=== PATIENT | female | born 1960 | race African-American/Black ===

== ENCOUNTER 2023-11-22 01:06 | Inpatient (IN) ==
[2023-11-22] MEDS: SODIUM CHLORIDE 0.9% 1,000 ML IV STA (01:37)
--- NOTE | 2023-11-22 01:37 | Emergency Department Note ---
History of Present Illness General Chief complaint: Abdominal Pain Stated complaint: ABD PAIN Time Seen by Provider: 11/22/23 01:20 History of Present Illness Maximum Pain Intensity: 9 This 62-year-old female presents the ER complaining of mid abdominal discomfort. Patient has history of constipation. She had a normal colonoscopy in the past. She has had gastric surgery. This was done 10 years ago in [facility]. She had a partial hysterectomy. No other stomach surgeries. Patient denies chest pain, dyspnea, fevers, vomiting, diarrhea. Patient also states has been feeling more rundown lately and sometimes lightheaded. Patient's heart rate did drop and she had an abnormal rhythm on the monitor. I did ask the tech to do an EKG. She was found to be heart block Mobitz type I. Home Medications Medication Instructions Recorded Confirmed Type amlodipine 10 mg tablet 10 mg PO QAM 11/22/23 11/22/23 History losartan 100 mg tablet 100 mg PO QAM 11/22/23 11/22/23 History Allergies Allergy/AdvReac Type Severity Reaction Status Date / Time latex Allergy Severe RESP Verified 11/22/23 01:54 DISTRESS/HIVES sulfamethoxazole Allergy Severe RESP Verified 11/22/23 01:54 [From Bactrim] DISTRESS/HIVES theophylline [From Rony-Dur] Allergy Severe RESP Verified 11/22/23 01:54 DISTRESS/HIVES trimethoprim [From Bactrim] Allergy Severe RESP Verified 11/22/23 01:54 DISTRESS/HIVES Past Med/Surg History Problem List (Updated 11/22/23 @ 03:03 by Arlyn Patiño PA-C) Abdominal pain (Acute) Atrioventricular block, Mobitz type 1, Wenckebach (Acute) Social History Smoking Status: Never smoker Preferred Language: Macedonian Current Living Situation: Significant Other Feels Safe at Home: Yes Review of Systems A total of 10 systems reviewed and were otherwise negative Physical Exam Vital Signs Vital Signs - 24 hr 11/22/23 01:18 11/22/23 01:42 11/22/23 01:46 Temperature 36.9 C Temperature Source Temporal Artery Scan Pulse Rate 70 73 64 Pulse Rate from SpO2 Sensor 76 Pulse Rhythm Respiratory Rate 16 22 Respiratory Effort / Characteristics Non-Labored Spontaneous Respiratory Depth Normal Blood Pressure 134/76 147/85 H Blood Pressure Mean 95 105 Blood Pressure Position Sitting Pulse Oximetry 98 100 Oxygen Delivery Method Room Air Sepsis Recent Fever Within 48 Hours No Sepsis New/Unexplained Change in Mental Status N/A Sepsis Action Taken by Nursing No Action Required 11/22/23 01:52 11/22/23 02:00 11/22/23 02:01 Temperature Temperature Source Pulse Rate 53 L 78 69 Pulse Rate from SpO2 Sensor 69 Pulse Rhythm Regular Respiratory Rate 18 18 Respiratory Effort / Characteristics Respiratory Depth Blood Pressure 140/79 Blood Pressure Mean 98 Blood Pressure Position Pulse Oximetry 98 98 Oxygen Delivery Method Room Air Room Air Sepsis Recent Fever Within 48 Hours Sepsis New/Unexplained Change in Mental Status Sepsis Action Taken by Nursing VITALS: Vitals are noted on the nurse's note and reviewed by myself. Vital signs stable. GENERAL: Pleasant female, in no acute distress, nondiaphoretic, well-developed well-nourished. SKIN: Capillary reflex less than 2 seconds. HEENT: Normocephalic. PERRLA. EOMI. Nares patent. Mucous membranes moist. Neck is supple without nuchal rigidity. HEART: Regular rate and rhythm LUNGS: Clear to auscultation bilaterally without wheezes, rales or rhonchi. No retractions or accessory muscle use. ABDOMEN: Positive bowel sounds x 4. Normal tympanic percussion. Soft, diffuse tenderness, without masses or organomegaly. Canseco sign negative. No guarding or rebound tenderness. no CVA tenderness MUSCULOSKELETAL: No gross musculoskeletal defects. NEURO: Patient was alert and oriented to person place and time. No focal neurological deficits. Course Administered Medications Discontinued Medications Sodium Chloride (Nss) 1,000 mls @ 999 mls/hr IV .Q1H1M STA Stop: 11/22/23 02:31 Last Infusion: 11/22/23 02:38 Dose: Infused Documented By: Admin: 11/22/23 01:37 Dose: 999 mls/hr Documented By: NIDHI Ioversol (Optiray 320 100ml) 100 ml IV ONCE ONE Stop: 11/22/23 02:42 Last Admin: 11/22/23 02:41 Dose: 93 ml Documented By: CARSON Medical Decision Making Medical Records Attestation: I reviewed the patient's medical records. Home Medications Current Medication List: was personally reviewed by il Laboratory Data Attestation: I reviewed the patient's lab results. 11/22/23 01:36 11/22/23 01:36 Lab Results 11/22/23 Range/Units 01:36 WBC 5.77 (4.8-10.8) K/ul RBC 3.62 L (4.20-5.40) M/uL Hgb 10.6 L (12.0-16.0) g/dl Hct 32.6 L (37.0-47.0) % MCV 90.1 (80.0-100.0) fL MCH 29.3 (25.0-34.0) pg MCHC 32.5 (32.0-36.0) g/dL RDW Std Deviation 43.7 (36.4-46.3) fL RDW Coeff of Albina 13.2 (11.5-14.5) % Plt Count 245 (130-400) K/uL MPV 11.6 (9.4-12.4) fL Immature Gran % (Auto) 0.2 % Neut % (Auto) 52.7 % Lymph % (Auto) 34.1 % Runnels % (Auto) 7.1 % Eos % (Auto) 5.4 % Baso % (Auto) 0.5 % Neut # (Auto) 3.04 (1.40-6.50) K/uL Lymph # (Auto) 1.97 (1.20-3.40) K/uL Runnels # (Auto) 0.41 (0.11-0.59) K/uL Eos # (Auto) 0.31 (0.00-0.50) K/uL Baso # (Auto) 0.03 (0.00-0.20) K/uL Immature Gran # (Auto) 0.01 (0.01-0.20) K/uL Sodium 139 (136-145) mmol/L Potassium 4.0 (3.5-5.1) mmol/L Chloride 107 (98-107) mmol/L Carbon Dioxide 24 (21-32) mmol/L Anion Gap 8 (3-11) BUN 11 (6-23) mg/dl Creatinine 0.68 (0.6-1.2) mg/dl Est Cr Clr Drug Dosing 98.0 ml/min Est GFR ( Amer) 109.4 ml/min Est GFR (Non-Af Amer) 94.4 ml/min BUN/Creatinine Ratio 16.2 (10-20) Glucose 91 (70-99(Fasting)) mg/dl Calcium 9.4 (8.6-10.3) mg/dl Magnesium 2.0 (1.7-2.4) mg/dl Total Bilirubin 0.4 (0.2-1.0) mg/dl AST 18 (13-39) U/L ALT 8 (7-52) U/L Alkaline Phosphatase 66 (34-104) U/L Troponin I High Sens 3.0 (0-14) pg/ml Total Protein 7.4 (6.0-8.3) gm/dl Albumin 4.1 (3.4-5.0) gm/dl Globulin 3.3 (2.5-4.0) gm/dl Albumin/Globulin Ratio 1.2 (0.9-2) Lipase 42 (11-82) U/L TSH 3.075 (0.300-4.500) uIu/ml Imaging Data Attestation: I personally reviewed and interpreted this imaging study as follows: Radiologist's Impression: Abdomen/Pelvis CT 11/22/23 01:32 Exam(s): CT ABDOMEN + PELVIS With Contrast EXAM: CT Abdomen and Pelvis With Intravenous Contrast CLINICAL HISTORY: Reason for exam: mid abd pain. TECHNIQUE: Axial computed tomography images of the abdomen and pelvis with intravenous contrast. CTDI is 27.51 mGy and DLP is 1328.43 mGy-cm. Automated exposure control was utilized for the study. A dose lowering technique was utilized adhering to the principles of ALARA. CONTRAST: Contrast must be dictated COMPARISON: No relevant prior studies available. FINDINGS: Lung bases: Unremarkable. No mass. No consolidation. ABDOMEN: Liver: Unremarkable. No mass. Gallbladder and bile ducts: Unremarkable. No calcified stones. No ductal dilation. Pancreas: Unremarkable. No mass. No ductal dilation. Spleen: Unremarkable. No splenomegaly. Adrenals: Unremarkable. No mass. Kidneys and ureters: Unremarkable. No solid mass. No hydronephrosis. Stomach and bowel: Gastric sleeve. Diverticulosis, without acute diverticulitis. No small bowel obstruction. No free intraperitoneal air. PELVIS: Appendix: No findings to suggest acute appendicitis. Bladder: Unremarkable. No mass. Reproductive: Unremarkable as visualized. ABDOMEN and PELVIS: Intraperitoneal space: Unremarkable. No free air. No significant fluid collection. Bones/joints: Degenerative changes of the spine. No acute fracture. No dislocation. Soft tissues: Unremarkable. Vasculature: Atherosclerotic changes of the aorta. No abdominal aortic aneurysm. Lymph nodes: Unremarkable. No enlarged lymph nodes. IMPRESSION: Diverticulosis, without acute diverticulitis. No small bowel obstruction. No free intraperitoneal air. Electronically signed by: Anuj Mcmullen MD 11/22/23 02:52 AM MDM Narrative Prior records/ancillary studies reviewed. Triage Nursing notes reviewed. Additional history obtained from nursing. The patient's history was concerning for abdominal pain. Differential diagnosis: Etiologies such as appendicitis, diverticulitis, PUD, biliary pathology, UTI, pancreatitis, obstruction, mesenteric ischemia, aortic pathology, infections, inflammatory bowel disease, renal colic, as well as others were entertained. Physical examination findings: As above. ER treatment provided: An order was placed for continuous cardiac monitoring. The monitor shows a rate of 60-100 with a sinus rhythm per my Independent interpretation. IV fluids On reassessment the patient felt better. Diagnostics interpreted by me: EKG was ordered for abnormal rhythm seen on monitor EKG: Sinus rhythm, no acute ST-T changes, with type II heart block Mobitz type I, impression type II heart block Mobitz type I per my independent interpretation The labs Independently Interpreted by myself revealed negative troponin, euthyroid, no worrisome leukocytosis Imaging studies: CT as above Consultation: A consultation was placed with the hospitalist. The case was discussed and diagnostics were reviewed. The patient was evaluated in the ER for further treatment. Exam and history seem consistent with new Mobitz type I heart block he has been feeling more rundown and lightheaded. CAT scan was negative. Medicine was consulted and case was discussed. Patient will be admitted to the medical service. By the evaluation outlined above emergent etiologies such as appendicitis, diverticulitis, PUD, biliary pathology, UTI, pancreatitis, obstruction, mesenteric ischemia, aortic pathology, infections, inflammatory bowel disease, renal colic, as well as others were deemed relatively unlikely. The pt informed about the findings as listed above. All questions were answered and pleased with the treatment. The chart was completed utilizing [employer] voice recognition software. Grammatical errors, random word insertions, pronoun errors, and incomplete sentences are an occassional consequence of this system due to software limitations, ambient noise, and hardware issues. Any formal questions or concerns about the content, text, or information contained within the body of this dictation should be directly addressed to the physician dam tender assistant for clarification. Impression & Plan Atrioventricular block, Mobitz type 1, Wenckebach, Abdominal pain Discharge Plan Visit Data Chief Complaint: Abdominal Pain Stated Complaint: ABD PAIN ED Provider: Leonidas Lind ED Midlevel Provider: Arlyn Patiño Discharge Problem: Atrioventricular block, Mobitz type 1, Wenckebach, Abdominal pain Patient Disposition: Admitted As Inpatient Condition: Good Forms Stand Alone Forms: [facility] [place] [employer] Prescriptions Prescriptions: No Action amlodipine 10 mg tablet 10 mg PO QAM losartan 100 mg tablet 100 mg PO QAM Referrals Referrals: PCP,NO [Physician] -
[2023-11-22 01:49] LABS: Basophils # (auto) 0.03 K/uL (0.00-0.20); Basophils % (auto) 0.5 %; Eosinophils # (auto) 0.31 K/uL (0.00-0.50); Eosinophils % (auto) 5.4 %; Hematocrit (blood only) 32.6 % (37.0-47.0); Hemoglobin 10.6 g/dl (12.0-16.0); Immature Granulocytes # (auto) 0.01 K/uL (0.01-0.20); Immature Granulocytes % (auto) 0.2 %; Lymphocytes # (auto) 1.97 K/uL (1.20-3.40); Lymphocytes % (auto) 34.1 %; Mean Corpuscular Hemoglobin 29.3 pg (25.0-34.0); Mean Corpuscular Hgb Conc 32.5 g/dL (32.0-36.0); Mean Corpuscular Volume 90.1 fL (80.0-100.0); Mean Platelet Volume 11.6 fL (9.4-12.4); Monocytes # (auto) 0.41 K/uL (0.11-0.59); Monocytes % (auto) 7.1 %; Neutrophils # (auto) 3.04 K/uL (1.40-6.50); Neutrophils % (auto) 52.7 %; Platelet Count 245 K/uL (130-400); RDW Coefficient of Variation 13.2 % (11.5-14.5); RDW Standard Deviation 43.7 fL (36.4-46.3); Red Blood Count 3.62 M/uL (4.20-5.40); White Blood Count 5.77 K/ul (4.8-10.8)
[2023-11-22 02:06] LABS: Albumin Globulin Ratio 1.2 (0.9-2); Albumin Level 4.1 gm/dl (3.4-5.0); BUN Creatinine Ratio 16.2 (10-20); Bilirubin,Total 0.4 mg/dl (0.2-1.0); Calcium 9.4 mg/dl (8.6-10.3); Est GFR (African American) 109.4 ml/min; Est GFR (Non-African American) 94.4 ml/min; Globulin 3.3 gm/dl (2.5-4.0); Total Protein 7.4 gm/dl (6.0-8.3)
[2023-11-22 02:21] LABS: Thyroid Stimulating Hormone 3.075 uIu/ml (0.300-4.500)
[2023-11-22] MEDS: OPTIRAY 320 100ml IV ONE (02:41)
--- NOTE | 2023-11-22 02:53 | CT Scan Report ---
Exam(s): CT ABDOMEN + PELVIS With Contrast EXAM: CT Abdomen and Pelvis With Intravenous Contrast CLINICAL HISTORY: Reason for exam: mid abd pain. TECHNIQUE: Axial computed tomography images of the abdomen and pelvis with intravenous contrast. CTDI is 27.51 mGy and DLP is 1328.43 mGy-cm. Automated exposure control was utilized for the study. A dose lowering technique was utilized adhering to the principles of ALARA. CONTRAST: Contrast must be dictated COMPARISON: No relevant prior studies available. FINDINGS: Lung bases: Unremarkable. No mass. No consolidation. ABDOMEN: Liver: Unremarkable. No mass. Gallbladder and bile ducts: Unremarkable. No calcified stones. No ductal dilation. Pancreas: Unremarkable. No mass. No ductal dilation. Spleen: Unremarkable. No splenomegaly. Adrenals: Unremarkable. No mass. Kidneys and ureters: Unremarkable. No solid mass. No hydronephrosis. Stomach and bowel: Gastric sleeve. Diverticulosis, without acute diverticulitis. No small bowel obstruction. No free intraperitoneal air. PELVIS: Appendix: No findings to suggest acute appendicitis. Bladder: Unremarkable. No mass. Reproductive: Unremarkable as visualized. ABDOMEN and PELVIS: Intraperitoneal space: Unremarkable. No free air. No significant fluid collection. Bones/joints: Degenerative changes of the spine. No acute fracture. No dislocation. Soft tissues: Unremarkable. Vasculature: Atherosclerotic changes of the aorta. No abdominal aortic aneurysm. Lymph nodes: Unremarkable. No enlarged lymph nodes. IMPRESSION: Diverticulosis, without acute diverticulitis. No small bowel obstruction. No free intraperitoneal air. Electronically signed by: Anuj Mcmullen MD 11/22/23 02:52 AM
[2023-11-22 04:29] LABS: Appearance Urine Clear (Clear); Bacteria Urine Automated None Seen (None Seen); Bilirubin Urine Negative (Negative); Blood Urine Negative (Negative); Cast Urine Automated 0-2 /lpf (0-2); Color Urine Yellow; Epithelial Cell Urine Auto 0-2 /hpf (0-2); Glucose Urine UA Negative (Negative); Ketones Urine Trace (Negative); Leukocyte Esterase Urine 1+ (Negative); Nitrite Urine Negative (Negative); Protein Urine Negative (Negative); RBC Urine Automated 0-2 /hpf (0-2); Specific Gravity Urine 1.029 (1.000-1.030); Urobilinogen Urine Negative (Negative); WBC Urine Automated 0-5 /hpf (0-5); pH Urine 5.5 (4.5-7.5)
[2023-11-22 06:02] LABS: Lyme Screen Rflx Confirmation Positive (Negative)
[2023-11-22 06:36] LABS: Lyme Ab IgG 2nd Tier Confirm Positive (Negative); Lyme Ab IgM 2nd Tier Confirm Negative (Negative)
[2023-11-22] MEDS ORDERED: POLYETHYLENE (MIRALAX) 17 GM PACK PO PRN (08:39)
[2023-11-22] MEDS ORDERED: NITROGLYCERIN SL 0.4 MG/TAB TAB SL PRN (08:39)
--- NOTE | 2023-11-22 09:03 | History & Physical Report ---
Date of Service November 22, 2023 Assessment & Plan (1) Atrioventricular block, Mobitz type 1, Ari: Plan: 62-year-old female with past medical history significant for type 2 diabetes, obstructive sleep apnea on BIPAP, hypertension, depression ,bipolar 1 disorder, s/p gastric sleeve procedure comes in because of abdominal pain. Patient says lately having constipation. Using stool softener. Last night had severe abdominal pain which prompted her to come to the ER. Currently abdominal pain got resolved but EKG showed stable Mobitz type 1 heart block. Patient states she was told couple of weeks ago to stop bipap as she no longer has sleep apnea. But then patient felt weak and slow she restarted herself BiPAP last week and seems topped her psychiatric meds. Says she has feeling of strain in her heart and thinks its from not using bipap while sleeping.She has some feeling of straining of heart now. Denies any fevers. No shortness of breath. No nausea. No headache. No blurred vision. No runny nose or sore throat. No cough. Normal micturition. No fevers. Hemodynamics are okay. She is from [place] and recently moved to [place]. Mobitz type I heart block Lyme screen came back positive will start on Rocephin follow echo telemetry consult cardiology for further recommendations obstructive sleep apnea on BiPAP hypertension on amlodipine and losartan will monitor diabetes currently not on meds will follow HbA1c levels obesity s/p gastric sleeve procedure abdominal pain currently resolved CT abdomen pelvis okay lipase is okay history of depression and bipolar 1 disorder currently not on any medications. DVT prophylaxis SCDs for now disposition telemetry full code. History of Present Illness Chief Complaint: Abdominal pain. Mobitz type I heart block Primary Care Provider: Any Gutierrez MD 62-year-old female with past medical history significant for type 2 diabetes, obstructive sleep apnea on BIPAP, hypertension, depression ,bipolar 1 disorder, s/p gastric sleeve procedure comes in because of abdominal pain. Patient says lately having constipation. Using stool softener. Last night had severe abdominal pain which prompted her to come to the ER. Currently abdominal pain got resolved but EKG showed stable Mobitz type 1 heart block. Patient states she was told couple of weeks ago to stop bipap as she no longer has sleep apnea. But then patient felt weak and slow she restarted herself BiPAP last week and seems topped her psychiatric meds. Says she has feeling of strain in her heart and thinks its from not using bipap while sleeping.She has some feeling of straining of heart now. Denies any fevers. No shortness of breath. No nausea. No headache. No blurred vision. No runny nose or sore throat. No cough. Normal micturition. No fevers. Hemodynamics are okay. She is from [facility] and recently moved to [place]. Past medical history. As mentioned above past surgical history. Left breast biopsy. Gastric bypass for obesity. Reduction of breast. Abortions. Hysterectomy with removal of ovaries. Social history. Remote history of smoking.. No alcohol use. drug use. Family history. Father from seizures. Mother had a pacemaker. Brother and sister on dialysis. Allergies Allergy/AdvReac Type Severity Reaction Status Date / Time latex Allergy Severe RESP Verified 11/22/23 01:54 DISTRESS/HIVES sulfamethoxazole Allergy Severe RESP Verified 11/22/23 01:54 [From Bactrim] DISTRESS/HIVES theophylline [From Rony-Dur] Allergy Severe RESP Verified 11/22/23 01:54 DISTRESS/HIVES trimethoprim [From Bactrim] Allergy Severe RESP Verified 11/22/23 01:54 DISTRESS/HIVES Home Medications Medication Instructions Recorded Confirmed Type amlodipine 10 mg tablet 10 mg PO QAM 11/22/23 11/22/23 History losartan 100 mg tablet 100 mg PO QAM 11/22/23 11/22/23 History Past Med/Surg History Problem List (Updated 11/22/23 @ 03:03 by Arlyn Patiño PA-C) Abdominal pain (Acute) Atrioventricular block, Mobitz type 1, Wenckebach (Acute) Social History Smoking Status: Never smoker Hx Alcohol Use: Yes Alcohol type: wine Hx Substance Use: No Preferred Language: Upper Sorbian Communication Ability: Effective Hand Tacker Required: No Beliefs That Will Affect Care: Islam Islam Beliefs: Advent, pentacostal. Current Living Situation: Spouse Current Living Situation Comment: Lives with and 1 grandson. Other Information That Helps Us Care for You: No Feels Safe at Home: Yes Safety Concerns: Feels Safe At This Time Assistive Devices: Brace/Splint/Immobilizer Assistive Devices Comment: L wrist splint worn PRN strain. Review of Systems Review of Systems: All systems reviewed & are unremarkable except as noted in HPI & below Physical Exam Physical Exam: General- Not in distress Head- atraumatic Eyes- PERRL. ENT- oropharynx clear Neck- supple, no JVD. Lungs- clear to auscultation no wheezing or crackles. Heart- regular rhythm; no murmur, no gallop. Abdomen- normal bowel sounds, soft, nontender, no distension. Extremities- no pretibial edema, no erythema seen Neuro- alert, oriented PERRL, no facial palsy; no dysarthria; moves extremities Results & Data Results & Data Vital Signs (Past 12 Hours) Vital Signs Temp Pulse Resp BP Pulse Ox O2 Del Method 11/22/23 06:30 62 16 130/70 98 Room Air 11/22/23 05:31 48 L 16 125/75 98 Room Air 11/22/23 05:00 47 L 17 183/88 H 96 Room Air 11/22/23 05:00 43 L 11/22/23 04:30 50 L 16 134/75 100 Room Air 11/22/23 04:00 75 18 160/77 H 100 Room Air 11/22/23 03:30 56 L 16 162/88 H 98 Room Air 11/22/23 02:01 69 18 140/79 98 Room Air 11/22/23 02:00 78 18 98 Room Air 11/22/23 01:52 53 L 11/22/23 01:46 64 11/22/23 01:42 73 22 147/85 H 100 11/22/23 01:18 36.9 C 70 16 134/76 98 Room Air Diagnostic Findings Laboratory Results WBC 5.77 K/ul (4.8-10.8) 11/22/23 01:36 RBC 3.62 M/uL (4.20-5.40) L 11/22/23 01:36 Hgb 10.6 g/dl (12.0-16.0) L 11/22/23 01:36 Hct 32.6 % (37.0-47.0) L 11/22/23 01:36 MCV 90.1 fL (80.0-100.0) 11/22/23 01:36 MCH 29.3 pg (25.0-34.0) 11/22/23 01:36 MCHC 32.5 g/dL (32.0-36.0) 11/22/23 01:36 RDW Std Deviation 43.7 fL (36.4-46.3) 11/22/23 01:36 RDW Coeff of Albina 13.2 % (11.5-14.5) 11/22/23 01:36 Plt Count 245 K/uL (130-400) 11/22/23 01:36 MPV 11.6 fL (9.4-12.4) 11/22/23 01:36 Immature Gran % (Auto) 0.2 % 11/22/23 01:36 Neut % (Auto) 52.7 % 11/22/23 01:36 Lymph % (Auto) 34.1 % 11/22/23 01:36 Zavala % (Auto) 7.1 % 11/22/23 01:36 Eos % (Auto) 5.4 % 11/22/23 01:36 Baso % (Auto) 0.5 % 11/22/23 01:36 Neut # (Auto) 3.04 K/uL (1.40-6.50) 11/22/23 01:36 Lymph # (Auto) 1.97 K/uL (1.20-3.40) 11/22/23 01:36 Zavala # (Auto) 0.41 K/uL (0.11-0.59) 11/22/23 01:36 Eos # (Auto) 0.31 K/uL (0.00-0.50) 11/22/23 01:36 Baso # (Auto) 0.03 K/uL (0.00-0.20) 11/22/23 01:36 Immature Gran # (Auto) 0.01 K/uL (0.01-0.20) 11/22/23 01:36 Sodium 139 mmol/L (136-145) 11/22/23 01:36 Potassium 4.0 mmol/L (3.5-5.1) 11/22/23 01:36 Chloride 107 mmol/L (98-107) 11/22/23 01:36 Carbon Dioxide 24 mmol/L (21-32) 11/22/23 01:36 Anion Gap 8 (3-11) 11/22/23 01:36 BUN 11 mg/dl (6-23) 11/22/23 01:36 Creatinine 0.68 mg/dl (0.6-1.2) 11/22/23 01:36 Est Cr Clr Drug Dosing 98.0 ml/min 11/22/23 01:36 Est GFR ( Amer) 109.4 ml/min 11/22/23 01:36 Est GFR (Non-Af Amer) 94.4 ml/min 11/22/23 01:36 BUN/Creatinine Ratio 16.2 (10-20) 11/22/23 01:36 Glucose 91 mg/dl (70-99(Fasting)) 11/22/23 01:36 Calcium 9.4 mg/dl (8.6-10.3) 11/22/23 01:36 Magnesium 2.0 mg/dl (1.7-2.4) 11/22/23 01:36 Total Bilirubin 0.4 mg/dl (0.2-1.0) 11/22/23 01:36 AST 18 U/L (13-39) 11/22/23 01:36 ALT 8 U/L (7-52) 11/22/23 01:36 Alkaline Phosphatase 66 U/L (34-104) 11/22/23 01:36 Troponin I High Sens 3.0 pg/ml (0-14) 11/22/23 01:36 Total Protein 7.4 gm/dl (6.0-8.3) 11/22/23 01:36 Albumin 4.1 gm/dl (3.4-5.0) 11/22/23 01:36 Globulin 3.3 gm/dl (2.5-4.0) 11/22/23 01:36 Albumin/Globulin Ratio 1.2 (0.9-2) 11/22/23 01:36 Lipase 42 U/L (11-82) 11/22/23 01:36 TSH 3.075 uIu/ml (0.300-4.500) 11/22/23 01:36 Urine Color Yellow 11/22/23 Unknown Urine Appearance Clear (Clear) 11/22/23 Unknown Urine pH 5.5 (4.5-7.5) 11/22/23 Unknown Ur Specific Winters 1.029 (1.000-1.030) 11/22/23 Unknown Urine Protein Negative (Negative) 11/22/23 Unknown Urine Glucose (UA) Negative (Negative) 11/22/23 Unknown Urine Ketones Trace (Negative) H 11/22/23 Unknown Urine Blood Negative (Negative) 11/22/23 Unknown Urine Nitrite Negative (Negative) 11/22/23 Unknown Urine Bilirubin Negative (Negative) 11/22/23 Unknown Urine Urobilinogen Negative (Negative) 11/22/23 Unknown Ur Leukocyte Esterase 1+ (Negative) H 11/22/23 Unknown Urine WBC (Auto) 0-5 /hpf (0-5) 11/22/23 Unknown Urine RBC (Auto) 0-2 /hpf (0-2) 11/22/23 Unknown U Hyaline Cast (Auto) 0-2 /lpf (0-2) 11/22/23 Unknown U Epithel Cells (Auto) 0-2 /hpf (0-2) 11/22/23 Unknown Urine Bacteria (Auto) None Seen (None Seen) 11/22/23 Unknown Lyme Disease Screen Positive (Negative) H 11/22/23 04:23 Lyme Tier 2 IgG Confirm Positive (Negative) H 11/22/23 04:23 Lyme Tier 2 IgM Confirm Negative (Negative) 11/22/23 04:23 Impressions Abdomen/Pelvis CT 11/22/23 01:32 Exam(s): CT ABDOMEN + PELVIS With Contrast EXAM: CT Abdomen and Pelvis With Intravenous Contrast CLINICAL HISTORY: Reason for exam: mid abd pain. TECHNIQUE: Axial computed tomography images of the abdomen and pelvis with intravenous contrast. CTDI is 27.51 mGy and DLP is 1328.43 mGy-cm. Automated exposure control was utilized for the study. A dose lowering technique was utilized adhering to the principles of ALARA. CONTRAST: Contrast must be dictated COMPARISON: No relevant prior studies available. FINDINGS: Lung bases: Unremarkable. No mass. No consolidation. ABDOMEN: Liver: Unremarkable. No mass. Gallbladder and bile ducts: Unremarkable. No calcified stones. No ductal dilation. Pancreas: Unremarkable. No mass. No ductal dilation. Spleen: Unremarkable. No splenomegaly. Adrenals: Unremarkable. No mass. Kidneys and ureters: Unremarkable. No solid mass. No hydronephrosis. Stomach and bowel: Gastric sleeve. Diverticulosis, without acute diverticulitis. No small bowel obstruction. No free intraperitoneal air. PELVIS: Appendix: No findings to suggest acute appendicitis. Bladder: Unremarkable. No mass. Reproductive: Unremarkable as visualized. ABDOMEN and PELVIS: Intraperitoneal space: Unremarkable. No free air. No significant fluid collection. Bones/joints: Degenerative changes of the spine. No acute fracture. No dislocation. Soft tissues: Unremarkable. Vasculature: Atherosclerotic changes of the aorta. No abdominal aortic aneurysm. Lymph nodes: Unremarkable. No enlarged lymph nodes. IMPRESSION: Diverticulosis, without acute diverticulitis. No small bowel obstruction. No free intraperitoneal air. Electronically signed by: Anuj Mcmullen MD 11/22/23 02:52 AM ECG Additional Comments: ECG sinus rhythm with second-degree AV block Mobitz type I At rate of 48. No acute ST changes seen. Code Status & VTE Plan VTE Prophylaxis Plan VTE Prophylaxis will be ordered: Yes
--- NOTE | 2023-11-22 09:14 | Cardiology Consultation ---
Date of Consultation November 22, 2023 Assessment & Plan (1) Positive Lyme disease serology: (2) Atrioventricular block, Mobitz type 1, Wenckebach: (3) Abdominal pain: (4) Hypertension: Plan Assessment: 62 year-old female with no prior history of conduction disease presents for abdominal pain, profound fatigue and feelings of "slow heart rates". Plan: -No known tick bites, no rashes or localized rashes;however, has been out in high exposure areas. -Positive Lyme with positive IgG, but negative IgM making it difficult to assert the lymes as a definitive cause of her heart block. -Extensive review of telemetry shows intermittent SB/SR with 2nd degree Mobitz I (Wenckebach) heart block. No evidence of type II or third degree heart block per review. -Patient denies any dizziness, lightheadedness or near syncopal symptoms. -Started on IV Rocephin and PO Doxycycline -Abnormal UA with patient reports of some UTI symptoms. given her abdominal pain with negative CT, would consider possible UTI. patient already receiving Rocephin. -Obtain echocardiogram to assess overall structure and function. -BP controlled at this time. Continue Losartan 100mg Daily and Amlodipine 10mg Daily as per current regimen. Case has been discussed with Dr. Cr. Further recommendations regarding plan of care as per his assessment. I spent a total of 40 minutes on the date of service in preparation, delivery, documentation of the care provided to the patient excluding any time spent in the performance of separately billed services. ELLIE Munroe [facility] Cardiology [facility] Supervising Physician Co-Signing Physician Notes Attending attestation: Case reviewed with the advanced practitioner. I have personally performed a history and physical examination on the patient. I have reviewed the advanced practitioner's documentation on the date of service referenced in note, and I agree with, and take responsibility for the plan of care. Subjective: Patient with vague illness of several months duration, generalized progressive debilitating fatigue. No definite fever or rash. Does of course live in an endemic area for Lyme disease. Exam: Cardiovascular regular rhythm, no murmurs, no edema Data: EKG performed 11/22/2023 at 2:11 AM: Sinus rhythm at 50 bpm with Mobitz type I second-degree AV block. Intermittent Mobitz second-degree AV block persisted until approximately 6 AM on telemetry, sinus rhythm in the 70s to 80s noted most recently. High-sensitivity troponin negative x 2 IgG Lyme positive, IgM Lyme negative Impression/ Plan: Generalized fatigue, sinus bradycardia with Mobitz type I second-degree heart block (Wenckebach block) noted on presentation. Perhaps related to Lyme carditis however Lyme exposure appears to be subacute or chronic. Continue telemetry monitoring while on IV Rocephin. Patient also on oral doxycycline. Echocardiogram has been completed and will be reviewed. I spent a total of 25 minutes coordinating, documenting, and providing care for this patient excluding time spent in the performance of separately billed services or time spent by another provider. Johnathan Cr DO History of Present Illness Reason for Consultation: Siva Gerber heart block Requesting Physician: Gala cabrera Attending Physician: Charles Luciano MD History of Present Illness HPI: Patient is a 62 year old female with PMHx significant for HTN, CJ on CPAP, type 2 DM, bipolar depression, prior gastric sleeve surgery that had initially presented to the ED with complaints of abdominal pain and constipation. She s tates that has felt really "off" the past few weeks. Endorses extreme fatigue, and feeling as though her "heart was moving really slow". Denies any arcelia chest pain, pressure, palpitations, or shortness of breath. Denies any recent cold or flu like symptoms, no fever or chills. She initially attributed her symptoms to being taken of CPAP which has since been restarted, and then thought it was like ly due to stopping changing some of her psych and BP medications. Lyme screen positive. IgG positive. IgM negative. UA abnormal, which patient had mentioned some urinary symptoms. CT of abdomen and pelvis demonstrates diverticulosis with no diverticulitis or obstruction. EKG today 0211: SB with 2nd degree AV block, Mobitz I EKG today 0504: SB with 2nd degree AV block, Mobitz I Patient was started immediately on IV Rocephin and PO doxycycline. Allergies Allergy/AdvReac Type Severity Reaction Status Date / Time latex Allergy Severe RESP Verified 11/22/23 01:54 DISTRESS/HIVES sulfamethoxazole Allergy Severe RESP Verified 11/22/23 01:54 [From Bactrim] DISTRESS/HIVES theophylline [From Rony-Dur] Allergy Severe RESP Verified 11/22/23 01:54 DISTRESS/HIVES trimethoprim [From Bactrim] Allergy Severe RESP Verified 11/22/23 01:54 DISTRESS/HIVES Home Medications Medication Instructions Recorded Confirmed Type amlodipine 10 mg tablet 10 mg PO QAM 11/22/23 11/22/23 History losartan 100 mg tablet 100 mg PO QAM 11/22/23 11/22/23 History Patient History Social History Smoking Status: Never smoker Hx Alcohol Use: Yes Alcohol type: wine Hx Substance Use: No Preferred Language: Urdu Communication Ability: Effective Medicare Biller Required: No Beliefs That Will Affect Care: Evangelical Evangelical Beliefs: Lutheran, pentacostal. Current Living Situation: Spouse Current Living Situation Comment: Lives with and 1 grandson. Other Information That Helps Us Care for You: No Feels Safe at Home: Yes Safety Concerns: Feels Safe At This Time Assistive Devices: Brace/Splint/Immobilizer Assistive Devices Comment: L wrist splint worn PRN strain. Review of Systems Review of Systems: All systems reviewed & are unremarkable except as noted in HPI & below Physical Exam Constitutional: well developed and well nourished; no acute distress and not ill appearing Neck: normal visual inspection and trachea midline Respiratory: normal respiratory effort, lungs clear to auscultation Cardiovascular: Rate/Rhythm: regular rhythm and + bradycardic (Intermittent 2nd degree AVB Mobitz I) Heart Sounds: normal S1 and normal S2; no murmur Vessels: dorsalis pedis pulses present; no JVD Extremities: no edema Skin: no rashes, warm and dry Psychiatric: A+Ox3, euthymic affect Results & Data Vital Signs (Past 12 Hours) Vital Signs Temp Pulse Pulse Resp BP BP Pulse Ox 11/22/23 08:39 11/22/23 08:26 36.5 C 76 18 158/99 H 100 11/22/23 06:30 62 16 130/70 98 11/22/23 05:31 48 L 16 125/75 98 11/22/23 05:00 47 L 17 183/88 H 96 11/22/23 05:00 43 L 11/22/23 04:30 50 L 16 134/75 100 11/22/23 04:00 75 18 160/77 H 100 11/22/23 03:30 56 L 16 162/88 H 98 11/22/23 02:01 69 18 140/79 98 11/22/23 02:00 78 18 98 11/22/23 01:52 53 L 11/22/23 01:46 64 11/22/23 01:42 73 22 147/85 H 100 11/22/23 01:18 36.9 C 70 16 134/76 98 O2 Del Method 11/22/23 08:39 Room Air 11/22/23 08:26 Room Air 11/22/23 06:30 Room Air 11/22/23 05:31 Room Air 11/22/23 05:00 Room Air 11/22/23 05:00 11/22/23 04:30 Room Air 11/22/23 04:00 Room Air 11/22/23 03:30 Room Air 11/22/23 02:01 Room Air 11/22/23 02:00 Room Air 11/22/23 01:52 11/22/23 01:46 11/22/23 01:42 11/22/23 01:18 Room Air Laboratory Results Cardiac Enzymes 11/22/23 11/22/23 Range/Units 01:36 08:49 AST 18 (13-39) U/L Troponin I High Sens 3.0 3.8 (0-14) pg/ml CBC 11/22/23 Range/Units 01:36 WBC 5.77 (4.8-10.8) K/ul RBC 3.62 L (4.20-5.40) M/uL Hgb 10.6 L (12.0-16.0) g/dl Hct 32.6 L (37.0-47.0) % Plt Count 245 (130-400) K/uL Neut # (Auto) 3.04 (1.40-6.50) K/uL Lymph # (Auto) 1.97 (1.20-3.40) K/uL Upson # (Auto) 0.41 (0.11-0.59) K/uL Eos # (Auto) 0.31 (0.00-0.50) K/uL Baso # (Auto) 0.03 (0.00-0.20) K/uL Comprehensive Metabolic Panel 11/22/23 Range/Units 01:36 Sodium 139 (136-145) mmol/L Potassium 4.0 (3.5-5.1) mmol/L Chloride 107 (98-107) mmol/L Carbon Dioxide 24 (21-32) mmol/L BUN 11 (6-23) mg/dl Creatinine 0.68 (0.6-1.2) mg/dl Glucose 91 (70-99(Fasting)) mg/dl Calcium 9.4 (8.6-10.3) mg/dl AST 18 (13-39) U/L ALT 8 (7-52) U/L Alkaline Phosphatase 66 (34-104) U/L Total Protein 7.4 (6.0-8.3) gm/dl Albumin 4.1 (3.4-5.0) gm/dl Intake and Output 11/21/23 11/22/23 11/22/23 22:59 06:59 14:59 Intake Total 1000 / 1000 50 / 50 Balance 1000 / 1000 50 / 50 Intake: IV 1000 / 1000 50 / 50 Sodium Chloride 0.9% 1,000 ml @ 1000 / 1000 999 mls/hr IV .Q1H1M ST[facility] Rx#: [id number] cefTRIAXone SODIUM 2,000 mg In 50 / 50 50 ml @ 100 mls/hr IV Q24H [facility] Rx#:[id number] Other: Weight 89.7 kg 91.9 kg Weight Measurement Method Chair Scale Built in [facility] Patient Weight 11/23/23 06:59 Weight 91.9 kg
[2023-11-22] MEDS: LOSARTAN POTASSIUM 50 MG TAB PO SCH (09:32)
[2023-11-22] MEDS: amLODIPine BESYLATE 5 MG TAB PO SCH (09:33)
--- NOTE | 2023-11-22 09:34 | Electrocardiogram Report ---
Test Reason : Blood Pressure : / mmHG Vent. Rate : 048 BPM Atrial Rate : 068 BPM P-R Int : 000 ms QRS Dur : 096 ms QT Int : 438 ms P-R-T Axes : 061 022 029 degrees QTc Int : 391 ms Sinus rhythm with 2nd degree A-V block (Mobitz I) Abnormal ECG When compared with ECG of 22-NOV-2023 02:11, (unconfirmed) No significant change was found Confirmed by Toby Morse ([id number]) on 11/22/2023 9:33:55 AM Referred By: REFERRED SELF Confirmed By:Toby Morse
--- NOTE | 2023-11-22 09:34 | Electrocardiogram Report ---
Test Reason : Blood Pressure : / mmHG Vent. Rate : 050 BPM Atrial Rate : 065 BPM P-R Int : 000 ms QRS Dur : 090 ms QT Int : 446 ms P-R-T Axes : 065 017 017 degrees QTc Int : 406 ms Sinus rhythm with 2nd degree A-V block (Mobitz I) Abnormal ECG No previous ECGs available Confirmed by Toby Morse ([id number]) on 11/22/2023 9:33:38 AM Referred By: REFERRED SELF Confirmed By:Toby Morse
[2023-11-22] MEDS: DOXYCYCLINE HYCLATE 100 MG CAP PO SCH (09:50)
[2023-11-22] MEDS: cefTRIAXone SODIUM 2,000 MG/50 ML BAG IV SCH (09:50)
--- OUTSIDE RECORDS SUMMARY | 2023-11-22 10:26 | External Medical Summary | Summary of Care ---
Author Name Unknown Organization [facility] Address [address] [place] [address] Phone [phone] Care Team Providers Care Health Record Technician Name Role Phone Any Gutierrez MD Primary Care Provider [phone] Reason for Visit * Reason Onset Date Comments Blood Pressure Check 11/07/2023 Encounter Details Date Type Department Care Team (Late st Contact Info) Description 11/07/2023 10:30 AM EDT Nurse Only Ancillary [facility] [address] [place] [address] [place], Nurse Fam Prac [facility] [address] [place] [address] Blood Pressure Check Allergies Active Allergy Reactions Criticality Noted Date Comments Sulfamethoxazole-Trimethoprim Anaphylaxis High 07/18 Latex Hives 07/19/2023 documented as of this encounter (statuses as of 11/07/2023) Medications Medication Sig Dispensed Refills Start Date End Date Status Losartan Potassium 100 MG Oral Tablet (Cozaar) Take 1 Tablet by mouth in the morning. Active clonazePAM 0.5 MG Oral Tablet (KlonoPIN) Take 1 Tablet by mouth in the morning and 1 Tablet at noon and 1 Tablet before bedtime. 90 Tablet 1 10/17/2023 Active traZODone HCl 50 MG Oral Tablet (Desyrel) Take 1 Tablet by mouth at bedtime. 30 Tablet 1 10/17/2023 Active Cariprazine HCl 3 MG Oral Capsule (Vraylar) Take 1 Capsule by mouth in the morning. 30 Capsule 1 10/17/2023 Active documented as of this encounter (statuses as of 11/07/2023) Active Problems Problem Noted Date Diagnosed Date Food insecurity 08/13/2023 Overview: Per [facility] Protocol Hypertension goal BP (blood pressure) < 140/90 0 07/19/2023 Type 2 diabetes mellitus wit h hemoglobin A1c goal of less than 7.0% 07/19/2023 Bipolar 1 disorder 07/19/2023 S/P gastric sleeve procedure 07/19/2023 CJ on CPAP 07/19/2023 documented as of this encounter (statuses as of 11/07/2023) Social History Tobacco Use Types Packs/Day Years Used Date Smoking Tobacco: Never Smokeless Tobacco: Never Hunger Vital Sign Answer Date Recorded Within the past 12 months, y ou worried that your food would run out before you got the money to buy more. Sometimes true Within the past 12 months, t he food you bought just didn't last and you didn't have money to get more. Never true Childcare Answer Date Recorded Do you feel overwhelmed with taking care of a child, family member or friend? No 08/01/2023 Does your family need help f inding childcare? (Household - for ages 0-17 years) Not on file 08/01/2023 Clothing Answer Date Recorded Have you been unable to get clothing when it was really needed? No 08/01/2023 Is your family able to get c lothes or diapers when needed? (Household - for ages 0-17 years) Not on file 08/01/2023 Personal Safety Answer Date Recorded Do you feel unsafe or have concerns for your saf ety? No 08/01/2023 Do you have concerns for you r family's safety? (Household - for ages 0-17 years) Not on file 08/01/2023 Utilities Answer Date Recorded Do you have trouble paying y our heating, water, or electric bill? No 08/01/2023 Is your family able to pay t he heat, water, or electric bill? (Household - for ages 0-17 years) Not on file 08/01/2023 Does your family have access to good internet? (Household - for ages 0-17 years) Not on file 08/01/2023 Employment Status Answer Date Recorded Are you unemployed or without regular income? No 08/01/2023 Does the household have a re gular source of income? (Household - for ages 0-17 years) Not on file 08/01/2023 Social Connections Answer Date Recorded How often do you feel lonely or isolated from th ose around you? Never 08/01/2023 Financial Resource Strain Answer Date R ecorded Do you have any trouble payi ng for your medications, or do you think you might in the future? No 08/01/2023 Does your family have troubl e paying for medicine? (Household - for ages 0-17 years) Not on file 08/01/2023 Transportation Needs Answer Date Record ed READ ONLY Do you have troubl e getting a ride to medical visits or work? Never True 08/01/2023 Does your family have a hard time getting a ride to doctors visits? (Household - for ages 0-17 years) Not on file 08/01/2023 Has lack of transportation k ept you from medical appointments, meetings, work, or from getting things needed for daily living? Check all that apply. (Adult - for ages 18 years and over) Not on file 08/01/2023 Do you (or your family) have trouble finding or paying for a ride (transportation)? (Household - for ages 0-17 years) Not on file 08/01/2023 Housing Stability Answer Date Recorded Do you currently live in a s helter or have no steady place to sleep at night? No 08/01/2023 READ ONLY Do you think you a re at risk of becoming homeless? No 08/01/2023 Does your family worry about paying for your home or becoming homeless? (Household - for ages 0-17 years) Not on file 0 08/01/2023 Are you homeless or worried that you might be in the future? (Adult - for ages 18 years and over) Not on file Are you (or your family) lexii eless or worried that you might be in the future? (Household - for ages 0-17 years) Not on file Food Insecurity Answer Date Recorded Do you need food for this week? No 08/01/2023 Are you able to get enough f ood for your family? (Household - for ages 0-17 years) Not on file 08/01/2023 Does your family need food t his week? (Household - for ages 0-17 years) Not on file 08/01/2023 Do you always have enough fo od for your family? (Household - for ages 0-17 years) Not on file 08/01/2023 Sex and Gender Information Value Date Recorded Sex Assigned at Female 08/01/2023 8:18 AM EDT Gender Identity Female 08/01/2023 8:18 AM EDT Sexual Orientation Straight 08/01/2023 8: 18 AM EDT Job Start Date Occupation Industry Not on file Not on file Not on file documented as of this encounter Last Filed Vital Signs Vital Sign Reading Time Taken Comments Blood Pressure 106/64 11/07/2023 10:19 AM EDT Pulse - - Temperature - - Respiratory Rate - - Oxygen Saturation - - Inhaled Oxygen Concentration - - Weight - - Height - - Body Mass Index - - documented in this encounter Progress Notes * Catarino Francis MED ASSIST - 11/07/2023 10:15 AM EDT Stephani Sales presented for blood pressure check per provider orders. The blood pressure was obtained using the left arm in the sitting position using a adult large cuff. The results were charted in Vital Signs. BP Readings from Last 3 Encounters: 10/08/23 108/60 08/31/23 124/80 07/19/23 138/80 Readings: 1) 106/64 Patient denies headache, pressure in head, dizziness, lightheadedness, chest discomfort, focal neurological symptoms, change in vision, nose bleeds. Did patient take medications today? Yes Patient has been taking losartan and amlodipine. Patient was instructed to follow-up as per their next scheduled appt documented in this encounter Plan of Treatment Upcoming Encounters Date Type Department Care Team (Late st Contact Info) Description 11/29/2023 3:00 PM EDT Telemedicine Psychiatry Bernardo Brito [address] [place] [phone] Xiomara Bishop MD [address] [facility] [place] [address] 03/03/2024 10:40 AM EDT Office Visit Family Practice [facility] [address] [facility] [place] [address] Any Gutierrez MD [address] [facility] [place] [address] Scheduled Orders Name Type Priority Associated Diagnoses Orde r Schedule BLOOD PRESSURE Procedures Routine HTN, goal below 140/90 Ordered: 11/07/2023 Health Maintenance Due Date Last Done Comments Pneumococcal Vaccine: Pediatrics (0 to 5 Years) and At-Risk Patients (6 to 64 Years) (1 of 2 - PCV) 12/12/1967 HIV Screening 1976 Diabetic Eye Exam 12/12/1979 Diabetic Foot Exam 12/12/1979 Hepatitis C Screening 12/12/1979 Cologuard 2006 Colonoscopy 2006 Colorectal Cancer Screening 2006 Fecal Occult Blood Test 2006 Sigmoidoscopy 2006 Zoster Vaccines (1 of 2) 12/12/2011 COVID-19 Vaccine (1 - 2022-2 4 season) 2023 Influenza Vaccine (FLU shot) (#1) 2024 HbA1c 01/19/2024 07/19/2023 GFR 07/18/2024 07/19/2023 Mammogram 07/24/2024 07/25/2023, 07/25/2023 Albumin/Creatinine Ratio 08/01/2024 08/02/2023 DTaP,Tdap,and Td Vaccines (1 - Tdap) 10/07/2024 Postponed from 12/11 (Patient Declined After Education) Lipid Panel 07/18/2028 07/19/2023 HPV (Gardasil) Vaccine Aged Out No lo nger eligible based on patient's age to complete this topic Hepatitis B Vaccine Aged Out No longe r eligible based on patient's age to complete this topic MENINGOCOCCAL (MENACTRA/MENVEO) Aged Out No longer eligible b ased on patient's age to complete this topic documented as of this encounter Medical Devices Not on filedocumented as of this encounter Visit Diagnoses Diagnosis HTN, goal below 140/90- Primary Unspecified essential hypertension documented in this encounter Care Teams Health Record Technician Relationship Specialty Start Date End Date Any Gutierrez MD [address] [place] [address] PCP - General Family Medicine 07/19/23 documented as of this encounter
--- OUTSIDE RECORDS SUMMARY | 2023-11-22 10:26 | External Medical Summary | Summary of Care ---
Author Name Unknown Organization [facility] Address [address] [place] [address] Phone [phone] Care Team Providers Care Associate Professor Of Anthropology Name Role Phone Any Gutierrez MD Primary Care Provider [phone] Reason for Referral * Precert (Within 10 days (routine)) - Pending Review Specialty Diagnoses / Procedures Referred By Contac t Referred To Contact Sleep Disorders Diagnoses CJ (obstructive sleep apnea) Procedures SLEEP STUDY, W/O CPAP Emely Rankin MD [address] [place] [id number] Referral ID Status Reason Start Date Expiration Date V isits Requested Visits Authorized [id number] Pending Review 10/30/2023 [id number] Reason for Visit * Reason Onset Date Comments Advice 10/30/2023 Encounter Details Date Type Department Care Team (Late st Contact Info) Description 10/30/2023 Telephone Sleep Lab, [address] [place] [address] Emely Rankin MD [address] [place] [id number] Advice Allergies Active Allergy Reactions Criticality Noted Date Comments Sulfamethoxazole-Trimethoprim Anaphylaxis High 07/18 Latex Hives 07/19/2023 documented as of this encounter (statuses as of 10/30/2023) Medications Medication Sig Dispensed Refills Start Date [...] as of this encounter (statuses as of 10/30/2023) Active Problems Problem Noted Date Diagnosed Date Food insecurity 08/13/2023 Overview: Per [facility] Protocol Hypertension goal BP (blood pressure) < 140/90 0 07/19/2023 Type 2 diabetes mellitus wit h hemoglobin A1c goal of less than 7.0% 07/19/2023 Bipolar 1 disorder 07/19/2023 S/P gastric sleeve procedure 07/19/2023 CJ on CPAP 07/19/2023 documented as of this encounter (statuses as of 10/30/2023) Social History Tobacco Use Types Packs/Day Years [...] No 08/01/2023 Does the household have a [facility] psychiatric [facility] source of income? (Household - for ages [...] on file documented as of this encounter Miscellaneous Notes * Addendum Note - Emely Rankin MD - 10/30/2023 3:40 PM EDTAddended by: EMELY RANKIN on: 10/30/2023 03:40 PM Modules accepted: Orders * Telephone Encounter - Monica Chowdhury, [facility] - 10/30/2023 1:00 PM EDT The patient is calling in asking for an order to get supplies so she may start using her CPAP again. She is having heart palpitations and her blood pressure is increasing again. She had a Watchpat study 08/31/2023 which revealed a 4% pAHI of 2.0 and 3% pAHI of 7.1. She has [facility] [place] insurance. I explained that her study was negative at the CMS guidelines of 4% but I suggested I message you to have an in lab study done. She was agreeable to that but [facility] as she doesn't have a ride to come to [place]. documented in this encounter Plan of Treatment Upcoming Encounters Date Type Department Care Team (Late st Contact Info) Description 11/07/2023 10:30 AM EDT Nurse Only Ancillary [facility] [place] [address] [facility] [place] [id number] [place], Nurse Fam Prac [facility] [address] [facility] [place] [address] 11/29/2023 3:00 PM EDT Telemedicine Psychiatry Tiffanie [place] [address] [place] [address] Xiomara Bishop MD [address] [place] [address] 03/03/2024 10:40 AM EDT Office Visit Family Practice [facility] [place] [address] [place] [address] Any Gutierrez MD [address] [facility] [place] [address] Scheduled Orders Name Type Priority Associated Diagnoses Orde r Schedule SLEEP STUDY, W/O CPAP Procedures Routine CJ (obstructive sleep apnea) Ordered: 10/30/2023 Health Maintenance Due Date Last Done Comments [...] 4 season) 2023 Influenza Vaccine (FLU shot) (Season Ended) 2024 HbA1c 01/19/2024 07/19/2023 GFR 07/18/2024 07/19/2023 Mammogram 07/24/2024 07/25/2023, 07/25/2023 Albumin/Creatinine Ratio 08/01/2024 08/02/2023 DTaP,Tdap,and Td Vaccines (1 - Tdap) 10/07/2024 Postponed from 12/11 (Patient Declined After Education) Lipid Panel 07/18/2028 07/19/2023 GARDASIL-HPV IMMUNIZATION SERIES Aged Out No longer eligible b ased on patient's age to complete this topic Hepatitis B Aged Out No longer eligi ble based on patient's age to complete this topic MENINGOCOCCAL (MENACTRA/MENVEO) Aged Out No longer eligible b ased on patient's age to complete this topic documented as of this encounter Medical Devices Not on filedocumented as of this encounter Visit Diagnoses Diagnosis CJ (obstructive sleep apnea)- Primary Obstructive sleep apnea (adult) (pediatric) documented in this encounter Care Teams Associate Professor Of Anthropology Relationship Specialty Start Date End Date Any Gutierrez MD [address] [place] [address] PCP - General Family Medicine 07/19/23 documented as of this encounter
--- OUTSIDE RECORDS SUMMARY | 2023-11-22 10:26 | External Medical Summary | Summary of Care ---
Author Name Unknown Organization [facility] Address [address] [place] [address] Phone [phone] Care Team Providers Care County Demonstrator Name Role Phone Any Gutierrez MD Primary Care Provider [phone] Reason for Visit * Reason Onset Date Comments Test Results 09/04/2023 Encounter Details Date Type Department Care Team (Late st Contact Info) Description 09/04/2023 Telephone Sleep Lab, [facility] [address], [place] [id number] Caitlin Quintana MD [address] [place], [place] [id number] Test Results Allergies Active Allergy Reactions Criticality Noted Date Comments Sulfamethoxazole-Trimethoprim Anaphylaxis High 07/18 Latex Hives 07/19/2023 documented as of this encounter (statuses as of 09/04/2023) Medications Medication Sig Dispensed Refills Start Date End Date Status amLODIPine Besylate 5 MG Oral Tablet (Norvasc) Take 2 Tablets by mouth in the morning. 0 Active Losartan Potassium 100 MG Oral Tablet (Cozaar) Take 1 Tablet by mouth in the morning. 0 Active Cariprazine HCl 1.5 MG Oral Capsule (Vraylar) Take 1 Capsule by mouth in the morning. 30 Capsule 0 08/29/2023 Active traZODone HCl 50 MG Oral Tablet (Desyrel) Take 1 Tablet by mouth at bedtime. 30 Tablet 0 08/29/2023 Active clonazePAM 0.5 MG Oral Tablet (KlonoPIN) Take 1 Tablet by mouth in the morning and 1 Tablet at noon and 1 Tablet before bedtime. 90 Tablet 0 08/29/2023 Active Lurasidone HCl 60 MG Oral Tablet (Latuda) Take 1 Tablet by mouth in the morning. 0 08/01/2023 Active documented as of this encounter (statuses as of 09/04/2023) Active Problems Problem Noted Date Diagnosed Date Food insecurity 08/13/2023 Overview: Per [facility] Protocol Hypertension goal BP (blood pressure) < 140/90 0 07/19/2023 Type 2 diabetes mellitus wit h hemoglobin A1c goal of less than 7.0% 07/19/2023 Bipolar 1 disorder 07/19/2023 S/P gastric sleeve procedure 07/19/2023 CJ on CPAP 07/19/2023 documented as of this encounter (statuses as of 09/04/2023) Social History Tobacco Use Types Packs/Day Years [...] have money to get more. Never true Sex and Gender Information Value Date Recorded Sex Assigned at Female 08/01/2023 8:18 AM EDT Gender Identity Female 08/01/2023 8:18 AM EDT Sexual Orientation Straight 08/01/2023 8: 18 AM EDT Job Start Date Occupation Industry Not on file Not on file Not on file documented as of this encounter Miscellaneous Notes * Telephone Encounter - Monica Chowdhury RPSGT - 09/04/2023 1:33 PM EDT The patient returned my call to discuss her home sleep study results and treatment options, if needed. The patient voiced understanding of the results and treatment options. All questions were answered. The patient chose to do nothing more at this time. documented in this encounter Plan of Treatment Upcoming Encounters Date Type Department Care Team (Late st Contact Info) Description 09/19/2023 2:30 PM EDT Telemedicine Psychiatry, [facility] [address] [place] [address] Xiomara Bishop MD [address] [facility] [place] [address] 03/03/2024 10:40 AM EDT Office Visit Family [facility] [address] [facility] [place] [address] Any Gutierrez MD [address] [facility] [place] [address] Health Maintenance Due Date Last Done Comments Pneumococcal Vaccine: Pediat rics (0 to 5 Years) and At-Risk Patients (6 to 64 Years) (1 of 2 - PCV) 12/12/1967 HIV Screening 1976 Diabetic Eye Exam 12/12/1979 Diabetic Foot Exam 12/12/1979 Hepatitis C Screening 12/12/1979 DTaP,Tdap,and Td Vaccines (1 - Tdap) 1980 Cologuard 2006 Colonoscopy 2006 Colorectal Cancer Screening 2006 Fecal Occult Blood Test 2006 Sigmoidoscopy 2006 Zoster Vaccines (1 of 2) 12/12/2011 COVID-19 Vaccine (2022-2 4 season) 2023 *BASELINE EKG FOR HTN 07/23/2023 Influenza Vaccine (FLU shot) (Season Ended) 2024 HbA1c 01/19/2024 07/19/2023 GFR 07/18/2024 07/19/2023 Mammogram 07/24/2024 07/25/2023 Albumin/Creatinine Ratio 08/01/2024 08/02/2023 Lipid Panel 07/18/2028 07/19/2023 GARDASIL-HPV IMMUNIZATION SERIES Aged Out No longer eligible based on patient's age to complete this topic Hepatitis B Aged Out No longer eligi ble based on patient's age to complete this topic MENINGOCOCCAL (MENACTRA/MENVEO) Aged Out No longer eligible based on patient's age to complete this topic documented as of this encounter Medical Devices Not on filedocumented as of this encounter Care Teams County Demonstrator Relationship Specialty Start Date End Date Any Gutierrez MD [address] [place] [address] PCP - General Family Medicine 07/19/23 documented as of this encounter
--- OUTSIDE RECORDS SUMMARY | 2023-11-22 10:26 | External Medical Summary | Summary of Care ---
Author Name Unknown Organization [facility] Address [address] [place] [address] Phone [phone] Care Team Providers Care Oxyacetylene Burner Name Role Phone Any Gutierrez MD Primary Care Provider [phone] Reason for Visit * Reason Comments Sleep Problems Encounter Details Date Type Department Care Team (Latest Contact Info) Description 08/27/2023 2:00 PM EDT [facility] [address] [facility] [address] [place] [address] Sleep apnea, unspecified type* Allergies Active Allergy Reactions Criticality Noted Date Comments Sulfamethoxazole-Trimethoprim Anaphylaxis High 07/18 Latex Hives 07/19/2023 documented as of this encounter (statuses as of 09/01/2023) Medications Medication Sig Dispensed Refills Start Date End Date Status amLODIPine Besylate 5 MG Oral Tablet (Norvasc) Take 2 Tablets by mouth in the morning. 0 Active Losartan Potassium 100 MG Oral Tablet (Cozaar) Take 1 Tablet by mouth in the morning. 0 Active documented as of this encounter (statuses as of 09/01/2023) Active Problems Problem Noted Date Diagnosed Date Food insecurity 08/13/2023 Overview: Per [facility] Protocol Hypertension goal BP (blood pressure) < 140/90 0 07/19/2023 Type 2 diabetes mellitus wit h hemoglobin A1c goal of less than 7.0% 07/19/2023 Bipolar 1 disorder 07/19/2023 S/P gastric sleeve procedure 07/19/2023 CJ on CPAP 07/19/2023 documented as of this encounter (statuses as of 09/01/2023) Social History Tobacco Use Types Packs/Day Years [...] on file documented as of this encounter Progress Notes * Caitlin Quintana MD - 09/01/2023 11:40 PM EDT Images from the original note were not included. documented in this encounter Plan of Treatment Upcoming Encounters Date Type Department Care Team (Late st Contact Info) Description 09/19/2023 2:30 PM EDT [facility] [address] [place] [address] Xiomara Bishop MD [address] [place] [address] 03/03/2024 10:40 AM EDT Office Visit Family Practice [facility] [address] [place] [address] Any Gutierrez MD [address] [place] [address] Health Maintenance Due Date Last Done Comments [...] Vaccine (1 - 2022-2 4 season) 2023 *BASELINE EKG FOR HTN [...] as of this encounter Visit Diagnoses Diagnosis Sleep apnea, unspecified type- Primary documented in this encounter Care Teams Oxyacetylene Burner Relationship Specialty Start Date End Date Any Gutierrez MD [address] [place] [address] PCP - General Family Medicine 07/19/23 documented as of this encounter
--- OUTSIDE RECORDS SUMMARY | 2023-11-22 10:26 | External Medical Summary | Summary of Care ---
Author Name Unknown Organization [facility] Address [address] [place] [address] Phone [phone] Care Team Providers Care Account Support Specialist Name Role Phone Any Gutierrez MD Primary Care Provider [phone] Reason for Visit * Reason Comments Medication Management * - Authorized Specialty Diagnoses / Procedures Referred By Contac t Referred To Contact Referral ID Status Reason Start Date Expiration Date V isits Requested Visits Authorized [id number] Authorized 07/06/2023 07/04/[phone] Encounter Details Date Type Department Care Team (Late st Contact Info) Description 10/17/2023 2:30 PM EDT Telemedicine Psychiatry [facility] [address] [place] [address] Xiomara Bishop MD [address] [place] [address] Bipolar depression (HCC)*; EPI (generalized anxiety disorder) Allergies Active Allergy Reactions Criticality Noted Date Comments Sulfamethoxazole-Trimethoprim Anaphylaxis High 07/18 Latex Hives 07/19/2023 documented as of this encounter (statuses as of 10/17/2023) Medications Medication Sig Dispensed Refills Start Date [...] the morning. 30 Capsule 1 10/17/2023 Active clonazePAM 0.5 MG Oral Tablet (KlonoPIN) Take 1 Tablet by mouth in the morning and 1 Tablet at noon and 1 Tablet before bedtime. 90 Tablet 09/19/2023 10/17/2023 Discontinued (Refill) Cariprazine HCl 1.5 MG Oral Capsule (Vraylar) Take 1 Capsule by mouth in the morning. 30 Capsule 09/19/2023 10/17/2023 Discontinued (Refill) traZODone HCl 50 MG Oral Tablet (Desyrel) Take 1 Tablet by mouth at bedtime. 30 Tablet 09/19/2023 10/17/2023 Discontinued (Refill) documented as of this encounter (statuses as of 10/17/2023) Active Problems Problem Noted Date Diagnosed Date Food insecurity 08/13/2023 Overview: Per [facility] Protocol Hypertension goal BP (blood pressure) < 140/90 0 07/19/2023 Type 2 diabetes mellitus wit h hemoglobin A1c goal of less than 7.0% 07/19/2023 Bipolar 1 disorder 07/19/2023 S/P gastric sleeve procedure 07/19/2023 CJ on CPAP 07/19/2023 documented as of this encounter (statuses as of 10/17/2023) Social History Tobacco Use Types Packs/Day Years [...] as of this encounter Progress Notes * Xiomara Bishop MD - 10/17/2023 2:56 PM EDT OUTPATIENT PSYCHIATRY RETURN VISIT DIVISION OF PSYCHIATRY [address] [address] Name: Stephani Sales : 1960 Date and Time Patient was Seen: 10/17/2023 at 2.30 pm Patient location: HOME. I was not in a hospital or clinic location. After connecting through [employer], patient was verified with two unique identifiers. Patient (or authorized legal associate sales representative) was then informed that this was a Telemedicine visit and being conducted confidentially over secure lines. Methods to assure confidentiality were taken. Patient acknowledged consent and understanding of privacy and security of the Telemedicine visit. The patient agreed to participate. Physical Location of patient: Home CC: " I have been okay " INTERVAL HISTORY: Patient is a 62 year old female with H/O Bipolar depression, EPI presenting with symptoms of Depression and anxiety. Patient seen in follow up. Patient reports feeling better compared to before and has some periods of depression. Vraylar increased to 3 mg po daily. Pt able to sleep well with Trazodone and Klonopin.. 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 Has multiple pets. Patient denies psychotic symptoms such as Auditory and visual hallucinations , Paranoia or other Delusions. Patient denies Suicidal ideation intent or plan. Denies recurrent thoughts of . DeniesSIB thoughts/actions. No HI thoughts Medical ROS and Side effects of Medications: Constitutional: (-) otherwise negative Eyes: (-) otherwise negative Cardiovascular: (-) otherwise negative Pulmonary: (-) otherwise negative Abdominal/GI: (-) otherwise negative Musculoskeletal: (-) otherwise negative Endocrine: (-) otherwise negative Skin: (-) otherwise negative Neurology: negative CURRENT MEDICATIONS: Current Outpatient Medications Medication Sig Dispense Refill Losartan Potassium 100 MG Oral Tablet (Cozaar) Take 1 Tablet by mouth in the morning. clonazePAM 0.5 MG Oral Tablet (KlonoPIN) Take 1 Tablet by mouth in the morning and 1 Tablet at noonand 1 Tablet before bedtime. 90 Tablet 0 Cariprazine HCl 1.5 MG Oral Capsule (Vraylar) Take 1 Capsule by mouth in the morning. 30 Capsule 0 traZODone HCl 50 MG Oral Tablet (Desyrel) Take 1 Tablet by mouth at bedtime. 30 Tablet 0 No current facility-administered medications for this visit. VITALS There were no vitals filed for this visit. Wt Readings from Last 3 Encounters: 10/08/23 92.1 kg (203 lb 1.9 oz) 08/31/23 93.4 kg (205 lb 12.8 oz) 07/19/23 93.9 kg (207 lb 0.6 oz) There is no height or weight on file to calculate BMI. [place] Suicide Severity Rating Scale Results 10/17/2023 15:31 [place] SUICIDE SEVERITY RATING SCALE (C-SSRS) Have you wished you were or wished you could go to sleep and not wake up? (In the Past Month or Since Last Visit) No Have you had any actual thoughts of killing yourself? (In the Past Month or Since Last Visit) No Have you been thinking about how you might do this? (In the Past Month or Since Last Visit) No Have you had thoughts and had some intention of acting on them? (In the Past Month or Since Last Visit) No Have you started to work out or worked out the details of how to kill yourself? Do you intend to carry out this plan? (In the Past Month or Since Last Visit) No Have you ever done anything, started to do anything, or prepared to do anything to end your life? (Lifetime) Yes Was this within the past 3 months? No Level of Risk Moderate Protective Factors Future Plans;Hopeful attitude and or beliefs;Identifies reasons for living;Caresabout job/school;Help-Seeking Behaviors Risk Factors History of Depression;Anxiety;Previous suicide attempts MENTAL STATUS EVALUATION: Appearance: age-appropriate and casually dressed General: No acute distress Skin: no cuts or lesions on exposed skin surface Muscle strength and tone: no abnormal involuntary movements noticeable Gait and Station: not assessed, patient seen via teleconference Behavior: cooperative Speech: Normal in tone and rate Mood: "I am ok" Affect: type - Euthymic; range - constricted; lability - no Associations: intact Thought Process: goal directed Abstract Reasoning: not tested Thought Content: denies suicidal ideations, homicidal ideations, auditory hallucinations, visual hallucinations, delusions, impulsivity to act out or preoccupation with violence Orientation: alert and oriented to person, place, time and situation Attention span/concentration as evidenced by: ability to sustain attention to examiner - intact Insight: fair Judgment: fair ASSESSMENT AND PLAN: Bipolar 1 depression PTSD Plan: Medications: I have reviewed the patients controlled substance dispensing history in the Prescription Drug Monitoring Program in compliance with the [facility] regulations before prescribing a controlled substance. Last Tox Screen Results: No results found for this or any previous visit. Vraylar increased to 3 mg po daily for mood stabilization, Trazodone 50 mg at bedtime for sleep andKlonopin 0.5 mg po tid. 2. Therapy: Approximately 17 minutes was spent in psychotherapy, primarily supportive therapy with patient including addressing side effects of medication, psycho education about diagnosis. Using CBTto identify cognitive distortions and ways to modify those. 3. Labs: Patient agreed to get blood work done. Labs reviewed on chart. 4. Safety Plan : Was completed at the time of initial visit 5. Psychoeducation: Treatment options and alternatives reviewed with patient who agrees with the above plan. Information about current medications was provided to the patient including reasons why medications are being used. Patient understood the risks, benefits, side-effects, and potential complications associated with changes in medications being proposed (both medications being started, and medications being discontinued or having dose changed). Patient is making an informed medical decision to follow the recommendations outlined in this note. Directed pt to call with any questions or concerns, worsening symptoms and/or ask for earlier appointment. Greater than 50% of the time was spent counseling or coordinating the care of the patient Risk assessment was performed. This is a patient being treated for chronic mental health conditionsand/or substance use disorder as characterized above; at the time of this visit, there was no indication that this patient was either a risk to self, others, or gravely disabled by symptoms of a mental illness or substance use disorder. At the time of this evaluation, pt did not appear to be an acute risk to self or others, there were enough protective factors in place, and it was deemed safe andappropriate to continue with treatment on an outpatient basis with return to clinic in the timeframe described above. We reviewed previous crisis plan should he/she experience worsening of symptoms before next follow-up appointment, including being aware of what resources to use according to the urgency and severityof symptoms. Stephani Sales was able to verbalize understanding of the steps necessary to obtain help between appointments should be needed, from requesting a phone call, to requesting an appointment sooner, including reaching clinic after hours, accessing our system, and accessing emergency mental health and medical services, either at a local emergency department or by activating mobile crisis teams and EMS. Time Spent on Visit: 30 minutes Please note 17 minutes of counseling time over and above medication management was spent on management of mood/anxiety and current life stressors Billing code: 90077 RTC in 4 weeks Xiomara Bishop MD Psychiatry, [place] [address] [facility] [address] documented in this encounter Plan of Treatment Upcoming Encounters Date Type Department Care Team (Late st Contact Info) Description 11/07/2023 10:30 AM EDT Nurse Only Ancillary [facility] [address] [place] [address] [place], Nurse Fam [address] [place] [address] 11/29/2023 3:00 PM EDT Telemedicine Psychiatry [facility] [address] [place] [id number] Xiomara Bishop MD [address] [place] [address] 03/03/2024 10:40 AM EDT Office Visit Family Practice [facility] [place] [address] [facility] [place] [address] Any Gutierrez MD [address] [place] [address] [place] [address] Health Maintenance Due Date Last Done Comments [...] as of this encounter Visit Diagnoses Diagnosis Bipolar depression (HCC)- Primary Bipolar I disorder, most recent episode (or current) depressed, unspecified EPI (generalized anxiety disorder) Generalized anxiety disorder documented in this encounter Care Teams Account Support Specialist Relationship Specialty Start Date End Date Any Gutierrez MD [address] [place] [address] PCP - General Family Medicine 07/19/23 documented as of this encounter
--- OUTSIDE RECORDS SUMMARY | 2023-11-22 10:26 | External Medical Summary | Summary of Care ---
Author Name Unknown Organization [facility] Address [address] [place] [address] Phone [phone] Care Team Providers Care Tile Presser Name Role Phone Any Gutierrez MD Primary Care Provider [phone] Reason for Visit * Reason Comments Medication Management Encounter Details Date Type Department Care Team (Late st Contact Info) Description 10/08/2023 12:40 PM EDT Office Visit Family Practice [facility] [address] [place] [address] Any Gutierrez MD [address] [place] [address] Hypertension goal BP (blood pressure) < 140/90*; Type 2 diabetes mellitus with hemoglobin A1c goal of less than 7.0% ([facility]); Bipolar 1 disorder ([facility]) Allergies Active Allergy Reactions Criticality Noted Date Comments Sulfamethoxazole-Trimethoprim Anaphylaxis High 07/18 Latex Hives 07/19/2023 documented as of this encounter (statuses as of 10/08/2023) Medications Medication Sig Dispensed Refills Start Date End Date Status Losartan Potassium 100 MG Oral Tablet (Cozaar) Take 1 Tablet by mouth in the morning. Active clonazePAM 0.5 MG Oral Tablet (KlonoPIN) Take 1 Tablet by mouth in the morning and 1 Tablet at noon and 1 Tablet before bedtime. 90 Tablet 09/19/2023 Active Cariprazine HCl 1.5 MG Oral Capsule (Vraylar) Take 1 Capsule by mouth in the morning. 30 Capsule 09/19/2023 Active traZODone HCl 50 MG Oral Tablet (Desyrel) Take 1 Tablet by mouth at bedtime. 30 Tablet 09/19/2023 Active amLODIPine Besylate 5 MG Oral Tablet (Norvasc) Take 2 Tablets by mouth in the morning. 10/08/2023 Discontinued documented as of this encounter (statuses as of 10/08/2023) Active Problems Problem Noted Date Diagnosed Date Food insecurity 08/13/2023 Overview: Per [facility] Protocol Hypertension goal BP (blood pressure) < 140/90 0 07/19/2023 Type 2 diabetes mellitus wit h hemoglobin A1c goal of less than 7.0% 07/19/2023 Bipolar 1 disorder 07/19/2023 S/P gastric sleeve procedure 07/19/2023 CJ on CPAP 07/19/2023 documented as of this encounter (statuses as of 10/08/2023) Social History Tobacco Use Types Packs/Day Years [...] Sign Reading Time Taken Comments Blood Pressure 108/60 10/08/2023 12:53 PM EDT Pulse 79 10/08/2023 12:53 PM EDT Temperature 36.2 C (97.1 F) 10/08/2023 12:53 PM E DT Respiratory Rate 16 10/08/2023 12:53 PM EDT Oxygen Saturation 98% 10/08/2023 12:53 PM EDT Inhaled Oxygen Concentration - - Weight 92.1 kg (203 lb 1.9 oz) 10/08/2023 12:53 PM EDT Height - - Body Mass Index 32.78 07/19/2023 1:09 PM EDT documented in this encounter Progress Notes * Any Gutierrez MD - 10/08/2023 1:08 PM EDT Subjective Chief Complaint Patient presents with Medication Management HPI: Stephani Sales is a 62 year old female. Patient is unaccompanied. The following issues were addressed today: Patient presents today to discuss blood pressure medication. She is s/p gastric bypass and has lostweight, now stable around 205lb. Body mass index is 32.78 kg/m. She reports she was retested for sleep apnea and told she no longer needs a CPAP. Has also noticed her blood pressure has been running lower. Takes it at home using a wrist cuff and is consistently <120/70. Feeling tired and not sure if it is from low blood pressures or new psych medications. She is following with psych for bipolar disorder and currently on Vraylar, Klonopin, and trazodone. For blood pressure, takes losartan 100mg and amlodipine 10mg daily. Review of Systems: See HPI Objective BP 108/60 | Pulse 79 | Temp 36.2 C (97.1 F) (Tympanic) | Resp 16 | Wt 92.1 kg (203 lb 1.9 oz) |SpO2 98% | BMI 32.78 kg/m | BSA 2.07 m Wt Readings from Last 3 Encounters: 10/08/23 92.1 kg (203 lb 1.9 oz) 08/31/23 93.4 kg (205 lb 12.8 oz) 07/19/23 93.9 kg (207 lb 0.6 oz) BP Readings from Last 3 Encounters: 10/08/23 108/60 08/31/23 124/80 07/19/23 138/80 General: Well-appearing, no acute distress Psychiatric: Appropriate mood and affect Hemoglobin AIC Results: Lab Results Component Value Date/Time HEMOGLOBIN A1C - LORYER 5.5 07/19/2023 02:39 PM Assessment & Plan 1. Hypertension goal BP (blood pressure) < 140/90 Reviewed home readings. Blood pressure here today is 108/60. Will stop amlodipine. Continue losartan for now. Return in 4 weeks for blood pressure recheck and if remains low can consider decreasing losartan dose. 2. Type 2 diabetes mellitus with hemoglobin A1c goal of less than 7.0% (HCC) Well-controlled with diet. 3. Bipolar 1 disorder (HCC) Continue current medications. Follow-up with psychiatry as scheduled. Return in about 4 weeks (around 11/05/2023) for nursing visit for BP check. This note was electronically signed by Any Gutierrez MD documented in this encounter Nursing Notes * Deborah Lee LPN - 10/08/2023 12:55 PM EDT Patient presents in office today wanting to discuss medications. Has been on BP medication for several years and has lost a lot of weight. Wondering if dose can be lowered. documented in this encounter Plan of Treatment Upcoming Encounters Date Type Department Care Team (Late st Contact Info) Description 10/17/2023 2:30 PM EDT Telemedicine Psychiatry [facility] [address] [place] [address] Xiomara Bishop MD [address] [place] [address] 11/07/2023 10:30 AM EDT Nurse Only [facility] [place] [address] [facility] [place] [address] Lexie Nurse Fam [facility] [address] [place] [address] 03/03/2024 10:40 AM EDT [facility] [address] [facility] [place] [address] Any Gutierrez MD [address] [facility] [place] [address] Health Maintenance Due Date Last Done Comments [...] Mammogram 07/24/2024 07/25/2023 Albumin/Creatinine Ratio 08/01/2024 08/02/2023 DTaP,Tdap,and Td [...] as of this encounter Visit Diagnoses Diagnosis Hypertension goal BP (blood pressure) < 140/90- Primary Unspecified essential hypertension Type 2 diabetes mellitus with hemoglobin A1c goal of less than 7.0% (HCC) Bipolar 1 disorder (HCC) Bipolar I disorder, most recent episode (or current) unspecified documented in this encounter Care Teams Tile Presser Relationship Specialty Start Date End Date Any Gutierrez MD [address] [place] [address] PCP - General Family Medicine 07/19/23 documented as of this encounter"
--- OUTSIDE RECORDS SUMMARY | 2023-11-22 10:26 | External Medical Summary | Summary of Care ---
Author Name Unknown Organization [facility] Address [address] [place] [address] Phone [phone] Care Team Providers Care Medical Technician Assistant Name Role Phone Any Gutierrez MD Primary Care Provider [phone] Reason for Visit * Reason Comments Medication Management * - Authorized Specialty Diagnoses / Procedures Referred By Viry t Referred To Contact Referral ID Status Reason Start Date Expiration Date V isits Requested Visits Authorized [id number] Authorized 07/06/2023 07/04/2024 [id number] Encounter Details Date Type Department Care Team (Late st Contact Info) Description 09/19/2023 2:30 PM EDT [facility] [address], [place] [phone] Xiomara Bishop MD [address] [place], [place] [phone] Bipolar 1 disorder (HCC)*; EPI (generalized anxiety disorder) Allergies Active Allergy Reactions Criticality Noted Date Comments Sulfamethoxazole-Trimethoprim Anaphylaxis High 07/18 Latex Hives 07/19/2023 documented as of this encounter (statuses as of 09/19/2023) Medications Medication Sig Dispensed Refills Start Date End Date Status amLODIPine Besylate 5 MG Oral Tablet (Norvasc) Take 2 Tablets by mouth in the morning. 0 Active Losartan Potassium 100 MG Oral Tablet (Cozaar) Take 1 Tablet by mouth in the morning. 0 Active clonazePAM 0.5 MG Oral Tablet (KlonoPIN) Take 1 Tablet by mouth in the morning and 1 Tablet at noon and 1 Tablet before bedtime. 90 Tablet 0 09/19/2023 Active Cariprazine HCl 1.5 MG Oral Capsule (Vraylar) Take 1 Capsule by mouth in the morning. 30 Capsule 0 09/19/2023 Active traZODone HCl 50 MG Oral Tablet (Desyrel) Take 1 Tablet by mouth at bedtime. 30 Tablet 0 09/19/2023 Active Cariprazine HCl 1.5 MG Oral Capsule (Vraylar) Take 1 Capsule by mouth in the morning. 30 Capsule 0 08/29/2023 09/19/2023 Discontinued (Refill) traZODone HCl 50 MG Oral Tablet (Desyrel) Take 1 Tablet by mouth at bedtime. 30 Tablet 0 08/29/2023 09/19/2023 Discontinued (Refill) Lurasidone HCl 60 MG Oral Tablet (Latuda) Take 1 Tablet by mouth in the morning. 0 08/01/2023 09/19/2023 Discontinued (Medication/ Dose Changed) clonazePAM 0.5 MG Oral Tablet (KlonoPIN) Take 1 Tablet by mouth in the morning and 1 Tablet at noon and 1 Tablet before bedtime. 90 Tablet 0 09/05/2023 09/19/2023 Discontinued (Refill) documented as of this encounter (statuses as of 09/19/2023) Active Problems Problem Noted Date Diagnosed Date Food insecurity 08/13/2023 Overview: Per [facility] Protocol Hypertension goal BP (blood pressure) < 140/90 0 07/19/2023 Type 2 diabetes mellitus wit h hemoglobin A1c goal of less than 7.0% 07/19/2023 Bipolar 1 disorder 07/19/2023 S/P gastric sleeve procedure 07/19/2023 CJ on CPAP 07/19/2023 documented as of this encounter (statuses as of 09/19/2023) Social History Tobacco Use Types Packs/Day Years [...] Progress Notes * Xiomara Bishop MD - 09/19/2023 2:41 PM EDT OUTPATIENT PSYCHIATRY RETURN VISIT DIVISION OF PSYCHIATRY [address] [address] Name: Stephani Sales : 1960 Date and Time Patient was Seen: 09/19/2023 at 2.30 pm Patient location: HOME. I was not in a hospital or clinic location. After connecting through [employer], patient was verified with two unique identifiers. Patient (or authorized legal quality assurance representative) was then informed that this was a Telemedicine visit and being conducted confidentially over secure lines. Methods to assure confidentiality were taken. Patient acknowledged consent and understanding of privacy and security of the Telemedicine visit. The patient agreed to participate. Time Spent on Visit: 30 minutes - including preparing to see the patient, reviewing history, performing evaluation, counseling/educating patient, ordering medications/tests, documenting clinical information. Physical Location of patient: Home CC: " I have been okay " INTERVAL HISTORY: Patient is a 62 year old female with H/O Bipolar depression, EPI presenting with symptoms of Depression and anxiety. Patient seen in follow up. Patient reports feeling better compared to before. Has been doing more art and being productive and enjoying her art projects. Does have episodes of sadness but it has comedown. Pt able to sleep well on Trazodone but wakes up at 3 am. She states she feels more creative at that time and starts doing art projects. Goes to bed early though. Pt wants to own or rent a building so she can do art exhibitions more frequently. Has multiple pets. Will give 4 more weeks on Vraylar 1.5 mg po daily for mood stabilization. Will continue Trazodone 50 mg at bedtime for sleep and Klonopin 0.5 mg po tid. Patient denies psychotic symptoms such as Auditory [...] Current Outpatient Medications Medication Sig Dispense Refill amLODIPine Besylate 5 MG Oral Tablet (Norvasc) Take 2 Tablets by mouth in the morning. Losartan Potassium 100 MG Oral Tablet (Cozaar) Take 1 Tablet by mouth in the morning. Cariprazine HCl 1.5 MG Oral Capsule (Vraylar) Take 1 Capsule by mouth in the morning. 30 Capsule 0 traZODone HCl 50 MG Oral Tablet (Desyrel) Take 1 Tablet by mouth at bedtime. 30 Tablet 0 Lurasidone HCl 60 MG Oral Tablet (Latuda) Take 1 Tablet by mouth in the morning. clonazePAM 0.5 MG Oral Tablet (KlonoPIN) Take 1 Tablet by mouth in the morning and 1 Tablet at noonand 1 Tablet before bedtime. 90 Tablet 0 No current facility-administered medications for this visit. VITALS There were no vitals filed for this visit. Wt Readings from Last 3 Encounters: 08/31/23 93.4 kg (205 lb 12.8 oz) 07/19/23 93.9 kg (207 lb 0.6 oz) There is no height or weight on file to calculate BMI. [place] Suicide Severity Rating Scale Results 09/19/2023 15:05 [place] SUICIDE SEVERITY RATING SCALE (C-SSRS) Have [...] Speech: Normal in tone and rate Mood: anxious Affect: type - Euthymic; range - constricted; [...] Drug Monitoring Program in compliance with the [facility] regulations before prescribing a controlled substance. Last Tox Screen Results: No results found for this or any previous visit. Vraylar 1.5 mg po daily for mood stabilization, Trazodone 50 mg at bedtime for sleep and Klonopin 0.5 mg po tid. 2. Therapy: Approximately [...] to the urgency and severityof symptoms. Stephani Henrry was able to verbalize understanding of the [...] mood/anxiety and current life stressors Billing code: 74677 and G2211 RTC in 4 weeks Xiomara Bishop MD [facility] [address] [facility] [address] documented in this encounter Plan of Treatment Upcoming Encounters Date Type Department Care Team (Late st Contact Info) Description 10/17/2023 2:30 PM EDT Telemedicine Psychiatry Bernardo Brito [address] [place] [address] Xiomara Bishop MD [address] [place] [address] 03/03/2024 10:40 AM EDT Office Visit Family Practice [facility] [address] [place] [address] Any Gutierrez MD [address] [place] [address] Health Maintenance Due Date Last Done Comments [...] of this encounter Visit Diagnoses Diagnosis Bipolar 1 disorder (HCC)- Primary Bipolar I disorder, most recent episode (or current) unspecified EPI (generalized anxiety disorder) Generalized anxiety disorder documented in this encounter Care Teams Medical Technician Assistant Relationship Specialty Start Date End Date Any Gutierrez MD [address] [place] [address] PCP - General Family Medicine 07/19/23 documented as of this encounter
--- OUTSIDE RECORDS SUMMARY | 2023-11-22 10:26 | External Medical Summary | Summary of Care ---
Author Name Unknown Organization [facility] Address [address] [place] [address] Phone [phone] Care Team Providers Care Culinary Arts Teacher Name Role Phone Any Gutierrez MD Primary Care Provider [phone] Reason for Visit * Reason Comments Sleep Problems Encounter Details Date Type Department Care Team (Latest Contact Info) Description 08/27/2023 2:00 PM EDT [facility] [address] [facility] [address] [facility] [address] [place] [address] Sleep apnea, unspecified type* Allergies Active Allergy [...] Info) Description 09/19/2023 2:30 PM EDT [facility] [address] [place] [address] Xiomara Bishop MD [address] [place] [address] 03/03/2024 10:40 AM EDT Office Visit Family Practice [facility] [address] [place] [address] Any Gutierrez MD [address] [place] [address] Health Maintenance Due Date Last Done Comments [...] Primary documented in this encounter Care Teams Culinary Arts Teacher Relationship Specialty Start Date End Date Any Gutierrez MD [address] [place] [address] PCP - General Family Medicine 07/19/23 documented as of this encounter
--- OUTSIDE RECORDS SUMMARY | 2023-11-22 10:26 | External Medical Summary | Summary of Care ---
Author Name Unknown Organization [facility] Address [address] [place] [address] Phone [phone] Care Team Providers Care Cemetery Manager Name Role Phone Any Gutierrez MD Primary Care Provider [phone] Reason for Visit * Reason Onset Date Comments Advice 10/30/2023 Encounter Details Date Type Department Care Team (Late st Contact Info) Description 10/30/2023 Telephone Sleep Lab, [address] [id number] Caitlin Quintana MD [address] [place] [address] Advice Allergies Active Allergy Reactions Criticality Noted [...] Diagnosed Date Food insecurity 08/13/2023 Overview: Per [facility] Protocol Hypertension goal BP (blood pressure) [...] Miscellaneous Notes * Telephone Encounter - Monica Chowdhury, YANICK - 10/30/2023 1:00 PM EDT The patient is calling in asking for an order to get supplies so she may start using her CPAP again. She is having heart palpitations and her blood pressure is increasing again. She had a [employer] study 08/31/2023 which revealed a 4% pAHI of 2.0 and 3% pAHI of 7.1. She has [facility] [place] insurance. I explained that her study was negative at the CMS guidelines of 4% but I suggested I message you to have an in lab study done. She was agreeable to that but requested to go to [facility] as she doesn't have a ride to come to [place]. documented in this encounter Plan of Treatment Upcoming Encounters Date Type Department Care Team (Late st Contact Info) Description 11/07/2023 10:30 AM EDT Nurse Only Ancillary [facility] [address] [place] [address] Nurse [facility]ie Fam [facility] [address] [address] 11/29/2023 3:00 PM EDT Telemedicine Psychiatry Bern[facility] Brito [address] [address] Xiomara Bishop MD [address] [place] [address] 03/03/2024 10:40 AM EDT Office Visit Family Practice [facility] [address] [facility] [place] [address] Any Gutierrez MD [address] [facility] [place] [address] Health Maintenance Due Date Last Done Comments [...] filedocumented as of this encounter Care Teams Cemetery Manager Relationship Specialty Start Date End Date Any Gutierrez MD [address] [place] [address] PCP - General Family Medicine 07/19/23 documented as of this encounter
--- OUTSIDE RECORDS SUMMARY | 2023-11-22 10:26 | External Medical Summary | Summary of Care ---
Author Name Unknown Organization [facility] Address [address] [place] [address] Phone [phone] Care Team Providers Care Security Operations Manager Name Role Phone Any Gutierrez MD Primary Care Provider [phone] Reason for Visit * Reason Onset Date Comments Other 11/13/2023 Encounter Details Date Type Department Care Team (Late st Contact Info) Description 11/13/2023 Telephone Family Practice [facility] [place] [address] [facility] [place] [address] Any Gutierrez MD [address] [place] [address] Other Allergies Active Allergy Reactions Criticality Noted Date Comments Sulfamethoxazole-Trimethoprim Anaphylaxis High 07/18 Latex Hives 07/19/2023 documented as of this encounter (statuses as of 11/13/2023) Medications Medication Sig Dispensed Refills Start Date [...] as of this encounter (statuses as of 11/13/2023) Active Problems Problem Noted Date Diagnosed Date Food insecurity 08/13/2023 Overview: Per [facility] Protocol Hypertension goal BP (blood pressure) < 140/90 0 07/19/2023 Type 2 diabetes mellitus wit h hemoglobin A1c goal of less than 7.0% 07/19/2023 Bipolar 1 disorder 07/19/2023 S/P gastric sleeve procedure 07/19/2023 CJ on CPAP 07/19/2023 documented as of this encounter (statuses as of 11/13/2023) Social History Tobacco Use Types Packs/Day Years [...] encounter Miscellaneous Notes * Telephone Encounter - Irma Lima CPhT - 11/13/2023 10:31 AM EDT Pt calling in- she was trying to call her insurance plan and called the office line accidentally Thank you, Irma Lima CPhT II Medical Physicist [facility] 11/13/2023, 10:32 AM documented in this encounter Plan of Treatment Upcoming Encounters Date Type Department Care Team (Late st Contact Info) Description 11/29/2023 3:00 PM EDT Telemedicine Psychiatry [facility] Brito [address] [place] [phone] Xiomara Bishop MD [address] [place] [facility] [place] [address] 03/03/2024 10:40 AM EDT [facility] [place] [address] [place] [address] Any Gutierrez MD [address] [place] [address] Health Maintenance Due Date Last Done Comments [...] filedocumented as of this encounter Care Teams Security Operations Manager Relationship Specialty Start Date End Date Any Gutierrez MD [address] [place] [address] PCP - General Family Medicine 07/19/23 documented as of this encounter
--- OUTSIDE RECORDS SUMMARY | 2023-11-22 10:26 | External Medical Summary | Summary of Care ---
Author Name Unknown Organization [facility] Address [address] [place] [address] Phone [phone] Care Team Providers Care Inspector And Clerk Name Role Phone Any Gutierrez MD Primary Care Provider [phone] Reason for Referral * Evaluate & Treat - Unlimited Visits (Within 10 days (routine)) - Pending Review Specialty Diagnoses / Procedures Referred By Contac t Referred To Contact Sleep Medicine / Sleep Disorders Diagnoses History of sleep apnea Any Gutierrez MD [address] [place] [address] Referral ID Status Reason Start Date Expiration Date Visits Requested Visits Authorized [id number] Pending Review Specialty Services Required 11/15/2023 2 2 Question Answer Referral Priority Within 10 days (routine) Where should this appointment be scheduled? External - [facility] Sleep Apnea Testing and Management Does the patient snore and/or gasp at night or has been told they stop breathing at night? Yes, document patient's symptoms in progress note Reason for Visit * Reason Onset Date Comments Referral 11/13/2023 Encounter Details Date Type Department Care Team (Late st Contact Info) Description 11/13/2023 Telephone Family Practice [facility] [address] [place] [address] Any Gutierrez MD [address] [place] [address] Referral Allergies Active Allergy Reactions Criticality Noted Date Comments Sulfamethoxazole-Trimethoprim Anaphylaxis High 07/18 Latex Hives 07/19/2023 documented as of this encounter (statuses as of 11/15/2023) Medications Medication Sig Dispensed Refills Start Date [...] as of this encounter (statuses as of 11/15/2023) Active Problems Problem Noted Date Diagnosed Date Food insecurity 08/13/2023 Overview: Per [facility] Protocol Hypertension goal BP (blood pressure) < 140/90 0 07/19/2023 Type 2 diabetes mellitus wit h hemoglobin A1c goal of less than 7.0% 07/19/2023 Bipolar 1 disorder 07/19/2023 S/P gastric sleeve procedure 07/19/2023 CJ on CPAP 07/19/2023 documented as of this encounter (statuses as of 11/15/2023) Social History Tobacco Use Types Packs/Day Years [...] No 08/01/2023 Does the household have a [facility] source of income? (Household - for ages [...] encounter Miscellaneous Notes * Telephone Encounter - Any Gutierrez MD - 11/15/2023 9:33 AM EDT Per TE on 10/30/23: Suggested to have an in lab study done. She was agreeable to that but requested to go to [facility] as she doesn't have a ride to come to [place]. Ordered referral * Telephone Encounter - Cierra Bermudez OSA - 11/13/2023 11:22 AM EDT Patient calling in states that the sleep study department told her she does not have sleep apnea and is needing a new referral to have another sleep study done that will test her for other sleep disorders. Asking for a call back to discuss what she should do. documented in this encounter Plan of Treatment Upcoming Encounters Date Type Department Care Team (Late st Contact Info) Description 11/15/2023 4:40 PM EDT Office Visit [facility] [address] [place] [address] Any Gutierrez MD 200 [facility] [place] [address] 11/29/2023 3:00 PM EDT Telemedicine Psychiatry [facility] [address] [place] [phone] Xiomara Bishop MD [address] [place] [address] 03/03/2024 10:40 AM EDT Office Visit [facility] [address] [place] [address] Any Gutierrez MD 200 [facility] [place] [address] Scheduled Referrals Name Type Priority Associated Diagnoses Orde r Schedule SLEEP MEDICINE REFERRAL OP Referral Within 10 days (routine) History of sleep apnea Ordered: 11/15/2023 Health Maintenance Due Date Last Done Comments [...] Vaccines (1 of 2) 12/12/2011 COVID-19 Vaccine ( - 2022-2 4 season) 2023 Influenza Vaccine [...] as of this encounter Visit Diagnoses Diagnosis History of sleep apnea- Primary Personal history of other specified diseases documented in this encounter Care Teams Inspector And Clerk Relationship Specialty Start Date End Date Any Gutierrez MD 200 [place] [address] PCP - General Family Medicine 07/19/23 documented as of this encounter
--- OUTSIDE RECORDS SUMMARY | 2023-11-22 10:26 | External Medical Summary | Summary of Care ---
Author Name Unknown Organization [facility] Address [address] [place] [address] Phone [phone] Care Team Providers Care Fuel Cell Assembler Name Role Phone Any Gutierrez MD Primary Care Provider [phone] Encounter Details Date Type Department Care Team (Late st Contact Info) Description 11/05/2023 Population Health External Data Unspecified Department Allergies Active Allergy Reactions Criticality Noted Date Comments Sulfamethoxazole-Trimethoprim Anaphylaxis High 07/18 Latex Hives 07/19/2023 documented as of this encounter (statuses as of 11/05/2023) Medications Medication Sig Dispensed Refills Start Date [...] as of this encounter (statuses as of 11/05/2023) Active Problems Problem Noted Date Diagnosed Date Food insecurity 08/13/2023 Overview: Per [facility] Protocol Hypertension goal BP (blood pressure) < 140/90 0 07/19/2023 Type 2 diabetes mellitus wit h hemoglobin A1c goal of less than 7.0% 07/19/2023 Bipolar 1 disorder 07/19/2023 S/P gastric sleeve procedure 07/19/2023 CJ on CPAP 07/19/2023 documented as of this encounter (statuses as of 11/05/2023) Social History Tobacco Use Types Packs/Day Years [...] on file documented as of this encounter Plan of Treatment Upcoming Encounters Date Type Department Care Team (Late st Contact Info) Description 11/07/2023 10:30 AM EDT Nurse Only [facility] [place] 200 [facility] [place] [address] [facility] 200 [facility] [place] [address] 11/29/2023 3:00 PM EDT Telemedicine Psychiatry [facility] [address] [place] [phone] Xiomara Bishop MD [address] [place] [address] 03/03/2024 10:40 AM EDT Office Visit Family [facility] [place] 200 [facility] [place] [address] Any Gutierrez MD 200 [place] [address] Health Maintenance Due Date Last Done Comments [...] filedocumented as of this encounter Care Teams Fuel Cell Assembler Relationship Specialty Start Date End Date Any Gutierrez MD [address] [place] [address] PCP - General Family Medicine 07/19/23 documented as of this encounter
--- OUTSIDE RECORDS SUMMARY | 2023-11-22 10:26 | External Medical Summary | Summary of Care ---
Author Name Unknown Organization [facility] Address [address] [place] [address] Phone [phone] Care Team Providers Care Check Writer Name Role Phone Any Gutierrez MD Primary Care Provider [phone] Reason for Visit * Reason Onset Date Comments Test Results 09/04/2023 Encounter Details Date Type Department Care Team (Late st Contact Info) Description 09/04/2023 Telephone Sleep Lab, [facility] [address] [place], [place] [phone] Caitlin Quintana MD [address] [place], [place] [phone] Test Results Allergies Active Allergy Reactions Criticality [...] Diagnosed Date Food insecurity 08/13/2023 Overview: Per [facility] Protocol Hypertension goal BP (blood pressure) [...] Miscellaneous Notes * Telephone Encounter - Monica Cohwdhury RPSGT - 09/04/2023 1:23 PM EDT Left message on requesting the patient return our call to discuss her home sleep study results. documented in this encounter Plan of Treatment Upcoming Encounters Date Type Department Care Team (Late st Contact Info) Description 09/19/2023 2:30 PM EDT [address] [address] Xiomara Bishop MD [address] [place] [address] 03/03/2024 10:40 AM EDT Office Visit [facility] [address] [facility] [place] [address] Any Gutierrez MD 200 [facility] [place] [address] Health Maintenance Due Date Last Done Comments [...] filedocumented as of this encounter Care Teams Check Writer Relationship Specialty Start Date End Date Any Gutierrez MD [address] [place] [address] PCP - General Family Medicine 07/19/23 documented as of this encounter
--- OUTSIDE RECORDS SUMMARY | 2023-11-22 10:27 | External Medical Summary | Summary of Care ---
Author Name Unknown Organization [facility] Address [address] [place] [address] Phone [phone] Care Team Providers Care Head Sulfide Operator Name Role Phone Any Gutierrez MD Primary Care Provider [phone] Reason for Visit * Reason Comments Medication Management Encounter Details Date Type Department Care Team (Late st Contact Info) Description 08/29/2023 2:30 PM EDT [facility] [address] [place], [place] [phone] Xiomara Bishop MD [address] [place], [place] [phone] Bipolar 1 disorder (HCC) [F31.9]*; PTSD (post-traumatic stress disorder) [F43.10]; EPI (generalized anxiety disorder) [F41.1] Allergies Active Allergy Reactions Criticality Noted Date Comments Sulfamethoxazole-Trimethoprim Anaphylaxis High 07/18 Latex Hives 07/19/2023 documented as of this encounter (statuses as of 08/29/2023) Medications Medication Sig Dispensed Refills Start Date [...] 90 Tablet 0 08/29/2023 Active Lurasidone HCl 40 MG Oral Tablet (Latuda) Take 1 Tablet by mouth at bedtime. 0 08/29/2023 Discontinued (Medication/ Dose Changed) QUEtiapine Fumarate 25 MG Oral Tablet (SEROquel) Take 1-2 tablets by mouth at bedtime for sleep 0 08/29/2023 Discontinued (Medication/ Dose Changed) documented as of this encounter (statuses as of 08/29/2023) Active Problems Problem Noted Date Diagnosed Date Food insecurity 08/13/2023 Overview: Per [facility] Protocol Hypertension goal BP (blood pressure) < 140/90 0 07/19/2023 Type 2 diabetes mellitus wit h hemoglobin A1c goal of less than 7.0% 07/19/2023 Bipolar 1 disorder 07/19/2023 S/P gastric sleeve procedure 07/19/2023 CJ on CPAP 07/19/2023 documented as of this encounter (statuses as of 08/29/2023) Social History Tobacco Use Types Packs/Day Years [...] Progress Notes * Xiomara Bishop MD - 08/29/2023 2:37 PM EDT OUTPATIENT PSYCHIATRY RETURN VISIT DIV[facility] OF [facility] [address] Name: Stephani Sales DOB: 1960 Date and Time Patient was Seen: 08/29/2023 at 2.30 pm Patient location: HOME. I was not in a hospital or clinic location. After connecting through [employer], patient was verified with two unique identifiers. Patient (or authorized legal inbound call center representative) was then informed that this was [...] patient: Home CC: " I have been stressed " INTERVAL HISTORY: Patient is a 62 year old female with H/O Bipolar depression, EPI presenting with symptoms of Depression and anxiety. Patient seen in follow up. Patient reports feeling depressed, [place] in [place] [facility], feeling bored, having crying spells,fatigue, lack of interest, unable to pull herself together in spite of trying to keep herself busy with artwork, running on [employer], or going to mormonism. Lost one of her brothers before then dad and now another brother is on dialysis and [facility]. Pt has the court case still going on and has frequent reminders of the incident and unable to sleep. Pt has been trying melatonin with Marijuana but have cut it down since it is not helping anymore. Pt has had past trials with medications like Latuda, Seroquel, Geodon , Klonopin and many SSRI's . Currently on Latuda but not responding well. Vraylar 1.5 mg po daily was started for mood stabilization, Trazodone 50 mg at [...] 1 Tablet by mouth in the morning. Lurasidone HCl 40 MG Oral Tablet (Latuda) Take 1 Tablet by mouth at bedtime. QUEtiapine Fumarate 25 MG Oral Tablet (SEROquel) Take 1-2 tablets by mouth at bedtime for sleep No current facility-administered medications for this visit. VITALS There were no vitals filed for this visit. Wt Readings from Last 3 Encounters: 07/19/23 93.9 kg (207 lb 0.6 oz) There is no height or weight on file to calculate BMI. [place] Suicide Severity Rating Scale Results 08/29/2023 15:40 [place] SUICIDE SEVERITY RATING SCALE (C-SSRS) Have [...] not assessed, patient seen via teleconference Behavior: cooperative, tearful Speech: Normal in tone and rate Mood: anxious and depressed Affect: type - dysthymic; range - constricted; lability - no Associations: [...] Monitoring Program in compliance with the [facility] regulations before prescribing a controlled substance. Last Tox Screen Results: No results found for this or any previous visit. Vraylar 1.5 mg po daily was started for mood stabilization, Trazodone 50 mg at [...] mood/anxiety and current life stressors Billing code: 72725 and G2211 RTC in 3 weeks Xiomara Bishop MD Psychiatry, [address] [address] documented in this encounter Plan of Treatment Upcoming Encounters Date Type Department Care Team (Late st Contact Info) Description 08/31/2023 10:40 AM EDT Office Visit [facility] 200 [facility] [place] [address] Any Gutierrez MD 200 [place] [address] 09/19/2023 2:30 PM EDT Telemedicine Psychiatry, [address] [address] Xiomara Bishop MD [address] [place] [address] Health Maintenance Due Date Last Done Comments [...] Vaccine ( - 2022-2 4 season) 2023 *BASELINE EKG [...] encounter Visit Diagnoses Diagnosis Bipolar 1 disorder (HCC) [F31.9]- Primary Bipolar I disorder, most recent episode (or current) unspecified PTSD (post-traumatic stress disorder) [F43.10] Posttraumatic stress disorder EPI (generalized anxiety disorder) [F41.1] Generalized anxiety disorder documented in this encounter Care Teams Head Sulfide Operator Relationship Specialty Start Date End Date Any Gutierrez MD [address] [place] [address] PCP - General Family Medicine 07/19/23 documented as of this encounter
--- OUTSIDE RECORDS SUMMARY | 2023-11-22 10:27 | External Medical Summary | Summary of Care ---
Author Name Unknown Organization [facility] Address [address] [place] [address] Phone [phone] Care Team Providers Care Sander Portable Machine Name Role Phone Any Gutierrez MD Primary Care Provider [phone] Reason for Visit * Reason Onset Date Comments Scheduling 08/10/2023 Encounter Details Date Type Department Care Team (Late st Contact Info) Description 08/10/2023 Telephone Sleep Disorders, [facility] [address] [place] [address] [facility], Nurse Sleep Disorders [address] [place] [address] Scheduling Allergies Active Allergy Reactions Criticality Noted Date Comments Sulfamethoxazole-Trimethoprim Anaphylaxis High 07/18 Latex Hives 07/19/2023 documented as of this encounter (statuses as of 08/22/2023) Medications Medication Sig Dispensed Refills Start Date End Date Status amLODIPine Besylate 5 MG Oral Tablet (Norvasc) Take 2 Tablets by mouth in the morning. 0 Active Losartan Potassium 100 MG Oral Tablet (Cozaar) Take 1 Tablet by mouth in the morning. 0 Active Lurasidone HCl 40 MG Oral Tablet (Latuda) Take 1 Tablet by mouth at bedtime. 0 Active QUEtiapine Fumarate 25 MG Oral Tablet (SEROquel) Take 1-2 tablets by mouth at bedtime for sleep 0 Active documented as of this encounter (statuses as of 08/22/2023) Active Problems Problem Noted Date Diagnosed Date Hypertension goal BP (blood pressure) < 140/90 0 07/19/2023 Type 2 diabetes mellitus wit h hemoglobin A1c goal of less than 7.0% 07/19/2023 Bipolar 1 disorder 07/19/2023 S/P gastric sleeve procedure 07/19/2023 CJ on CPAP 07/19/2023 documented as of this encounter (statuses as of 08/22/2023) Social History Tobacco Use Types Packs/Day Years [...] encounter Miscellaneous Notes * Telephone Encounter - Jessica Landis OSA - 08/10/2023 10:37 AM EDT Jayden, Can you assist this patient with scheduling a WatchPat? She is aware that you are scheduling out. (She wanted it mailed to her but we were told that they needed to roller picker at a Sleep facility). Thank you! documented in this encounter Plan of Treatment Upcoming Encounters Date Type Department Care Team (Late st Contact Info) Description 08/29/2023 9:00 AM EDT Telemedicine Psychiatry, [place] [address] [address] Xiomara Bishop MD [address] [facility] [place] [address] 08/31/2023 10:40 AM EDT Office Visit Family Practice [facility] [place] [address] [place] [address] Any Gutierrez MD [address] [place] [address] Health Maintenance Due Date Last Done Comments [...] filedocumented as of this encounter Care Teams Sander Portable Machine Relationship Specialty Start Date End Date Any Gutierrez MD [address] [place] [address] PCP - General Family Medicine 07/19/23 documented as of this encounter
--- OUTSIDE RECORDS SUMMARY | 2023-11-22 10:27 | External Medical Summary | Summary of Care ---
Author Name Unknown Organization [facility] Address [address] [place] [address] Phone [phone] Care Team Providers Care Data Entry Specialist Name Role Phone Any Gutierrez MD Primary Care Provider [phone] Reason for Visit * Reason Comments Outpatient Testing Encounter Details Date Type Department Care Team (Late st Contact Info) Description 08/02/2023 10:00 AM EDT Laboratory Laboratory [facility] [address] [place] [address] [facility] [address] [place] [address] Type 2 diabetes mellitus with hemoglobin A1c goal of less than 7.0% ([facility]) Allergies Active Allergy Reactions Criticality Noted Date Comments Sulfamethoxazole-Trimethoprim Anaphylaxis High 07/18 Latex Hives 07/19/2023 documented as of this encounter (statuses as of 08/02/2023) Medications Medication Sig Dispensed Refills Start Date [...] as of this encounter (statuses as of 08/02/2023) Active Problems Problem Noted Date Diagnosed Date Hypertension goal BP (blood pressure) < 140/90 0 07/19/2023 Type 2 diabetes mellitus wit h hemoglobin A1c goal of less than 7.0% 07/19/2023 Bipolar 1 disorder 07/19/2023 S/P gastric sleeve procedure 07/19/2023 CJ on CPAP 07/19/2023 documented as of this encounter (statuses as of 08/02/2023) Social History Tobacco Use Types Packs/Day Years [...] Care Team (Late st Contact Info) Description 08/06/2023 2:00 PM EDT Telemedicine Sleep Disorders, [facility] [address] [place] [address] Caitlin Quintana MD [address] [place] [address] 08/29/2023 9:00 AM EDT Telemedicine Psychiatry, [place] [address] [place] [address] Xiomara Bishop MD [address] [place] [address] 08/31/2023 10:40 AM EDT Office Visit [facility] [address] [place] [address] Any Gutierrez MD [address] [place] [address] Pending Results Name Type Priority Associated Diagnoses Date /Time ALBUMIN / CREATININE RATIO, URINE Lab Routine Type 2 diabetes mellitus with hemoglobin A1c goal of less than 7.0% (HCC) 08/02/2023 10:00 AM EDT Health Maintenance Due Date Last Done Comments Pneumococcal Vaccine: Pediat rics (0 to 5 Years) and At-Risk Patients (6 to 64 Years) (1 of 2 - PCV) 12/12/1967 Depression Screening 1973 HIV Screening 1976 Albumin/Creatinine Ratio 12/12/1979 Diabetic Eye Exam 12/12/1979 Diabetic Foot Exam 12/12/1979 Hepatitis C Screening 12/12/1979 DTaP,Tdap,and Td Vaccines (1 - Tdap) 1980 Cologuard 2006 Colonoscopy 2006 Colorectal Cancer Screening 2006 Fecal Occult Blood Test 2006 Sigmoidoscopy 2006 Zoster Vaccines (1 of 2) 12/12/2011 COVID-19 Vaccine (1 - 2022-2 4 season) 2023 Influenza Vaccine (FLU shot) (#1) 2023 *BASELINE EKG FOR HTN 07/23/2023 HbA1c 01/19/2024 07/19/2023 GFR 07/18/2024 07/19/2023 Mammogram 07/24/2024 07/25/2023 Lipid Panel 07/18/2028 07/19/2023 GARDASIL-HPV IMMUNIZATION SERIES [...] as of this encounter Visit Diagnoses Diagnosis Type 2 diabetes mellitus with hemoglobin A1c goal of less than 7.0% (HCC) documented in this encounter Care Teams Data Entry Specialist Relationship Specialty Start Date End Date Any Gutierrez MD [address] [place] [address] PCP - General Family Medicine 07/19/23 documented as of this encounter
--- OUTSIDE RECORDS SUMMARY | 2023-11-22 10:27 | External Medical Summary | Summary of Care ---
Author Name Unknown Organization [facility] Address [address] [place] [address] Phone [phone] Care Team Providers Care Sisal Operator Name Role Phone Any Gutierrez MD Primary Care Provider [phone] Reason for Visit * Reason Comments Medication Management Encounter Details Date Type Department Care Team (Late st Contact Info) Description 08/29/2023 2:30 PM EDT [facility] [address] [place], [place] [phone] Xiomara Bishop MD [address] [place], [place] [phone] Bipolar 1 disorder (HCC) [F31.9]*; PTSD (post-traumatic [...] Diagnosed Date Food insecurity 08/13/2023 Overview: Per [facility] Protocol Hypertension goal BP (blood pressure) [...] OUTPATIENT PSYCHIATRY RETURN VISIT DIVISION OF PSYCHIATRY [facility] [address] Name: Stephani Sales DOB: 1960 Date and Time Patient was Seen: 08/29/2023 at 2.30 pm Patient location: HOME. I was not in a hospital or clinic location. After connecting through [employer], patient was verified with two unique identifiers. Patient (or authorized legal indirect sales representative) was then informed that this [...] depressed, difficulty in adjusting [place] from [facility], feeling bored, having crying spells,fatigue, lack of interest, unable to pull herself together in spite of trying to keep herself busy with artwork, running on [employer], or going to mosque. Lost one of her brothers before then dad and now another brother is on dialysis and [facility]. Pt has the court case still [...] or weight on file to calculate BMI. [place] Suicide Severity Rating Scale Results 08/29/2023 15:40 [...] Drug Monitoring Program in compliance with the [facility] regulations before prescribing a controlled [...] mood/anxiety and current life stressors Billing code: 03871 and G2211 RTC in 3 weeks Xiomara Bishop MD Psychiatry, [address] [address] documented in this encounter Plan of Treatment Upcoming Encounters Date Type Department Care Team (Late st Contact Info) Description 08/31/2023 10:40 AM EDT Office Visit [facility] 200 [place] [address] Any Gutierrez MD 200 [place] [address] 09/19/2023 2:30 PM EDT Telemedicine Psychiatry, [address] [address] Xiomara Bishop MD [address] [place] [address] Health Maintenance Due Date Last Done Comments [...] disorder documented in this encounter Care Teams Sisal Operator Relationship Specialty Start Date End Date Any Gutierrez MD [address] [place] [address] PCP - General Family Medicine 07/19/23 documented as of this encounter
--- OUTSIDE RECORDS SUMMARY | 2023-11-22 10:27 | External Medical Summary | Summary of Care ---
Author Name Unknown Organization [facility] Address [address] [place] [address] Phone [phone] Care Team Providers Care Cook Camp Name Role Phone Any Gutierrez MD Primary Care Provider [phone] Reason for Visit * Reason Onset Date Comments Scheduling 08/10/2023 Encounter Details Date Type Department Care Team (Late st Contact Info) Description 08/10/2023 Telephone Sleep Disorders, [facility] [address] [place] [address] [facility], Nurse Sleep Disorders [address] [place] [address] Scheduling Allergies Active Allergy Reactions Criticality Noted Date Comments Sulfamethoxazole-Trimethoprim Anaphylaxis High 07/18 Latex Hives 07/19/2023 documented as of this encounter (statuses as of 08/24/2023) Medications Medication Sig Dispensed Refills Start Date [...] as of this encounter (statuses as of 08/24/2023) Active Problems Problem Noted Date Diagnosed Date Food insecurity 08/13/2023 Overview: Per [facility] Protocol Hypertension goal BP (blood pressure) < 140/90 0 07/19/2023 Type 2 diabetes mellitus wit h hemoglobin A1c goal of less than 7.0% 07/19/2023 Bipolar 1 disorder 07/19/2023 S/P gastric sleeve procedure 07/19/2023 CJ on CPAP 07/19/2023 documented as of this encounter (statuses as of 08/24/2023) Social History Tobacco Use Types Packs/Day Years [...] encounter Miscellaneous Notes * Telephone Encounter - Nieves Knapp OSA - 08/24/2023 1:54 PM EDT Patient aware and scheduled for WatchPat pick-up at the 's location, 08/27/23 at 2:00 pm. * Telephone Encounter - Nieves Knapp, CJ - 08/24/2023 1:41 PM EDT Left message for patient to call the [facility] location to schedule her Watchpat pick-up. * Telephone Encounter - Jessica Landis OSA - 08/10/2023 10:37 AM EDT Jayden, Can you assist this patient with scheduling a WatchPat? She is aware that you are scheduling out. (She wanted it mailed to her but we were told that they needed to strip picker at a Sleep facility). Thank you! documented in this encounter Plan of Treatment Upcoming Encounters Date Type Department Care Team (Late st Contact Info) Description 08/27/2023 2:00 PM EDT [facility] [address] [place] [address] [place], Sleep Med Home Study [facility] [address] [facility] [place] [address] 08/29/2023 9:00 AM EDT Telemedicine Psychiatry, [place] [address] [place] [address] Xiomara Bishop MD [address] [place] [address] 08/31/2023 10:40 AM EDT Office Visit Family Practice [facility] [address] [facility] [address] Any Gutierrez MD [address] [place] [address] Health Maintenance Due Date Last Done Comments [...] filedocumented as of this encounter Care Teams Cook Camp Relationship Specialty Start Date End Date Any Gutierrez MD [address] [facility] [place] [address] PCP - General Family Medicine 07/19/23 documented as of this encounter
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
--- OUTSIDE RECORDS SUMMARY | 2023-11-22 10:27 | External Medical Summary | Summary of Care ---
Author Name Unknown Organization [facility] Address [address] [place] [address] Phone [phone] Care Team Providers Care Electronics Recycler Name Role Phone Any Gutierrez MD Primary Care Provider [phone] Reason for Visit * Reason Onset Date Comments Appointment 08/29/2023 Encounter Details Date Type Department Care Team (Late st Contact Info) Description 08/29/2023 Telephone [facility], [place] [address] [place] [address] Xiomara Bishop MD [address] [place] [address] Appointment Allergies Active Allergy Reactions Criticality Noted Date [...] encounter Miscellaneous Notes * Telephone Encounter - Shirley Humphrey OSA - 08/29/2023 9:50 AM EDT Pt called in due to missing 9 am appt today. Said she was having trouble with my G password and hadalready spoken with the support line regarding resetting. Made sure pt had My G support number and she said she was going to try and reset the password again. Pt is rescheduled for this afternoon andmessaged provider to let them know that patient may need to be called on the phone if she is unableto reset password and connect by video. documented in this encounter Plan of Treatment Upcoming Encounters Date Type Department Care Team (Late st Contact Info) Description 08/29/2023 2:30 PM EDT [facility] [address] [address] Xiomara Bishop MD [address] [place] [address] 08/31/2023 10:40 AM EDT Office Visit Family Practice [facility] [address] [facility] [place] [address] Any Gutierrez MD 200 [facility] [place] [address] Health Maintenance Due Date Last Done Comments [...] filedocumented as of this encounter Care Teams Electronics Recycler Relationship Specialty Start Date End Date Any Gutierrez MD [address] [place] [address] PCP - General Family Medicine 07/19/23 documented as of this encounter
--- OUTSIDE RECORDS SUMMARY | 2023-11-22 10:27 | External Medical Summary | Summary of Care ---
Author Name Unknown Organization [facility] Address [address] [place] [address] Phone [phone] Care Team Providers Care Supply Analyst Name Role Phone Any Gutierrez MD Primary Care Provider Reason for Visit * Reason Onset Date Comments Scheduling 08/06/2023 WatchPat Encounter Details Date Type Department Care Team (Late st Contact Info) Description 08/06/2023 Telephone Sleep Disorders, [facility] [address] [place] [address] [facility], Nurse Sleep Disorders [address] [place] [address] Scheduling (WatchPat) Allergies Active Allergy Reactions Criticality Noted Date Comments Sulfamethoxazole-Trimethoprim Anaphylaxis High 07/18 Latex Hives 07/19/2023 documented as of this encounter (statuses as of 08/06/2023) Medications Medication Sig Dispensed Refills Start Date [...] as of this encounter (statuses as of 08/06/2023) Active Problems Problem Noted Date Diagnosed Date Hypertension goal BP (blood pressure) < 140/90 0 07/19/2023 Type 2 diabetes mellitus wit h hemoglobin A1c goal of less than 7.0% 07/19/2023 Bipolar 1 disorder 07/19/2023 S/P gastric sleeve procedure 07/19/2023 CJ on CPAP 07/19/2023 documented as of this encounter (statuses as of 08/06/2023) Social History Tobacco Use Types Packs/Day Years [...] Description 08/29/2023 9:00 AM EDT Telemedicine Psychiatry, [place] [address] [place] [facility] [place] [address] Xiomara Bishop MD [address] [place] [address] 08/31/2023 10:40 AM EDT Office Visit Family Practice [facility] [place] [address] [facility] [place] [address] Any Gutierrez MD 200 [facility] [place] [address] Health Maintenance Due Date Last Done Comments Pneumococcal Vaccine: Pediat rics (0 to 5 Years) and At-Risk Patients (6 to 64 Years) (1 of 2 - PCV) 12/12/1967 Depression Screening 1973 HIV Screening 1976 Diabetic Eye Exam 12/12/1979 [...] filedocumented as of this encounter Care Teams Supply Analyst Relationship Specialty Start Date End Date Any Gutierrez MD [address] [place] [address] PCP - General Family Medicine 07/19/23 documented as of this encounter
--- OUTSIDE RECORDS SUMMARY | 2023-11-22 10:27 | External Medical Summary | Summary of Care ---
Author Name Unknown Organization [facility] Address [address] [place] [address] Phone [phone] Care Team Providers Care Sales Contract Administrator Name Role Phone Unavailable Primary Care Provider Unavailabl e Encounter Details Date Type Department Care Team (Latest Contact Info) Description 05/21/2012 11:10 AM EST - 05/21/2012 11:59 PM EST Hospital Encounter Radiology [place] [address] [place] [address] Discharge Disposition: Home - Self Care Allergies Active Allergy Reactions Criticality Noted Date Comments Sulfamethoxazole-Trimethoprim Anaphylaxis High 07/18 Latex Hives 07/19/2023 documented as of this encounter (statuses as of 07/25/2023) Medications No known medicationsdocumented as of this encounter (statuses as of 07/25/2023) Active Problems Problem Noted Date Diagnosed Date Hypertension goal BP (blood pressure) < 140/90 0 07/19/2023 Type 2 diabetes mellitus wit h hemoglobin A1c goal of less than 7.0% 07/19/2023 Bipolar 1 disorder 07/19/2023 S/P gastric sleeve procedure 07/19/2023 CJ on CPAP 07/19/2023 documented as of this encounter (statuses as of 07/25/2023) Social History Tobacco Use Types Packs/Day Years Used Date Smoking Tobacco: Never Assessed Sex and Gender Information Value Date Recorded Sex Assigned at Not on file Gender Identity Not on file Sexual Orientation Not on file Job Start Date Occupation Industry Not on file Not on file Not on file documented as of this encounter Plan of Treatment Upcoming Encounters Date Type Department Care Team (Late st Contact Info) Description 08/31/2023 10:40 AM EDT Office Visit Family Practice [place], [place] [address] [place] [address] Any Gutierrez MD [address] [place] [address] Health Maintenance Due Date Last Done Comments Pneumococcal Vaccine: Pediat rics (0 to 5 Years) and At-Risk Patients (6 to 64 Years) (1 of 2 - PCV) 12/12/1967 Depression Screening 1973 HIV Screening 1976 Albumin/Creatinine Ratio 12/12/1979 Diabetic Eye Exam 12/12/1979 Diabetic Foot Exam 12/12/1979 Hepatitis C Screening 12/12/1979 DTaP,Tdap,and Td Vaccines (1 - Tdap) 1980 Mammogram 2001 Cologuard 2006 Colonoscopy 2006 Colorectal Cancer Screening 2006 Fecal Occult Blood Test 2006 Sigmoidoscopy 2006 Zoster Vaccines (1 of 2) 12/12/2011 COVID-19 Vaccine (1 - 2022-2 4 season) 2023 Influenza Vaccine (FLU shot) (#1) 2023 *BASELINE EKG FOR HTN 07/23/2023 HbA1c 01/19/2024 07/19/2023 GFR 07/18/2024 07/19/2023 Lipid Panel 07/18/2028 07/19/2023 GARDASIL-HPV IMMUNIZATION SERIES [...] Not on filedocumented as of this encounter Procedures Procedure Name Priority Date/Time Associated Diagnosis Comments RADIOLOGY EXAM - MAMMOGRAPHY (IMAGES ONLY, NO REPORT) Routine 05/21/2012 11:10 AM EST documented in this encounter Results * RADIOLOGY EXAM - MAMMOGRAPHY (IMAGES ONLY, NO REPORT) (05/21/2012 11:10 AM EST) 05/21/2012 11:0 8 AM EST Narrative Scheduling, [place] - 07/24/2023 10:00 AM EDT This is an imaging study not interpreted or resulted by a [facility] or [facility] contracted radiologist. Any Gutierrez MD RAD MAMMOGRAPHY documented in this encounter
--- OUTSIDE RECORDS SUMMARY | 2023-11-22 10:27 | External Medical Summary | Summary of Care ---
Author Name Unknown Organization [facility] Address [address] [place] [address] Phone [phone] Care Team Providers Care Email Production Specialist Name Role Phone Any Gutierrez MD Primary Care Provider [phone] Reason for Visit * Reason Onset Date Comments Scheduling 08/10/2023 Encounter Details Date Type Department Care Team (Late st Contact Info) Description 08/10/2023 Telephone Sleep Disorders, [facility] [address] [place] [address] [facility], Nurse Sleep Disorders [address] [place] [address] Scheduling Allergies Active Allergy Reactions [...] Diagnosed Date Food insecurity 08/13/2023 Overview: Per [facility] Protocol Hypertension goal BP (blood [...] Encounter - Nieves Knapp OSA - 08/24/2023 1:41 PM EDT Left message for patient to call the [facility] location to schedule her Watchpat pick-up. * Telephone Encounter - Jessica Landis OSA - 08/10/2023 10:37 AM EDT Jayden, Can you assist this patient with scheduling a WatchPat? She is aware that you are scheduling out. (She wanted it mailed to her but we were told that they needed to pickle cutter at a Sleep facility). Thank you! documented in this encounter Plan of Treatment Upcoming Encounters Date Type Department Care Team (Late st Contact Info) Description 08/29/2023 9:00 AM EDT [place] [place] [address] [place] [address] Xiomara Bishop MD [address] [place] [address] 08/31/2023 10:40 AM EDT Office Visit [facility] [address] [facility] [place] [address] Any Gutierrez MD 200 [place] [address] Health Maintenance Due Date Last Done Comments [...] filedocumented as of this encounter Care Teams Email Production Specialist Relationship Specialty Start Date End Date Any Gutierrez MD [address] [place] [address] PCP - General Family Medicine 07/19/23 documented as of this encounter
--- OUTSIDE RECORDS SUMMARY | 2023-11-22 10:27 | External Medical Summary | Summary of Care ---
Author Name Unknown Organization [facility] Address [address] [place] [address] Phone [phone] Care Team Providers Care Special Agent Name Role Phone Any Gutierrez MD Primary Care Provider [phone] Reason for Visit * Reason Onset Date Comments Scheduling 08/10/2023 Encounter Details Date Type Department Care Team (Late st Contact Info) Description 08/10/2023 Telephone Sleep Disorders, [facility] [address] [place] [address] [facility], Nurse Sleep Disorders [address] [place] [address] Scheduling Allergies Active Allergy Reactions Criticality Noted Date Comments Sulfamethoxazole-Trimethoprim Anaphylaxis High 07/18 Latex Hives 07/19/2023 documented as of this encounter (statuses as of 08/10/2023) Medications Medication Sig Dispensed Refills Start Date [...] as of this encounter (statuses as of 08/10/2023) Active Problems Problem Noted Date Diagnosed Date Hypertension goal BP (blood pressure) < 140/90 0 07/19/2023 Type 2 diabetes mellitus wit h hemoglobin A1c goal of less than 7.0% 07/19/2023 Bipolar 1 disorder 07/19/2023 S/P gastric sleeve procedure 07/19/2023 CJ on CPAP 07/19/2023 documented as of this encounter (statuses as of 08/10/2023) Social History Tobacco Use Types Packs/Day Years [...] we were told that they needed to meat pickler at a Sleep facility). Thank you! documented in this encounter Plan of Treatment Upcoming Encounters Date Type Department Care Team (Late st Contact Info) Description 08/29/2023 9:00 AM EDT Telemedicine Psychiatry, [place] [address] [place] [address] Xiomara Bishop MD [address] [facility] [place] [address] 08/31/2023 10:40 AM EDT Office Visit Family Practice [facility] [place] [address] [place] [address] Any Gutierrez MD [address] [place] [address] Health Maintenance Due Date Last Done Comments [...] filedocumented as of this encounter Care Teams Special Agent Relationship Specialty Start Date End Date Any Gutierrez MD [address] [place] [address] PCP - General Family Medicine 07/19/23 documented as of this encounter
--- OUTSIDE RECORDS SUMMARY | 2023-11-22 10:27 | External Medical Summary ---
Author Name Unknown Address Unknown Organization K01:[facility] - [address] [place] [address] Laboratory Report Ordering Provider Test Date Status DARIANA YADAV 08/02/2023 10:00:41 Final Normal: <30 mg/g creatinine< br/>High: 30-300 mg/g creatinine
Very High: >300 mg/g creatinine
Nephrotic: >2200 mg/g creatinine Observation Date Value Abnormality Reference (Units ) Status Albumin, Urine 08/02/2023 10:00:41 <1.20 (mg/dL) Final Creatinine, Urine 08/02/2023 10:00:41 153 (mg/dL) Final Albumin/Creatinine [Mass Ratio] in Urine 08/02/2023 10:00:41 <8 <30 (mg/g Creat) Final Performing Location [facility] - [address] [place] [address]
--- OUTSIDE RECORDS SUMMARY | 2023-11-22 10:27 | External Medical Summary | Summary of Care ---
Author Name Unknown Organization [facility] Address [address] [place] [address] Phone [phone] Care Team Providers Care Entry Processor Name Role Phone Any Gutierrez MD Primary Care Provider [phone] Reason for Visit * Reason Comments NEW PATIENT * Evaluate & Treat - Unlimited Visits (Within 30 days (routine)) - Authorized Specialty Diagnoses / Procedures Referred By Contac t Referred To Contact Sleep Medicine / Sleep Disorders Diagnoses CJ on CPAP Any Gutierrez MD [address] [place] [address] Referral ID Status Reason Start Date Expiration Date Visits Requested Visits Authorized [id number] Authorized Specialty Services Required 07/19/2023 2 2 Encounter Details Date Type Department Care Team (Late st Contact Info) Description 08/06/2023 2:00 PM EDT Telemedicine Sleep Disorders, [address] [address] Caitlin Quintana MD [address] [place] [address] CJ (obstructive sleep apnea)* Allergies Active Allergy Reactions Criticality Noted Date [...] Progress Notes * Caitlin Quintana MD - 08/06/2023 2:14 PM EDT Patient location: HOME. I was in a hospital or clinic location. After connecting through televideo,patient was verified with two unique identifiers. Patient (or authorized legal patient support representative) was then informed that this was a Telemedicine visit and being conducted confidentially over secure lines. Methods to assure confidentiality were taken. Patient acknowledged consent and understanding of pr ivacy and security of the Telemedicine visit. The patient agreed to participate. Name: Stephani Sales Sex: female : 1960 CC/REASON FOR CONSULT: CJ HPI: Patient is a 62 yo lady with history of DM, HTN, bipolar, depression, anxiety, CJ on bipap, s/p gastric bypass. Patient lost 200 pounds. Patient is waking up gasping for air. Patient does keep a regular sleep/wake schedule. Patient goes to bed by 8-9 PM. Patient usually wakes up by 5 AM. On weekends, patient does keep the same sleep schedule. Patient estimates a total sleep time (in a 24 hour period) of 6-7 hours. Patient does work. Patient Denies problem falling asleep in 15 minutes. Bedtime routine: relax. Patient is taking Seroquel. . Patient usually sleeps in the side position. Once patient falls asleep, patient does wake up in the middle of the night, because of need to urinate. Patient has been told about snoring. Patient Denies waking up from sleep gasping for air or choking. Patient does feel refreshed upon waking up. Patient reports waking up with a dry mouth in the morning. During sleep patient usually breathes through Mouth. There has been a recent change in weight. Lost 200 pounds. Daytime sleepiness is not a problem. There is no history of cataplexy, sleep paralysis or hypnagogic hallucinations. There is no history of a viral illness or significant head injury prior to the start of daytime sleepiness. Patient does not take naps. Patient does drive. Patient Denies feeling sleepy while driving. Patient does drink caffeinated beverages per day. Patient Denies having an urge to move the legs. Patient Denies any history of parasomnias. Patient has not had a nasal fracture or other facial trauma. Patient has not had any upper airway surgery. Patient does have problems with nocturnal gastroesophageal reflux. Patient does not have difficulty with memory or concentration. PAST TREATMENTS: BIPAP PRIOR SLEEP STUDIES: Unavailable to review OTHER RELEVANT LABS AND STUDIES: None Review of Systems: General/Constitutional: Denies fever, chills, night sweats, or unexplained changes in weight. Head: Denies headache, dizziness, lightheadedness, or syncope. Eyes: Denies changes in vision, pain, itching, drainage, or redness. Ears: Denies changes in hearing, pain, pressure, ringing, or drainage. Nose: Denies congestion, loss of smell, rhinorrhea, sneezing, or sinus pressure. Throat: Denies post-nasal drip, sore throat, dry mouth, hoarseness, sour tastes in mouth/back of throat, or difficulty swallowing. Cardiovascular: Denies chest pain, palpitations, dyspnea on exertion, or edema in the lower extremities. Pulmonary: Denies shortness of breath, cough, wheezing, tightness hemoptysis, or phlegm. Gastrointestinal: Denies nausea, vomiting, diarrhea, constipation, indigestion/reflux, hematemesis,pain, melena or hematochezia. Genitourinary: Denies nocturia, urgency, frequency, incontinence, dysuria, or blood in urine. Musculoskeletal: Denies neck, back, or other joint pain. Denies numbness/tingling in extremities. Psych: Denies depression or anxiety. No past medical history on file. Past Surgical History: Procedure Laterality Date BREAST BIOPSY Left 2013 negative GASTRIC BYPASS FOR OBESITY OTHER Patient reports hysterectomy for HMB, no oophorectomy REDUCTION OF BREAST Bilateral 2015 Social History Tobacco Use Smoking status: Never Smokeless tobacco: Never Vaping Use Vaping Use: Never used Family History Problem Relation Age of Onset Hypertension Mother Diabetes Mother Dementia Mother Seizures Father Allergies as of 08/06/2023 - Reviewed 08/01/2023 Allergen Reaction Noted Bactrim [sulfamethoxazole-trimethoprim] Anaphylaxis 07/19/2023 Latex Hives 07/19/2023 Current Outpatient Medications Medication Sig Dispense Refill [...] No current facility-administered medications for this visit. Physical Exam: Unable to attain due to nature of telemedicine encounter Assessment: Patient is a 62 yo lady with history of DM, HTN, bipolar, depression, anxiety, CJ on bipap, s/p gastric bypass. Patient lost 200 pounds CJ WatchPAT Discussed the diagnosis and consequences including but not limited to i.e increased risk for hypertension, arrhthymias, stroke, congestive heart failure and . Treatment options discussed in detail, CPAP therapy explained. All questions were answered. Consider weight loss. JNC 7 lists CJ as a causal risk factor for hypertension. Effective treatment of hypertension decreases cardiovascular risk/injury Recommended patient keep consistent bed/wake times and to get 7-8 hours of sleep. Reviewed good sleep hygiene. Advised patient on the dangers of drowsy driving and not to drive when drowsy. F/U in 2 weeks after WP or sooner if needed. MD Any Young MD documented in this encounter Plan of Treatment Upcoming Encounters Date Type Department Care Team (Late st Contact Info) Description 08/29/2023 9:00 AM EDT Telemedicine Psychiatry, [place] [address] [place] [address] Xiomara Bishop MD [address] [place] [address] 08/31/2023 10:40 AM EDT Office Visit Family [facility] [address] [facility] [place] [address] Any Gutierrez MD 200 [place] [address] Scheduled Orders Name Type Priority Associated Diagnoses Orde r Schedule TIMED SLEEP STUDY, UNATTEND, HR/O2 SAT/RESP Procedures Routine CJ (obstructive sleep apnea) Ordered: 08/06/2023 Health Maintenance Due Date Last Done Comments [...] (pediatric) documented in this encounter Care Teams Entry Processor Relationship Specialty Start Date End Date Any Gutierrez MD [address] [place] [address] PCP - General Family Medicine 07/19/23 documented as of this encounter
--- OUTSIDE RECORDS SUMMARY | 2023-11-22 10:27 | External Medical Summary | Summary of Care ---
Author Name Unknown Organization [facility] Address [address] [place] [address] Phone [phone] Care Team Providers Care Cementer Helper Name Role Phone Any Gutierrez MD Primary Care Provider [phone] Reason for Visit * Reason Comments Well Adult Exam Pelvic and breast ex am Acute Encounter Details Date Type Department Care Team (Latest Contact Info) Description 08/31/2023 10:40 AM EDT Office Visit Family Practice [facility] [address] [place] [address] Any Gutierrez MD [address] [place] [address] Well woman exam with routine gynecological exam* Allergies Active Allergy Reactions Criticality Noted Date Comments Sulfamethoxazole-Trimethoprim Anaphylaxis High 07/18 Latex Hives 07/19/2023 documented as of this encounter (statuses as of 08/31/2023) Medications Medication Sig Dispensed Refills Start Date [...] as of this encounter (statuses as of 08/31/2023) Active Problems Problem Noted Date Diagnosed Date Food insecurity 08/13/2023 Overview: Per [facility] Protocol Hypertension goal BP (blood pressure) < 140/90 0 07/19/2023 Type 2 diabetes mellitus wit h hemoglobin A1c goal of less than 7.0% 07/19/2023 Bipolar 1 disorder 07/19/2023 S/P gastric sleeve procedure 07/19/2023 CJ on CPAP 07/19/2023 documented as of this encounter (statuses as of 08/31/2023) Social History Tobacco Use Types Packs/Day Years [...] Sign Reading Time Taken Comments Blood Pressure 124/80 08/31/2023 10:32 AM EDT Pulse 79 08/31/2023 10:32 AM EDT Temperature 36.1 C (96.9 F) 08/31/2023 1 0:32 AM EDT Respiratory Rate 16 08/31/2023 10:3 2 AM EDT Oxygen Saturation 98% 08/31/2023 10: 32 AM EDT Inhaled Oxygen Concentration - - Weight 93.4 kg (205 lb 12.8 oz) 024 10:32 AM EDT Height - - Body Mass Index 33.22 07/19/2023 1:09 PM EDT documented in this encounter Progress Notes * Any Gutierrez MD - 08/31/2023 4:22 PM EDT Subjective Chief Complaint Patient presents with Well Adult Exam Pelvic and breast exam Acute HPI: Stephani Sales is a 62 year old female. Patient is unaccompanied. The following issues were addressed today: Patient presents today for well woman exam. Reports history of "partial hysterectomy" for heavy menstrual bleeding. Suspect MANFRED without BSO. Will have previous records transferred. No longer needs Pap smears. Recent mammogram on 07/25/23 was normal. She is but not currently sexually active. Patient denies dysuria, urinary frequency or urgency, pelvic pain, vaginal discharge, vaginal bleeding or breast concerns. Patient denies family history of breast, uterine, or ovarian cancer. Review of Systems: See HPI Objective BP 124/80 | Pulse 79 | Temp 36.1 C (96.9 F) (Tympanic) | Resp 16 | Wt 93.4 kg (205 lb 12.8 oz) | SpO2 98% | BMI 33.22 kg/m | BSA 2.09 m Wt Readings from Last 3 Encounters: 08/31/23 93.4 kg (205 lb 12.8 oz) 07/19/23 93.9 kg (207 lb 0.6 oz) BP Readings from Last 3 Encounters: 08/31/23 124/80 07/19/23 138/80 General: Well-appearing, no acute distress Cardiovascular: Regular rate and rhythm, no murmur Respiratory: Good respiratory effort, breath sounds equal and clear to auscultation bilaterally Abdomen: Soft, non-distended, non-tender, normoactive bowel sounds Psychiatric: Appropriate mood and affect Breasts: Symmetrical, no skin changes, masses, nipple discharge, or tenderness, no axillary lymphadenopathy Vulva/Perineum: Normal development, no lesions, sparse hair distribution, normal anus Urethral meatus: Normal location and size, no lesions Urethra: No masses, tenderness, or scarring Vagina: Atrophic, no discharge or lesions, no cystocele or rectocele Assessment & Plan 1. Well woman exam with routine gynecological exam Age-appropriate health maintenance and screening recommendations were reviewed. The following recommendations were discussed and/or provided to patient in the after-visit summary: Avoidance of tobacco Being physically active with a goal of 150 to 300 minutes of moderate physical activity each week Eating a diet rich in fruits, vegetables, and whole grains and low in saturated/trans fat, red and processed meats, and highly processed foods and refined grain products Limiting alcohol consumption Protecting against sexually transmitted infections Avoidance of excess sun exposure, using sunscreen with SPF 30 or higher, and wearing sun protectiveclothing when appropriate No Pap smear indicated due to hysterectomy for benign reasons. Mammogram UTD. Follow Up: Return in about 6 months (around 03/01/2024) for routine follow-up. | Check-out note: Needs to sign records release This note was electronically signed by Any Gutierrez MD documented in this encounter Nursing Notes * Deborah Lee LPN - 08/31/2023 10:30 AM EDT Stephani Sales presents for annual woman's health exam. Medications & HM reviewed. documented in this encounter Plan of Treatment Upcoming Encounters Date Type Department Care Team (Late st Contact Info) Description 09/19/2023 2:30 PM EDT Telemedicine [facility] [address] [place] [address] Xiomara Bishop MD [address] [place] [address] 03/03/2024 10:40 AM EDT Office Visit Family Practice [facility] [place] [address] [facility] [place] [address] Any Gutierrez MD [address] [facility] [place] [address] Health Maintenance Due Date Last Done Comments [...] as of this encounter Visit Diagnoses Diagnosis Well woman exam with routine gynecological exam- Primary Routine gynecological examination documented in this encounter Care Teams Cementer Helper Relationship Specialty Start Date End Date Any Gutierrez MD [address] [place] [address] PCP - General Family Medicine 07/19/23 documented as of this encounter
--- OUTSIDE RECORDS SUMMARY | 2023-11-22 10:27 | External Medical Summary | Summary of Care ---
Author Name Unknown Organization [facility] Address [address] [place] [address] Phone [phone] Care Team Providers Care Beef Splitter Name Role Phone Unavailable Primary Care Provider Unavailabl e Encounter Details Date Type Department Care Team (Latest Contact Info) Description 12/01/2009 8:25 AM EDT - 12/01/2009 11:59 PM EDT Hospital Encounter Radiology Film File [address] [place] [address] Discharge Disposition: Home - Self [...] A1c goal of less than 7.0% 07/19/2023 ATYPICAL BIPOLAR DISORDER 07/19/2023 S/P gastric sleeve procedure 07/19/2023 CJ [...] EDT Office Visit Family Practice [facility] [place] [address] [facility] [place], [place] [address] Any Gutierrez MD 200 [facility] [place] [address] Health Maintenance Due Date Last Done Comments [...] - MAMMOGRAPHY (IMAGES ONLY, NO REPORT) Routine 12/01/2009 8:25 AM EDT documented in this encounter Results * RADIOLOGY EXAM - MAMMOGRAPHY (IMAGES ONLY, NO REPORT) (12/01/2009 8:25 AM EDT) 12/01/2009 8:24 AM EDT Narrative Scheduling, Silent - 07/24/2023 10:03 AM EDT This is an imaging study not interpreted or resulted by a [facility] or [facility] radiologist. Any Gutierrez MD RAD MAMMOGRAPHY documented in this encounter
--- OUTSIDE RECORDS SUMMARY | 2023-11-22 10:28 | External Medical Summary ---
Author Name Unknown Address Unknown Organization [id number][facility] [place] [address] Laboratory Report Ordering Provider Test Date Status DARIANA YADAV 07/19/2023 14:39:25 Final Observation Date Value Abnormality Reference (Units ) Status SYNC LEUKOCYTES IN BLOOD BY AUTOMATED COUNT 07/19/2023 14:39:25 6.67 4.00-10.80 (K/uL) Final Segs 07/19/2023 14:39:25 52.2 40.0-75.0 (%) Final Lymphs % 07/19/2023 14:39:25 32.5 18.0-42.0 (%) Final Monos 07/19/2023 14:39:25 9.0 1.0-11.0 (%) Final Eosinophils 07/19/2023 14:39:25 6.0 0.0-6.0 (%) Final Basos 07/19/2023 14:39:25 0.3 0.0-2.0 (%) Final Absolute Segs 07/19/2023 14:39:25 3.48 1.80-7.70 (K/uL) Final Lymphs, absolute 07/19/2023 14:39:25 2.17 1.00-4.80 (K/ul) Final Monos, Abs 07/19/2023 14:39:25 0.60 0.00-1.10 (K/uL) Final Eos, Abs 07/19/2023 14:39:25 0.40 0.00-0.70 (K/uL) Final Basos, Abs 07/19/2023 14:39:25 0.02 0.00-0.20 (K/uL) Final Performing Location [facility] [address]
--- OUTSIDE RECORDS SUMMARY | 2023-11-22 10:28 | External Medical Summary | Summary of Care ---
Author Name Unknown Organization [facility] Address [address] [place] [address] Phone [phone] Care Team Providers Care Hospital Administrator Name Role Phone Unavailable Primary Care Provider Unavailabl e Encounter Details Date Type Department Care Team (Latest Contact Info) Description 07/08/2015 10:05 AM EST - 07/08/2015 11:59 PM EST Hospital Encounter Radiology Film File [address] [place] [address] Discharge Disposition: Home - Self [...] EDT Office Visit Family Practice [place] [address] [place], [place] [address] Any Gutierrez MD [address] [place], [place] [address] Health Maintenance Due Date Last Done Comments [...] - MAMMOGRAPHY (IMAGES ONLY, NO REPORT) Routine 07/08/2015 10:05 AM EST documented in this encounter Results * RADIOLOGY EXAM - MAMMOGRAPHY (IMAGES ONLY, NO REPORT) (07/08/2015 10:05 AM EST) 07/08/2015 10:0 1 AM EST Narrative Scheduling, Silent - 07/24/2023 10:06 AM EDT This is an imaging study not interpreted or resulted by a [facility] or [facility] contracted radiologist. Any Gutierrez MD RAD MAMMOGRAPHY documented in this encounter
--- OUTSIDE RECORDS SUMMARY | 2023-11-22 10:28 | External Medical Summary ---
Author Name Unknown Address Unknown Organization [id number][facility] - [address] [place] [address] Laboratory Report Ordering Provider Test Date Status DARIANA YADAV 07/19/2023 14:39:25 Final Observation Date Value Abnormality Reference (Units ) Status Folic Acid 07/19/2023 14:39:25 6.8 >4.5 (ng/ mL) Final Performing Location [facility] - [address] [place] [address]
--- OUTSIDE RECORDS SUMMARY | 2023-11-22 10:28 | External Medical Summary | Summary of Care ---
Author Name Unknown Organization [facility] Address [address] [place] [address] Phone [phone] Care Team Providers Care Die Inspector Name Role Phone Any Gutierrez MD Primary Care Provider Reason for Visit * Reason Onset Date Comments Appointment 07/23/2023 Encounter Details Date Type Department Care Team (Late st Contact Info) Description 07/23/2023 Telephone Family Practice [facility] [address] [facility] [place] [address] Any Gutierrez MD [address] [place] [address] Appointment (/) Allergies Active Allergy Reactions Criticality Noted Date Comments Sulfamethoxazole-Trimethoprim Anaphylaxis High 07/18 Latex Hives 07/19/2023 documented as of this encounter (statuses as of 07/23/2023) Medications Medication Sig Dispensed Refills Start Date [...] as of this encounter (statuses as of 07/23/2023) Active Problems Problem Noted Date Diagnosed Date Hypertension goal BP (blood pressure) < 140/90 0 07/19/2023 Type 2 diabetes mellitus wit h hemoglobin A1c goal of less than 7.0% 07/19/2023 Bipolar 1 disorder 07/19/2023 S/P gastric sleeve procedure 07/19/2023 CJ on CPAP 07/19/2023 documented as of this encounter (statuses as of 07/23/2023) Social History Tobacco Use Types Packs/Day Years Used Date Smoking Tobacco: Never Smokeless Tobacco: Never Sex and Gender Information Value Date Recorded Sex Assigned at Not on file Gender Identity Not on file Sexual Orientation Not on file Job Start Date Occupation Industry Not on file Not on file Not on file documented as of this encounter Miscellaneous Notes * Telephone Encounter - Jacquelin Hernandez OSA - 07/23/2023 12:24 PM EDT Pt needs to schedule with Sleep Medicine Diagnosis: CJ on CPAP [G47.33] LMOM 07/23/2023 RMK documented in this encounter Plan of Treatment Upcoming Encounters Date Type Department Care Team (Late st Contact Info) Description 07/25/2023 8:45 AM EDT Imaging Radiology [address] [facility] [place] [address] 08/31/2023 10:40 AM EDT Office Visit Family Practice [facility] [address] [facility] [place] [address] Any Gutierrez MD [address] [facility] [place] [address] Health Maintenance Due Date Last Done Comments [...] 12/12/2011 COVID-19 Vaccine (2022-2 4 season) 2023 Influenza Vaccine (FLU shot) [...] filedocumented as of this encounter Care Teams Die Inspector Relationship Specialty Start Date End Date Any Gutierrez MD [address] [place] [address] PCP - General Family Medicine 07/19/23 documented as of this encounter
--- OUTSIDE RECORDS SUMMARY | 2023-11-22 10:28 | External Medical Summary ---
Author Name Unknown Address Unknown Organization [id number] [place] [address] [place] [address] Laboratory Report Ordering Provider Test Date Status DARIANA YADAV 07/19/2023 14:39:25 Final Observation Date Value Abnormality Reference (Units ) Status Vitamin B12 07/19/2023 14:39:25 [phone] (pg/mL) Final Performing Location [facility] - [address] [place] [address]
--- OUTSIDE RECORDS SUMMARY | 2023-11-22 10:28 | External Medical Summary ---
Author Name Unknown Address Unknown Organization [id number][facility] [place] [address] [facility] [address] Laboratory Report Ordering Provider Test Date Status DARIANA YADAV 07/19/2023 14:39:25 Final Observation Date Value Abnormality Reference (Units ) Status HbA1C 07/19/2023 14:39:25 5.5 4.0-5.6 (% ) Final The use of HbA1c to monitor glycemic status is based on normal hemoglobin and HbA composition. This test should not be used in patients with abnormal hemoglobin that affects the half life of the red blood cell or the in vivo glycation rates. Glucose, estimated average 07/19/2023 14:39:25 111 <126 (mg/dL) Final Performing Location [facility] [place] [address] [facility] [address]
--- OUTSIDE RECORDS SUMMARY | 2023-11-22 10:28 | External Medical Summary ---
Author Name Unknown Address Unknown Organization [id number] [place] [address] [facility] [address] Laboratory Report Ordering Provider Test Date Status OSVALDO YADAVY 07/19/2023 14:39:25 Final Observation Date Value Abnormality Reference (Units ) Status Triglyceride 07/19/2023 14:39:25 80 <=174 ( mg/dL) Final Triglyceride Reference Range s (mg/dL):
<150 Acceptable
150-174 Borderline high
175-499 High
>=500 Very high Cholesterol 07/19/2023 14:39:25 198 <200 (mg /dL) Final Total Cholesterol Reference Ranges (mg/dL):
<200 Desirable
200-239 Borderline high
>=240 High HDL 07/19/2023 14:39:25 65 >49 (mg/dL ) Final HDL Cholesterol Reference Ra nges (mg/dL):
>=60 High (Desirable)
<50 Low (Undesirable) For Females
<40 Low (Undesirable) For Males NON-HDL CHOLESTEROL 07/19/2023 14:39:25 133 <=159 (mg/dL) Final Non-HDL Cholesterol Referenc e Range (mg/dL):
<100 Target level for high risk ASCVD patient
<130 Optimal for general population
130-159 Near optimal for general population
160-189 Borderline High
190-219 High
>=220 Very High LDL, (calculated) 07/19/2023 14:39:25 117 <= 129 (mg/dL) Final LDL Cholesterol Reference Ra nges (mg/dL):
<70 Target level for high risk ASCVD patient
<100 Optimal for general population
100-129 Near optimal for general population
130-159 Borderline high
160-189 High
>=190 Very high Performing Location [facility] [place] [address] [facility] [address]
--- OUTSIDE RECORDS SUMMARY | 2023-11-22 10:28 | External Medical Summary ---
Author Name Unknown Address Unknown Organization K09:[facility] [place] [address] Laboratory Report Ordering Provider Test Date Status DARIANA YADAV 07/19/2023 14:39:25 Final Observation Date Value Abnormality Reference (Units ) Status WBC, Total 07/19/2023 14:39:25 6.67 4.00-10.8 0 (K/uL) Final RBC 07/19/2023 14:39:25 3.98 3.85-5.15 (M/uL) Final Hemoglobin 07/19/2023 14:39:25 11.4 Below low normal 12 .0-15.3 (g/dL) Final HCT 07/19/2023 14:39:25 36.0 36.0-45.2 (%) Final MCV 07/19/2023 14:39:25 90.5 81.5-97.5 (fL) Final MCH 07/19/2023 14:39:25 28.6 27.0-34.0 (pg) Final MCHC 07/19/2023 14:39:25 31.7 32.0-36.0 (g/dL) Final RDW 07/19/2023 14:39:25 13.7 11.5-15.5 (%) Final Platelets 07/19/2023 14:39:25 277 140-400 (K /uL) Final MPV 07/19/2023 14:39:25 10.6 6.6-11.1 ( fL) Final Performing Location [facility] [place] [address]
--- OUTSIDE RECORDS SUMMARY | 2023-11-22 10:28 | External Medical Summary | Summary of Care ---
Author Name Unknown Organization [facility] Address [address] [place] [address] Phone [phone] Care Team Providers Care Felting Machine Operator Name Role Phone Unavailable Primary Care Provider Unavailabl e Encounter Details Date Type Department Care Team (Latest Contact Info) Description 06/02/2015 11:20 AM EST - 06/02/2015 11:59 PM EST Hospital Encounter Radiology Film File [address] [place] [address] Discharge Disposition: Home - Self [...] EDT Office Visit Family Practice [place] [place] [address] [place], [place] [address] Any Gutierrez MD [address] [place], [place] [address] Health Maintenance Due Date Last Done Comments [...] - MAMMOGRAPHY (IMAGES ONLY, NO REPORT) Routine 06/02/2015 11:20 AM EST documented in this encounter Results * RADIOLOGY EXAM - MAMMOGRAPHY (IMAGES ONLY, NO REPORT) (06/02/2015 11:20 AM EST) 06/02/2015 11:1 5 AM EST Narrative Scheduling, Silent - 07/24/2023 10:06 AM EDT This is an imaging study not interpreted or resulted by a [facility] or [facility] contracted radiologist. Any Gutierrez MD RAD MAMMOGRAPHY documented in this encounter
--- OUTSIDE RECORDS SUMMARY | 2023-11-22 10:28 | External Medical Summary ---
Author Name Unknown Address Unknown Organization : Laboratory Report Ordering Provider Test Date Status DARIANA YADAV 07/19/2023 14:39:25 Final Observation Date Value Abnormality Reference (Units ) Status Thiamine [Moles/volume] in Blood 07/19/2023 14:39:25 92 78-185 (nmol/L) Final Vitamin supplementation with in 24 hours prior to
blood draw may affect the accuracy of the results.
This test was developed and its analytical performance
characteristics have been determined by [facility] [place], [place]. It has
not been cleared or approved by the U.S. Food and Drug
Administration. This assay has been validated pursuant
to the CLIA regulations and is used for clinical
purposes.

Test Performed at:
[email or web address]
[address] [facility]
[place] [address]
Remy Peralta M.D., Ph.D.,Director of Laboratories Performing Location
--- OUTSIDE RECORDS SUMMARY | 2023-11-22 10:28 | External Medical Summary | Summary of Care ---
Author Name Unknown Organization [facility] Address [address] [place] [address] Phone [phone] Care Team Providers Care Direct Marketing Specialist Name Role Phone Unavailable Primary Care Provider Unavailabl e Encounter Details Date Type Department Care Team (Latest Contact Info) Description 01/13/2011 9:30 AM EDT - 01/13/2011 11:59 PM EDT Hospital Encounter Radiology Film File [address] [place] [address] Discharge Disposition: Home - Self [...] EDT Office Visit Family Practice [facility] [place] 200 [facility] [place], [place] [address] Any Gutierrez MD 200 [facility] [place] [address] Health Maintenance Due Date Last Done Comments [...] - MAMMOGRAPHY (IMAGES ONLY, NO REPORT) Routine 01/13/2011 9:30 AM EDT documented in this encounter Results * RADIOLOGY EXAM - MAMMOGRAPHY (IMAGES ONLY, NO REPORT) (01/13/2011 9:30 AM EDT) 01/13/2011 9:29 AM EDT Narrative Scheduling, Silent - 07/24/2023 10:01 AM EDT This is an imaging study not interpreted or resulted by a [facility] or [facility] radiologist. Any Gutierrez MD RAD MAMMOGRAPHY documented in this encounter
--- OUTSIDE RECORDS SUMMARY | 2023-11-22 10:28 | External Medical Summary | Summary of Care ---
Author Name Unknown Organization [facility] Address [address] [place] [address] Phone [phone] Care Team Providers Care Supervisor Sound Technician Name Role Phone Unavailable Primary Care Provider Unavailabl e Encounter Details Date Type Department Care Team (Latest Contact Info) Description 06/04/2012 2:00 PM EST - 06/04/2012 11:59 PM EST Hospital Encounter Radiology Film File [address] [place] [address] Discharge Disposition: Home - Self [...] EDT Office Visit Family Practice [place] [place] [address] [place], [place] [address] Any Gutierrez MD [address] [place] [address] Health Maintenance Due Date Last Done Comments [...] - MAMMOGRAPHY (IMAGES ONLY, NO REPORT) Routine 06/04/2012 2:00 PM EST documented in this encounter Results * RADIOLOGY EXAM - MAMMOGRAPHY (IMAGES ONLY, NO REPORT) (06/04/2012 2:00 PM EST) 06/04/2012 1:59 PM EST Narrative Scheduling, Silent - 07/24/2023 10:00 AM EDT This is an imaging study not interpreted or resulted by a [facility] or [facility] radiologist. Any Gutierrez MD RAD MAMMOGRAPHY documented in this encounter
--- OUTSIDE RECORDS SUMMARY | 2023-11-22 10:28 | External Medical Summary ---
Author Name Unknown Address Unknown Organization K09:[facility] - [address] [place] [address] Laboratory Report Ordering Provider Test Date Status DARIANA YADAV 07/19/2023 14:39:25 Final Observation Date Value Abnormality Reference (Units ) Status BUN 07/19/2023 14:39:25 12 6-20 (mg/dL) Final Creatinine 07/19/2023 14:39:25 0.7 0.5-1.0 (mg/dL) Final Glomerular filtration rate/1.73 sq M.predicted [Volume Rate/Area] in Serum, Plasma or Blood by Creatinine-based formula (CKD-EPI) 07/19/2023 14:39:25 >90 >=60 (mL/min) Final eGFR is calculated based on the CKD-EPI 2020 equation SODIUM 07/19/2023 14:39:25 140 135-146 (m mol/L) Final Potassium 07/19/2023 14:39:25 4.5 3.5-5.1 (m mol/L) Final Cl 07/19/2023 14:39:25 101 98-107 (mm ol/L) Final CO2 07/19/2023 14:39:25 27 22-32 (mmo l/L) Final Anion gap 07/19/2023 14:39:25 12 7-15 (mmol /L) Final Glucose 07/19/2023 14:39:25 85 70-120 (mg /dL) Final Albumin 07/19/2023 14:39:25 4.5 3.8-5.0 (g /dL) Final AST (Aspartate aminotransferase) 07/19/2023 14:39:25 14 10-35 (U/L) Fin al Alk Phos 07/19/2023 14:39:25 105 35-130 (U/ L) Final Bilirubin, Total 07/19/2023 14:39:25 0.2 <=1 .2 (mg/dL) Final Calcium 07/19/2023 14:39:25 9.9 8.4-10.2 ( mg/dL) Final Protein 07/19/2023 14:39:25 7.6 6.0-8.3 (g /dL) Final ALT (Alanine aminotransferase) 07/19/2023 14:39:25 9 Below low normal 10-35 (U/L) Final Performing Location [facility] [address] [place] [address]
--- OUTSIDE RECORDS SUMMARY | 2023-11-22 10:28 | External Medical Summary | Summary of Care ---
Author Name Unknown Organization [facility] Address [address] [place] [address] Phone [phone] Care Team Providers Care Needle Grinder Name Role Phone Any Gutierrez MD Primary Care Provider [phone] Reason for Referral * Evaluate & Treat - Unlimited Visits (Within 30 days (routine)) - Pending Review Specialty Diagnoses / Procedures Referred By Viry gallego Referred To Contact Psychiatry Diagnoses Bipolar 1 disorder (HCC) Any Gutierrez MD [address] [place] [address] Referral ID Status Reason Start Date Expiration Date Visits Requested Visits Authorized [id number] Pending Review Specialty Services Required 07/19/[phone] Question Answer Referral Priority Within 30 days (routine) Where should this appointment be scheduled? [facility] Is this referral for medication management? Yes Reason for Referral Bipolar * Evaluate & Treat - Unlimited Visits (Within 30 days (routine)) - Pending Review Specialty Diagnoses / Procedures Referred By Viry gallego Referred To Contact Sleep Medicine / Sleep Disorders Diagnoses CJ on CPAP Any Gutierrez MD [address] [place] [address] Referral ID Status Reason Start Date Expiration Date Visits Requested Visits Authorized [id number] Pending Review Specialty Services Required 07/19/2023 2 2 Question Answer Referral Priority Within 30 days (routine) Where should this appointment be scheduled? [facility] Sleep Apnea Testing and Management Does the patient snore and/or gasp at night or has been told they stop breathing at night? Yes Reason for Visit * Reason Comments NEW PATIENT Encounter Details Date Type Department Care Team (Late st Contact Info) Description 07/19/2023 1:00 PM EDT Office Visit Family Practice [facility] [place] [address] Any Gutierrez MD [address] [facility] [place] [address] Hypertension goal BP (blood pressure) < 140/90*; Type 2 diabetes mellitus with hemoglobin A1c goal of less than 7.0% (HCC); Bipolar 1 disorder (HCC); S/P gastric sleeve procedure; CJ on CPAP; Encounter for screening mammogram for malignant neoplasm of breast Allergies Active Allergy Reactions Criticality Noted Date Comments Sulfamethoxazole-Trimethoprim Anaphylaxis High 07/18 Latex Hives 07/19/2023 documented as of this encounter (statuses as of 07/19/2023) Medications Medication Sig Dispensed Refills Start Date [...] as of this encounter (statuses as of 07/19/2023) Active Problems Problem Noted Date Diagnosed Date Hypertension goal BP (blood pressure) < 140/90 0 07/19/2023 Type 2 diabetes mellitus wit h hemoglobin A1c goal of less than 7.0% 07/19/2023 Bipolar 1 disorder 07/19/2023 S/P gastric sleeve procedure 07/19/2023 CJ on CPAP 07/19/2023 documented as of this encounter (statuses as of 07/19/2023) Social History Tobacco Use Types Packs/Day Years [...] Sign Reading Time Taken Comments Blood Pressure 138/80 07/19/2023 1:09 PM EDT Pulse 78 07/19/2023 1:09 PM EDT Temperature 36.3 C (97.4 F) 07/19/2023 1:09 PM ED T Respiratory Rate 16 07/19/2023 1:09 PM EDT Oxygen Saturation - - Inhaled Oxygen Concentration - - Weight 93.9 kg (207 lb 0.6 oz) 07/19/2023 1:09 P M EDT Height 167.6 cm (5' 6") 07/19/2023 1:09 PM EDT Body Mass Index 33.42 07/19/2023 1:09 PM EDT documented in this encounter Progress Notes * Any Gutierrez MD - 07/19/2023 1:30 PM EDT Subjective Chief Complaint Patient presents with NEW PATIENT HPI: Stephani Sales is a 62 year old female. Patient is unaccompanied. The following issues were addressed today: Patient presents to [facility]. Recently relocated from [place]. The patient's past medical history, surgical history, family history, social history, vaccination history, medications, and allergies were reviewed. Has hypertension, currently on amlodipine 5mg and losartan 100mg. Denies chest pain, shortness of breath, or edema. She does not check her blood pressure at home. Has bipolar I disorder and depression, currently on Latuda 40g and Seroquel 25mg at bedtime. Statesboth of these medications were started recently by her psychiatrist in [place]. Would like to reestablish locally. 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 States she was diagnosed with T2DM in the past but is not currently on treatment. Has CJ, on CPAP. Requesting referral to sleep medicine. S/p gastric sleeve. Lost about 200lb. Due for updated labs. States she just had a Cologuard test this year and it was normal. No longer needs Pap smears. Had a hysterectomy for heavy menstrual bleeding. Would like to schedulefor pelvic and breast exam. Review of Systems: See HPI Objective BP 138/80 | Pulse 78 | Temp 36.3 C (97.4 F) | Resp 16 | Ht 1.676 m (5' 6") | Wt 93.9 kg (207 lb0.6 oz) | BMI 33.42 kg/m | BSA 2.09 m Wt Readings from Last 3 Encounters: 07/19/23 93.9 kg (207 lb 0.6 oz) BP Readings from Last 3 Encounters: 07/19/23 138/80 General: Well-appearing, no acute distress Cardiovascular: Regular rate and rhythm, no murmur Respiratory: Good respiratory effort, breath sounds equal and clear to auscultation bilaterally Neurological: Alert and oriented, no focal deficits noted Psychiatric: Appropriate mood and affect, tangential speech Assessment & Plan 1. Hypertension goal BP (blood pressure) < 140/90 Well-controlled. Continue current medication(s). Update labs. - COMPREHENSIVE METABOLIC PANEL; Future 2. Type 2 diabetes mellitus with hemoglobin A1c goal of less than 7.0% (HCC) Update labs. - COMPREHENSIVE METABOLIC PANEL; Future - LIPID PANEL WITH DIRECT LDL IF TG IS HIGH; Future - HEMOGLOBIN A1C; Future - ALBUMIN / CREATININE RATIO, URINE; Future 3. Bipolar 1 disorder (HCC) Stable. Continue current medication(s). - ADULT/PEDS PSYCHIATRY REFERRAL OP 4. S/P gastric sleeve procedure Update labs. - CBC WITH WBC DIFFERENTIAL; Future - VITAMIN B12; Future - VITAMIN B1 (THIAMINE), BLOOD, LC/MS/MS; Future - FOLIC ACID; Future - 25-HYDROXY VITAMIN D; Future - IRON SCREEN, INCLUDING TIBC; Future 5. CJ on CPAP - SLEEP MEDICINE REFERRAL OP - CBC WITH WBC DIFFERENTIAL; Future 6. Encounter for screening mammogram for malignant neoplasm of breast - MAMMOGRAM SCREENING ALEKS BILATERAL; Future Follow Up: Return in about 6 weeks (around 08/30/2023) for well woman exam. Check-out note: Needs to sign records release. Labs today. Mammogram ordered. Psych and sleep medicine referrals This note was electronically signed by Any Gutierrez MD documented in this encounter Nursing Notes * Paz Virgen LPN - 07/19/2023 1:10 PM EDT Establish care documented in this encounter Plan of Treatment Upcoming Encounters Date Type Department Care Team (Late st Contact Info) Description 07/25/2023 8:45 AM EDT Imaging Radiology [address] [place] [address] 08/31/2023 10:40 AM EDT Office Visit [facility] [place] [address] Any Gutierrez MD [address] [facility] [place] [address] Pending Results Name Type Priority Associated Diagnoses Date /Time COMPREHENSIVE METABOLIC PANEL Lab Routine Hypertension goal BP (blood pressure) < 140/90 Type 2 diabetes mellitus with hemoglobin A1c goal of less than 7.0% ([facility]) 07/19/2023 2:39 PM EDT LIPID PANEL WITH DIRECT LDL IF TG IS HIGH Lab Routine Type 2 diabetes mellitus with hemoglobin A1c goal of less than 7.0% ([facility]) 07/19/2023 2:39 PM EDT HEMOGLOBIN A1C Lab Routine Type 2 diabetes mellitus with hemoglobin A1c goal of less than 7.0% ([facility]) 07/19/2023 2:39 PM EDT VITAMIN B12 Lab Routine S/P gastric sleeve procedure 07/19/2023 2:39 PM EDT VITAMIN B1 (THIAMINE), BLOOD, LC/MS/MS Lab Routine S/P gastric sleeve procedure 07/19/2023 2:39 PM EDT FOLIC ACID Lab Routine S/P gastric sleeve procedure 07/19/2023 2:39 PM EDT 25-HYDROXY VITAMIN D Lab Routine S/P gastric sleeve procedure 07/19/2023 2:39 PM EDT IRON SCREEN, INCLUDING TIBC Lab Routine S/P gastric sleeve procedure 07/19/2023 2:39 PM EDT Scheduled Orders Name Type Priority Associated Diagnoses Orde r Schedule MAMMOGRAM SCREENING ALEKS BILATERAL Medical Imaging Routine Encounter for screening mammogram for malignant neoplasm of breast Expected: 07/19/2023, Expires: 08/18/2024 COMPREHENSIVE METABOLIC PANEL Lab Routine Hypertension goal BP (blood pressure) < 140/90 Type 2 diabetes mellitus with hemoglobin A1c goal of less than 7.0% (HCC) Expected: 07/19/2023 (Approximate), Expires: 07/18/2024 LIPID PANEL WITH DIRECT LDL IF TG IS HIGH Lab Routine Type 2 diabetes mellitus with hemoglobin A1c goal of less than 7.0% (HCC) Expected: 07/19/2023 (Approximate), Expires: 07/18/2024 HEMOGLOBIN A1C Lab Routine Type 2 diabetes mellitus with hemoglobin A1c goal of less than 7.0% (HCC) Expected: 07/19/2023 (Approximate), Expires: 07/18/2024 ALBUMIN / CREATININE RATIO, URINE Lab Routine Type 2 diabetes mellitus with hemoglobin A1c goal of less than 7.0% (HCC) Expected: 07/19/2023 (Approximate), Expires: 07/18/2024 VITAMIN B12 Lab Routine S/P gastric sleeve procedure Expected: 07/19/2023 (Approximate), Expires: 07/18/2024 VITAMIN B1 (THIAMINE), BLOOD, LC/MS/MS Lab Routine S/P gastric sleeve procedure Expected: 07/19/2023, Expires: 07/18/2024 FOLIC ACID Lab Routine S/P gastric sleeve procedure Expected: 07/19/2023 (Approximate), Expires: 07/18/2024 25-HYDROXY VITAMIN D Lab Routine S/P gastric sleeve procedure Expected: 07/19/2023 (Approximate), Expires: 07/18/2024 IRON SCREEN, INCLUDING TIBC Lab Routine S/P gastric sleeve procedure Expected: 07/19/2023 (Approximate), Expires: 07/18/2024 Scheduled Referrals Name Type Priority Associated Diagnoses Orde r Schedule SLEEP MEDICINE REFERRAL OP Referral Within 30 days (routine) CJ on CPAP Ordered: 07/19/2023 ADULT/PEDS PSYCHIATRY REFERRAL OP Referral Within 30 days (routine) Bipolar 1 disorder (HCC) Ordered: 07/19/2023 Health Maintenance Due Date Last Done Comments GFR 1960 Lipid Panel 1960 HbA1c 12/12/1967 Pneumococcal Vaccine: Pediat rics (0 to 5 [...] 2023 Influenza Vaccine (FLU shot) (#1) 2023 GARDASIL-HPV IMMUNIZATION SERIES Aged Out No longer [...] disorder, most recent episode (or current) unspecified S/P gastric sleeve procedure CJ on CPAP Obstructive sleep apnea (adult) (pediatric) Encounter for screening mammogram for malignant neoplasm of breast Other screening mammogram documented in this encounter Care Teams Needle Grinder Relationship Specialty Start Date End Date Any Gutierrez MD [address] [place] [address] PCP - General Family Medicine 07/19/23 documented as of this encounter
--- OUTSIDE RECORDS SUMMARY | 2023-11-22 10:28 | External Medical Summary | Summary of Care ---
Author Name Unknown Organization [facility] Address [address] [place] [address] Phone [phone] Care Team Providers Care Class A Regional Drivers Name Role Phone Any Gutierrez MD Primary Care Provider [phone] Reason for Visit * Reason Onset Date Comments MyCode Consent 07/19/2023 Encounter Details Date Type Department Care Team (Late st Contact Info) Description 07/19/2023 Orders Only Outcomes Research Department [address] [place] [address] Jarod Chu CHRA MyCode Research Other*[id number]* Allergies Active Allergy Reactions Criticality Noted Date [...] as of this encounter Progress Notes * Jarod Chu CHRA - 07/19/2023 2:56 PM EDT MyCode Consent Documentation Stephani Sales provided consent/authorization to participate in the MyCode Project. documented in this encounter Plan of Treatment Upcoming Encounters Date Type Department Care Team (Late st Contact Info) Description 07/25/2023 8:45 AM EDT Imaging Radiology [address] 132 [facility] [place] [address] 08/31/2023 10:40 AM EDT Office Visit Family Practice [facility] 200 [facility] [place] [address] Any Gutierrez MD 200 [facility] [place] [address] Scheduled Orders Name Type Priority Associated Diagnoses Orde r Schedule MYCODE INITIAL ADULT Lab Routine My[facility] Research Other*[id number] Expected: 07/19/2023 (Approximate), Expires: 08/07/2024 Health Maintenance Due Date Last Done Comments [...] as of this encounter Visit Diagnoses Diagnosis MyCode Research Other*[id number]- Primary documented in this encounter Care Teams Class A Regional Drivers Relationship Specialty Start Date End Date Any Gutierrez MD [address] [place] [address] PCP - General Family Medicine 07/19/23 documented as of this encounter
--- OUTSIDE RECORDS SUMMARY | 2023-11-22 10:28 | External Medical Summary ---
Author Name Unknown Address Unknown Organization K01:[facility] [place] [address] [facility] [address] [place] [address] Laboratory Report Ordering Provider Test Date Status DARIANA YADAV 07/19/2023 14:39:25 Final Observation Date Value Abnormality Reference (Units ) Status Iron 07/19/2023 14:39:25 43 33-151 (ug/dL) Final Iron-binding capacity 07/19/2023 14:39:25 333 250-425 (ug/dL) Final Transferrin Sat % 07/19/2023 14:39:25 13 Below low normal 15-55 (%) Final Performing Location LABORATORY [facility] - [address] [place] [address]
--- OUTSIDE RECORDS SUMMARY | 2023-11-22 10:28 | External Medical Summary | Summary of Care ---
Author Name Unknown Organization [facility] Address [address] [place] [address] Phone [phone] Care Team Providers Care General Accounting Manager Name Role Phone Unavailable Primary Care Provider Unavailabl e Encounter Details Date Type Department Care Team (Latest Contact Info) Description 06/02/2015 11:15 AM EST - 06/02/2015 11:19 AM EST Hospital Encounter Radiology Film File [address] [place] [address] Discharge Disposition: Home - Self [...] EDT Office Visit Family Practice [place] [place] [address] [place], [place] [address] Any Gutierrez MD [address] [place], [place] [address] Health Maintenance Due Date Last Done Comments [...] MAMMOGRAPHY (IMAGES ONLY, NO REPORT) Routine 06/02/2015 11:15 AM EST documented in this encounter Results * RADIOLOGY EXAM - MAMMOGRAPHY (IMAGES ONLY, NO REPORT) (06/02/2015 11:15 AM EST) 06/02/2015 11:1 5 AM EST Narrative Scheduling, Silent - 07/24/2023 10:04 AM EDT This is an imaging study not interpreted or resulted by a [facility] or [facility] contracted radiologist. Any Gutierrez MD RAD MAMMOGRAPHY documented in this encounter
--- OUTSIDE RECORDS SUMMARY | 2023-11-22 10:28 | External Medical Summary | Summary of Care ---
Author Name Unknown Organization [facility] Address [address] [place] [address] Phone [phone] Care Team Providers Care Dope Firer Name Role Phone Unavailable Primary Care Provider Unavailabl e Encounter Details Date Type Department Care Team (Latest Contact Info) Description 07/01/2013 11:00 AM EST - 07/01/2013 11:59 PM EST Hospital Encounter Radiology Film File [address] [place] [address] Discharge Disposition: Home - Self [...] EDT Office Visit Family Practice [place] [place] [address] [place], [place] [address] Any Gutierrez MD [address] [place], [place] [address] Health Maintenance Due Date Last Done Comments [...] - MAMMOGRAPHY (IMAGES ONLY, NO REPORT) Routine 07/01/2013 11:00 AM EST documented in this encounter Results * RADIOLOGY EXAM - MAMMOGRAPHY (IMAGES ONLY, NO REPORT) (07/01/2013 11:00 AM EST) 07/01/2013 10:5 9 AM EST Narrative Scheduling, Silent - 07/24/2023 10:07 AM EDT This is an imaging study not interpreted or resulted by a [facility] or [facility] contracted radiologist. Any Gutierrez MD RAD MAMMOGRAPHY documented in this encounter
--- OUTSIDE RECORDS SUMMARY | 2023-11-22 10:28 | External Medical Summary | Summary of Care ---
Author Name Unknown Organization [facility] Address [address] [place] [address] Phone [phone] Care Team Providers Care Promotions Representative Name Role Phone Any Gutierrez MD Primary Care Provider [phone] Reason for Visit * Reason Comments Outpatient Testing Encounter Details Date Type Department Care Team (Late st Contact Info) Description 07/19/2023 3:10 PM EDT Laboratory Laboratory [facility] [place] [address] [place] [address] [facility] [address] [place] [address] Hypertension goal BP (blood pressure) < 140/90; Type 2 diabetes mellitus with hemoglobin A1c goal of less than 7.0% ([facility]); S/P gastric sleeve procedure; CJ on CPAP Allergies Active Allergy Reactions Criticality Noted Date [...] Description 07/25/2023 8:45 AM EDT Imaging Radiology [address] 132 [facility] [place] [address] 08/31/2023 10:40 AM EDT Office Visit Family Practice [facility] 200 [facility] [place] [address] Any Gutierrez MD 200 [facility] [place] [address] Pending Results Name Type Priority Associated Diagnoses Date /Time COMPREHENSIVE METABOLIC PANEL Lab Routine Hypertension goal BP (blood pressure) < 140/90 Type 2 diabetes mellitus with hemoglobin A1c goal of less than 7.0% ([facility]) 07/19/2023 2:39 PM EDT LIPID PANEL WITH DIRECT LDL IF TG IS HIGH Lab Routine Type 2 diabetes mellitus with hemoglobin A1c goal of less than 7.0% ([facility]) 07/19/2023 2:39 PM EDT HEMOGLOBIN A1C Lab Routine Type 2 diabetes mellitus with hemoglobin A1c goal of less than 7.0% ([facility]) 07/19/2023 2:39 PM EDT VITAMIN B12 Lab [...] gastric sleeve procedure 07/19/2023 2:39 PM EDT Health Maintenance Due Date Last Done [...] Procedure Name Priority Date/Time Associated Diagnosis Comments DIFFERENTIAL, AUTOMATED Routine 07/19/2023 2:39 PM EDT S/P gastric sleeve procedure CJ on CPAP CBC Routine 07/19/2023 2:39 PM EDT S/P gastric sleeve procedure CJ on CPAP CBC Routine 07/19/2023 2:39 PM EDT S/P gastric sleeve procedure CJ on CPAP documented in this encounter Results * DIFFERENTIAL, AUTOMATED (07/19/2023 2:39 PM EDT) WBC 6.67 4.00 - 10.80 K/uL 07/19/2023 2:44 PM EDT [facility] Neutrophils % 52.2 40.0 - 75.0 % 07/19/2023 2:44 PM EDT [facility] Lymphocytes % 32.5 18.0 - 42.0 % 07/19/2023 2:44 PM EDT [facility] Monocytes % 9.0 1.0 - 11.0 % 07/19/2023 2:44 PM EDT [facility] Eosinophils % 6.0 0.0 - 6.0 % 07/19/2023 2:44 PM EDT [facility] Basophils % 0.3 0.0 - 2.0 % 07/19/2023 2:44 PM EDT [facility] Absolute Neutrophils 3.48 1.80 - 7.70 K/uL 07/19/2023 2:44 PM EDT [facility] Absolute Lymphocytes 2.17 1.00 - 4.80 K/ul 07/19/2023 2:44 PM EDT [facility] Absolute Monocytes 0.60 0.00 - 1.10 K/uL 07/19/2023 2:44 PM EDT [facility] Absolute Eosinophils 0.40 0.00 - 0.70 K/uL 07/19/2023 2:44 PM EDT [facility] Absolute Basophils 0.02 0.00 - 0.20 K/uL 07/19/2023 2:44 PM EDT [facility] Blood Venous blood specimen / Unknown Venipuncture / Unknown 07/19/2023 2:39 PM EDT 07/19/2023 2:39 PM EDT Any Gutierrez MD LAB BLOOD ORDERABLES [facility] [place] [address] * (ABNORMAL) CBC (07/19/2023 2:39 PM EDT) WBC 6.67 4.00 - 10.80 K/uL 07/19/2023 2:44 PM EDT [facility]- RBC 3.98 3.85 - 5.15 M/uL 07/19/2023 2:44 PM EDT [facility] 56 HGB 11.4(L) 12.0 - 15.3 g/dL 07/19/2023 2:44 PM EDT [facility] 56 HCT 36.0 36.0 - 45.2 % 07/19/2023 2:44 PM EDT [facility] 56 MCV 90.5 81.5 - 97.5 fL 07/19/2023 2:44 PM EDT [facility] 56 MCH 28.6 27.0 - 34.0 pg 07/19/2023 2:44 PM EDT [facility] 56 MCHC 31.7 32.0 - 36.0 g/dL 07/19/2023 2:44 PM EDT [facility] 56 RDW 13.7 11.5 - 15.5 % 07/19/2023 2:44 PM EDT [facility] 56 PLT 277 140 - 400 K/uL 07/19/2023 2:44 PM EDT [facility] 56 MPV 10.6 6.6 - 11.1 fL 07/19/2023 2:44 PM EDT [facility] 56 Blood Venous blood specimen / Unknown Venipuncture / Unknown 07/19/2023 2:39 PM EDT 07/19/2023 2:39 PM EDT Any Gutierrez MD LAB BLOOD ORDERABLES [facility] [address] [place] [address] documented in this encounter Visit Diagnoses Diagnosis Hypertension goal BP (blood pressure) < 140/90 Unspecified essential hypertension Type 2 diabetes mellitus with hemoglobin A1c goal of less than 7.0% ([facility]) S/P gastric sleeve procedure CJ on CPAP Obstructive sleep apnea (adult) (pediatric) documented in this encounter Care Teams Promotions Representative Relationship Specialty Start Date End Date Any Gutierrez MD [address] [place] [address] PCP - General Family Medicine 07/19/23 documented as of this encounter
--- OUTSIDE RECORDS SUMMARY | 2023-11-22 10:28 | External Medical Summary | Summary of Care ---
Author Name Unknown Organization [facility] Address [address] [place] [address] Phone [phone] Care Team Providers Care Senior Linux Unix Engineer Name Role Phone Any Gutierrez MD Primary Care Provider [phone] Reason for Visit * Reason Onset Date Comments Appointment 07/23/2023 Encounter Details Date Type Department Care Team (Late st Contact Info) Description 07/23/2023 Telephone Family Practice [facility] 200 [facility] [place] [address] [facility]rez MD [facility] [address] Appointment Allergies Active Allergy Reactions Criticality Noted [...] Encounter - Jacquelin Hernandez OSA - 07/23/2023 8:54 AM EDT Pt needs to schedule ADULT/PEDS PSYCHIATRY REFERRAL OP [[id number]] (Order [id number]) Diagnosis: Bipolar 1 disorder (HCC) [F31.9] Please contact pt to schedule appointment Thank You documented in this encounter Plan of Treatment Upcoming Encounters Date Type Department Care Team (Late st Contact Info) Description 07/25/2023 8:45 AM EDT Imaging Radiology [address] 132 [facility] [place] [address] 08/31/2023 10:40 AM EDT Office Visit Family Practice [facility] 200 [facility] [place] [address] Any Gutierrez MD 200 [facility] [place] [address] Health Maintenance Due Date Last Done Comments [...] filedocumented as of this encounter Care Teams Senior Linux Unix Engineer Relationship Specialty Start Date End Date Any Gutierrez MD [address] [place] [address] PCP - General Family Medicine 07/19/23 documented as of this encounter
--- OUTSIDE RECORDS SUMMARY | 2023-11-22 10:28 | External Medical Summary ---
Author Name Unknown Address Unknown Organization K01:LABORATORY [facility] [place] - [address] [place] [address] Laboratory Report Ordering Provider Test Date Status DARIANA YADAV 07/19/2023 14:39:25 Final Deficient: <20 ng/mL
Ins ufficient: 20-29 ng/mL
Recommended/Optimum:30-50 ng/mL

Vitamin D intoxication is rare. If suspicious of Vitamin D toxicity, evaluation of serum Calcium and PTH is recommended. Observation Date Value Abnormality Reference (Units ) Status 25-OH Vitamin D total 07/19/2023 14:39:25 22 >19 (ng/mL) Final Performing Location LABORATORY [facility] - [address] [place] [address]
--- OUTSIDE RECORDS SUMMARY | 2023-11-22 10:28 | External Medical Summary | Summary of Care ---
Author Name Unknown Organization [facility] Address [address] [facility] [place] [place] [address] Phone [phone] Care Team Providers Care Dopster Name Role Phone Any Gutierrez MD Primary Care Provider [phone] Encounter Details Date Type Department Care Team (Late st Contact Info) Description 07/20/2023 Orders Only PATIENT PORTAL DO NOT DELETE THIS DEPT USED BY LIZ RAMIREZ [id number] Allergies Active Allergy Reactions Criticality Noted Date Comments Sulfamethoxazole-Trimethoprim Anaphylaxis High 07/18 Latex Hives 07/19/2023 documented as of this encounter (statuses as of 07/20/2023) Medications Medication Sig Dispensed Refills Start Date [...] as of this encounter (statuses as of 07/20/2023) Active Problems Problem Noted Date Diagnosed Date Hypertension goal BP (blood pressure) < 140/90 0 07/19/2023 Type 2 diabetes mellitus wit h hemoglobin A1c goal of less than 7.0% 07/19/2023 Bipolar 1 disorder 07/19/2023 S/P gastric sleeve procedure 07/19/2023 CJ on CPAP 07/19/2023 documented as of this encounter (statuses as of 07/20/2023) Social History Tobacco Use Types Packs/Day Years [...] Description 07/25/2023 8:45 AM EDT Imaging Radiology [address] [facility] [place] [address] 08/31/2023 10:40 AM EDT Office Visit Family Practice [facility] [address] [facility] [address] [place] [address] Any Gutierrez MD [address] [facility] [place] [address] Health Maintenance Due Date Last Done Comments [...] 2023 Influenza Vaccine (FLU shot) (#1) 2023 HbA1c 01/19/2024 07/19/2023 GFR 07/18/2024 07/19/2023 Lipid [...] filedocumented as of this encounter Care Teams Dopster Relationship Specialty Start Date End Date Any Gutierrez MD [address] [place] [address] PCP - General Family Medicine 07/19/23 documented as of this encounter
--- NOTE | 2023-11-22 18:02 | Communication Note ---
Date of Service: November 22, 2023 Patient was seen and examined at bedside. Admitted earlier today. Feels much better with resolution of her symptoms. Has possible lyme disease/carditis and improving on ceftriaxone/doxy for positive lyme screen pending confirmatory results. Labs otherwise stable. Vitals stable. CT A/P with no acute abnormality. Echo unremarkable. Cardio following. On tele. Will follow up in am with detailed note and final cardio recommendations.
[2023-11-22] MEDS: MICONAZOLE NITRATE 2% VAG CR 45 GM TUBE PV SCH (18:24)
--- NOTE | 2023-11-23 16:42 | Cardiology Progress Note ---
Date of Service November 23, 2023 Assessment & Plan (1) Positive Lyme disease serology: (2) Atrioventricular block, Mobitz type 1, Wenckebach: (3) Abdominal pain: (4) Hypertension: Plan Assessment: 62 year-old female with no prior history of conduction disease presents for abdominal pain, profound fatigue and feelings of "slow heart rates". Plan: -It is difficult to discern if the Mobitz type I second-degree AV block is related to subacute Lyme infection or other. Patient does have sleep apnea and utilizes positive pressure ventilation. If her Lyme test has been negative, I would recommend discharge and outpatient observation at this time, however with the Lyme IgG positive, IgG negative status, recommend ongoing telemetry observation and treatment with ceftriaxone. Patient agreeable to plan. [facility] Admission and Anticipated Discharge Date Admission Date: November 22, 2023 Subjective Pt seen in follow up. Feels much improved today. More energy. Rested well last night. She has been walking in the hallway without difficulty. No syncope, no near syncope. On telemetry, episodes of type I second-degree AV block open (we can block block) noted overnight, and at around 5 AM this morning, during sleep. Results & Data Vital Signs (Past 12 Hours) Vital Signs Temp Pulse Resp BP Pulse Ox O2 Del Method 11/23/23 14:35 36.7 C 82 18 119/60 100 Room Air
[2023-11-23] MEDS: ONDANSETRON INJ 2 MG/ML 2 ML VIAL IV PRN (23:49)
[2023-11-24] MEDS: ACETAMINOPHEN 325 MG TAB PO PRN (02:00)
[2023-11-24 07:30] LABS: Basophils # (auto) 0.02 K/uL (0.00-0.20); Basophils % (auto) 0.3 %; Eosinophils # (auto) 0.31 K/uL (0.00-0.50); Eosinophils % (auto) 5.2 %; Hematocrit (blood only) 37.7 % (37.0-47.0); Immature Granulocytes # (auto) 0.01 K/uL (0.01-0.20); Immature Granulocytes % (auto) 0.2 %; Lymphocytes # (auto) 1.96 K/uL (1.20-3.40); Lymphocytes % (auto) 33.1 %; Mean Corpuscular Hemoglobin 28.8 pg (25.0-34.0); Mean Corpuscular Hgb Conc 31.8 g/dL (32.0-36.0); Mean Corpuscular Volume 90.6 fL (80.0-100.0); Mean Platelet Volume 11.6 fL (9.4-12.4); Monocytes # (auto) 0.49 K/uL (0.11-0.59); Monocytes % (auto) 8.3 %; Neutrophils # (auto) 3.14 K/uL (1.40-6.50); Neutrophils % (auto) 52.9 %; Platelet Count 297 K/uL (130-400); RDW Coefficient of Variation 13.2 % (11.5-14.5); RDW Standard Deviation 43.9 fL (36.4-46.3); Red Blood Count 4.16 M/uL (4.20-5.40); White Blood Count 5.93 K/ul (4.8-10.8)
[2023-11-24 09:44] LABS: Estimated Average Glucose 114 mg/dl; Hemoglobin A1C 5.6 % (4.5-5.6)
[2023-11-24 10:29] LABS: Calcium 9.6 mg/dl (8.6-10.3); Magnesium 1.9 mg/dl (1.7-2.4); Potassium 4.1 mmol/L (3.5-5.1)
[2023-11-24 10:35] LABS: BUN Creatinine Ratio 14.3 (10-20); Creatinine Clr Calc Pharmacy 107.2 ml/min; Est GFR (African American) 112.2 ml/min; Est GFR (Non-African American) 96.8 ml/min
--- NOTE | 2023-11-24 14:52 | Cardiology Progress Note ---
Date of Service November 24, 2023 Assessment & Plan (1) Atrioventricular block, Mobitz type 1, Wenckebach: (2) Positive Lyme disease serology: Plan * Patient with asymptomatic episodes of Wenckebach block during sleep last night. * SR in 70s noted while awake. * Pt stable for discharge, would complete day course of oral doxycycline. * Follow up with [facility] Cardiology within a month. * Pt counseled to be vigilant for symptoms suggestive of symptomatic bradycardia, such as lightheadedness, dizziness, syncope, near syncope. Admission and Anticipated Discharge Date Admission Date: November 22, 2023 Subjective Patient feels well. No complaints. Had headache overnight. Noted straps of CPAP mask may have been to tight. Physical Exam Constitutional: WD/WN, vitals as above Eyes: PERRL, conjunctivae normal, anicteric sclerae Respiratory: normal respiratory effort, lungs clear to auscultation Cardiovascular: RRR, no murmur, no edema Gastrointestinal (Abdomen): normal bowel sounds, soft, nontender, no hepatosplenomegaly Neurologic: PERRL, EOMI, accommodation nl, no face palsy, no dysarthria Results & Data Vital Signs (Past 12 Hours) Vital Signs Temp Pulse Pulse Resp BP Pulse Ox O2 Del Method 11/24/23 11:00 36.6 C 74 18 123/54 L 96 Room Air 11/24/23 07:00 36.5 C 88 16 131/54 L 95 Room Air 11/24/23 04:08 62 15 98 11/24/23 03:59 36.6 C 73 18 131/70 99 CPAP FiO2 11/24/23 11:00 11/24/23 07:00 11/24/23 04:08 21 11/24/23 03:59
--- NOTE | 2023-11-24 15:02 | Discharge Summary ---
Date of Service November 24, 2023 Admission HPI Per Admitting Provider 62-year-old female with past medical history significant for type 2 diabetes, obstructive sleep apnea on BIPAP, hypertension, depression ,bipolar 1 disorder, s/p gastric sleeve procedure comes in because of abdominal pain. Patient says lately having constipation. Using stool softener. Last night had severe abdominal pain which prompted her to come to the ER. Currently abdominal pain got resolved but EKG showed stable Mobitz type 1 heart block. Patient states she was told couple of weeks ago to stop bipap as she no longer has sleep apnea. But then patient felt weak and slow she restarted herself BiPAP last week and seems topped her psychiatric meds. Says she has feeling of strain in her heart and thinks its from not using bipap while sleeping.She has some feeling of straining of heart now. Denies any fevers. No shortness of breath. No nausea. No headache. No blurred vision. No runny nose or sore throat. No cough. Normal micturition. No fevers. Hemodynamics are okay. She is from [facility] and recently moved to [place]. Past medical history. As mentioned above past surgical history. Left breast biopsy. Gastric bypass for obesity. Reduction of breast. Abortions. Hysterectomy with removal of ovaries. Social history. Remote history of smoking.. No alcohol use. drug use. Family history. Father from seizures. Mother had a pacemaker. Brother and sister on dialysis. Admission Exam Per Admitting Provider General- Not in distress Head- atraumatic Eyes- PERRL. ENT- oropharynx clear Neck- supple, no JVD. Lungs- clear to auscultation no wheezing or crackles. Heart- regular rhythm; no murmur, no gallop. Abdomen- normal bowel sounds, soft, nontender, no distension. Extremities- no pretibial edema, no erythema seen Neuro- alert, oriented PERRL, no facial palsy; no dysarthria; moves extremities Principal Diagnosis Suspected lyme disease, Mobitz type 1 heart block Discharge Exam General: Sitting comfortably in bed, not in distress, on room air HEENT: EOMI, MC, MMM Chest: Clear breath sounds bilaterally, no wheezes or crackles CVS: Regular rate and rhythm, normal heart sounds, no murmur Abdomen: Soft, non tender, not distended, normal bowel sounds Neuro: Awake, alert, oriented, conversing well, non focal Extremities: No cyanosis, clubbing or edema Discharge Data Allergies Allergy/AdvReac Type Severity Reaction Status Date / Time latex Allergy Severe RESP Verified 11/22/23 01:54 DISTRESS/HIVES sulfamethoxazole Allergy Severe RESP Verified 11/22/23 01:54 [From Bactrim] DISTRESS/HIVES theophylline [From Rony-Dur] Allergy Severe RESP Verified 11/22/23 01:54 DISTRESS/HIVES trimethoprim [From Bactrim] Allergy Severe RESP Verified 11/22/23 01:54 DISTRESS/HIVES Consultations 11/22/23 03:02 ED Decision to Admit Stat 11/22/23 08:39 Consult Cardiology Routine Ordered Studies 11/22/23 01:32 CT abd pelvis IV con only Stat Laboratory Results WBC 5.93 K/ul (4.8-10.8) 11/24/23 06:49 RBC 4.16 M/uL (4.20-5.40) L 11/24/23 06:49 Hgb 12.0 g/dl (12.0-16.0) 11/24/23 06:49 Hct 37.7 % (37.0-47.0) 11/24/23 06:49 MCV 90.6 fL (80.0-100.0) 11/24/23 06:49 MCH 28.8 pg (25.0-34.0) 11/24/23 06:49 MCHC 31.8 g/dL (32.0-36.0) L 11/24/23 06:49 RDW Std Deviation 43.9 fL (36.4-46.3) 11/24/23 06:49 RDW Coeff of Albina 13.2 % (11.5-14.5) 11/24/23 06:49 Plt Count 297 K/uL (130-400) 11/24/23 06:49 MPV 11.6 fL (9.4-12.4) 11/24/23 06:49 Immature Gran % (Auto) 0.2 % 11/24/23 06:49 Neut % (Auto) 52.9 % 11/24/23 06:49 Lymph % (Auto) 33.1 % 11/24/23 06:49 [place] % (Auto) 8.3 % 11/24/23 06:49 Eos % (Auto) 5.2 % 11/24/23 06:49 Baso % (Auto) 0.3 % 11/24/23 06:49 Neut # (Auto) 3.14 K/uL (1.40-6.50) 11/24/23 06:49 Lymph # (Auto) 1.96 K/uL (1.20-3.40) 11/24/23 06:49 [place] # (Auto) 0.49 K/uL (0.11-0.59) 11/24/23 06:49 Eos # (Auto) 0.31 K/uL (0.00-0.50) 11/24/23 06:49 Baso # (Auto) 0.02 K/uL (0.00-0.20) 11/24/23 06:49 Immature Gran # (Auto) 0.01 K/uL (0.01-0.20) 11/24/23 06:49 Sodium 140 mmol/L (136-145) 11/24/23 06:49 Potassium 4.1 mmol/L (3.5-5.1) 11/24/23 06:49 Chloride 106 mmol/L (98-107) 11/24/23 06:49 Carbon Dioxide 25 mmol/L (21-32) 11/24/23 06:49 Anion Gap 9 (3-11) 11/24/23 06:49 BUN 9 mg/dl (6-23) 11/24/23 06:49 Creatinine 0.63 mg/dl (0.6-1.2) 11/24/23 06:49 Est Cr Clr Drug Dosing 107.2 ml/min 11/24/23 06:49 Est GFR ( Amer) 112.2 ml/min 11/24/23 06:49 Est GFR (Non-Af Amer) 96.8 ml/min 11/24/23 06:49 BUN/Creatinine Ratio 14.3 (10-20) 11/24/23 06:49 Glucose 92 mg/dl (70-99(Fasting)) 11/24/23 06:49 Estimat Average Glucose 114 mg/dl 11/24/23 06:49 Hemoglobin A1c 5.6 % (4.5-5.6) 11/24/23 06:49 Calcium 9.6 mg/dl (8.6-10.3) 11/24/23 06:49 Magnesium 1.9 mg/dl (1.7-2.4) 11/24/23 06:49 Total Bilirubin 0.4 mg/dl (0.2-1.0) 11/22/23 01:36 AST 18 U/L (13-39) 11/22/23 01:36 ALT 8 U/L (7-52) 11/22/23 01:36 Alkaline Phosphatase 66 U/L (34-104) 11/22/23 01:36 Troponin I High Sens 3.3 pg/ml (0-14) 11/22/23 14:09 Total Protein 7.4 gm/dl (6.0-8.3) 11/22/23 01:36 Albumin 4.1 gm/dl (3.4-5.0) 11/22/23 01:36 Globulin 3.3 gm/dl (2.5-4.0) 11/22/23 01:36 Albumin/Globulin Ratio 1.2 (0.9-2) 11/22/23 01:36 Lipase 42 U/L (11-82) 11/22/23 01:36 TSH 3.075 uIu/ml (0.300-4.500) 11/22/23 01:36 Urine Color Yellow 11/22/23 Unknown Urine Appearance Clear (Clear) 11/22/23 Unknown Urine pH 5.5 (4.5-7.5) 11/22/23 Unknown Ur Specific Lolo 1.029 (1.000-1.030) 11/22/23 Unknown Urine Protein Negative (Negative) 11/22/23 Unknown Urine Glucose (UA) Negative (Negative) 11/22/23 Unknown Urine Ketones Trace (Negative) H 11/22/23 Unknown Urine Blood Negative (Negative) 11/22/23 Unknown Urine Nitrite Negative (Negative) 11/22/23 Unknown Urine Bilirubin Negative (Negative) 11/22/23 Unknown Urine Urobilinogen Negative (Negative) 11/22/23 Unknown Ur Leukocyte Esterase 1+ (Negative) H 11/22/23 Unknown Urine WBC (Auto) 0-5 /hpf (0-5) 11/22/23 Unknown Urine RBC (Auto) 0-2 /hpf (0-2) 11/22/23 Unknown U Hyaline Cast (Auto) 0-2 /lpf (0-2) 11/22/23 Unknown U Epithel Cells (Auto) 0-2 /hpf (0-2) 11/22/23 Unknown Urine Bacteria (Auto) None Seen (None Seen) 11/22/23 Unknown Anaplasma Smear See Comment 11/22/23 09:25 Babesia Smear See Comment 11/22/23 09:25 Lyme Disease Screen Positive (Negative) H 11/22/23 04:23 Lyme Tier 2 IgG Confirm Positive (Negative) H 11/22/23 04:23 Lyme Tier 2 IgM Confirm Negative (Negative) 11/22/23 04:23 Hepatitis C Ab Screen Negative (Negative) 11/22/23 09:25 Impressions Abdomen/Pelvis CT 11/22/23 01:32 Exam(s): CT ABDOMEN + PELVIS With Contrast EXAM: CT Abdomen and Pelvis With Intravenous Contrast CLINICAL HISTORY: Reason for exam: mid abd pain. TECHNIQUE: Axial computed tomography images of the abdomen and pelvis with intravenous contrast. CTDI is 27.51 mGy and DLP is 1328.43 mGy-cm. Automated exposure control was utilized for the study. A dose lowering technique was utilized adhering to the principles of ALARA. CONTRAST: Contrast must be dictated COMPARISON: No relevant prior studies available. FINDINGS: Lung bases: Unremarkable. No mass. No consolidation. ABDOMEN: Liver: Unremarkable. No mass. Gallbladder and bile ducts: Unremarkable. No calcified stones. No ductal dilation. Pancreas: Unremarkable. No mass. No ductal dilation. Spleen: Unremarkable. No splenomegaly. Adrenals: Unremarkable. No mass. Kidneys and ureters: Unremarkable. No solid mass. No hydronephrosis. Stomach and bowel: Gastric sleeve. Diverticulosis, without acute diverticulitis. No small bowel obstruction. No free intraperitoneal air. PELVIS: Appendix: No findings to suggest acute appendicitis. Bladder: Unremarkable. No mass. Reproductive: Unremarkable as visualized. ABDOMEN and PELVIS: Intraperitoneal space: Unremarkable. No free air. No significant fluid collection. Bones/joints: Degenerative changes of the spine. No acute fracture. No dislocation. Soft tissues: Unremarkable. Vasculature: Atherosclerotic changes of the aorta. No abdominal aortic aneurysm. Lymph nodes: Unremarkable. No enlarged lymph nodes. IMPRESSION: Diverticulosis, without acute diverticulitis. No small bowel obstruction. No free intraperitoneal air. Electronically signed by: Anuj Mcmullen MD 11/22/23 02:52 AM Hospital Course (1) Positive Lyme disease serology: (2) Lyme disease: (3) Atrioventricular block, Mobitz type 1, Wenckebach: (4) Hypertension: Plan Her lyme serology was positive for IgG and IgM antibodies. Her CT A/P was negative. She was started on rocephin and doxycycline. She was seen by cardiology. She did have intermittent episodes of Mobitz1 heart block during night time, which are likely related to her sleep apnea, but unable to rule out lyme carditis completely. Nevertheless, she has improved significantly on empiric rocephin/doxy. Discussed with cardiology who cleared her for discharge home on doxycycline. She is anxious to go home. Will discharge her on a course of doxycycline for a total of 3 weeks assuming it to be lyme carditis. Recommended to follow up with PCP for final results of the western blot test to decide further on the antibiotics. She will also see cardiology as OP. She is comfortable and stable for discharge home. Total Time Total Time Spent Total Time Spent (In Minutes): 35 Discharge Plan Discharge Items Patient Disposition: Home - Self-Care Reason For Visit: ABD PAIN, heart block mobitz 1 Discharge Diagnosis: Suspected lyme disease, Mobitz type 1 heart block Condition on Discharge: Good Activity: Resume your previous activity Non-emergency contact: Primary Care Provider and Aerologist Call non-emergency contact if: you have any medication questions, your symptoms worsen and you have a fever Follow-up/Referrals: Any Gutierrez MD [Primary Care Provider] - (Date & Time 11/30/2023 1:00 PM Provider Rigo Moss MD Department Family [facility] ) Diet: Regular Addtl Attending Provider Instructions: Continue the antibiotic doxycycline twice daily for 2-3 weeks assuming that you have lyme disease while awaiting for the confirmatory test of lyme disease which is still pending. Follow up with your family doctor with the final results and further management Follow up with the heart doctor. Pending Studies at Discharge: Yes (Western blot) Stand-Alone Forms: My [employer], Smoking Cessation Medications and DC Order Prescriptions: New doxycycline hyclate 100 mg Capsule 100 mg PO BID 18 Days Qty: 36 0RF Continued amlodipine 10 mg tablet 10 mg PO QAM losartan 100 mg tablet 100 mg PO QAM Discharge Orders: Discharge Order (Routine); Ordered 11/24/23 Ordered By: Ayaan Ramirez Admission Data Admit Date/Time: 11/22/23 06:57 Attending Provider: Charles Luciano Admit Provider: Rocky Pappas Primary Care Provider: Any Gutierrez Other Providers: Rocky Pappas; Kiersten Drew; Johnathan Cr; Graeme Davis; Arturo Adorno; Henry Soler; Jose Araya; Ira Castañeda; Renee Mcdonald; Meg George; Kiersten Zavala; Rahat Paige; James Armando; Gini Jimenez; Aria Tinsley; Lexy Donald; Jon Rodarte; Nic Beltran; Zakiya Weir Other Interventions: Discharge Summary Assessment (RN) Last Done: 11/24/23 15:06
--- NOTE | 2023-11-26 10:53 | Electrocardiogram Report ---
Test Reason : Blood Pressure : / mmHG Vent. Rate : 070 BPM Atrial Rate : 070 BPM P-R Int : 248 ms QRS Dur : 096 ms QT Int : 428 ms P-R-T Axes : 060 038 031 degrees QTc Int : 462 ms Sinus rhythm with 1st degree A-V block Otherwise normal ECG When compared with ECG of 22-NOV-2023 05:04, Sinus rhythm is no longer with 2nd degree A-V block (Mobitz I) Confirmed by Alban Garcia ([id number]) on 11/26/2023 10:53:14 AM Referred By: REFERRED SELF Confirmed By:Alban Garcia
== END 2023-11-24 16:54 | disposition home or self-care (01) | DRG 309 ==
LOC: ED 01:06 → 2S 06:57